=== PATIENT | female | born 1990 | race Caucasian/White ===

== ENCOUNTER 2020-02-22 21:25 | Emergency (ER) | payer MEDICAID, SELFPAY ==
[2020-02-22 21:32] VITALS: BP 125/70; BP 140/90; PULSE 58; PULSE 60; RESP 18; TEMP 37.2; O2SAT 100; BMI 40.6
[2020-02-22 21:39] LABS: Glucose, Whole Blood 138 mg/dL (60-115)
--- NOTE | 2020-02-22 21:39 | ED_ITS ---
HPI - Nausea/Vomiting/Diarrhea General Chief complaint: Nausea/Vomiting/Diarrhea Stated complaint: NAUSEA,VOMITING Time Seen by Provider: 02/22/20 21:28 Source: patient Mode of arrival: EMS Limitations: no limitations History of Present Illness HPI Narrative: This is a 29-year-old female with past medical history of asthma presents via EMS with development of nausea, vomiting, diarrhea that started yesterday and is associated with epigastric pain and she states she has had this before and that it was gastritis at that time. Otherwise patient denies fever, urinary pain/burning/frequency. And states her LMP was last month and she is sexually active. She denies any sick contacts Related Data Previous Rx's Medication Instructions Recorded omeprazole 40 mg PO DAILY 30 Days #30 cap 02/23/20 ondansetron HCl [Zofran] 4 mg PO Q6H PRN #10 tab 02/23/20 Allergies Allergy/AdvReac Type Severity Reaction Status Date / Time No Known Allergies Allergy Verified 02/22/20 21:38 Review of Systems Review of Systems: Pertinent positives and negatives as stated in HPI 10 point review of systems otherwise negative. PMFSH Past Medical History Source: nursing notes reviewed Medical History Acid reflux Asthma Gastritis Social History Social History Smoked in Last 30 Days: No Advance Directives: No Advance Directives Information Provided: No Physical Exam Vital Signs: Vital Signs: Last Vital Signs Temp 98.9 F 02/22/20 21:32 Pulse 58 02/22/20 21:32 Resp 18 02/22/20 21:32 BP 125/70 02/22/20 21:32 Pulse Ox 100 02/22/20 21:32 Body Mass Index 40.6 VITAL SIGNS: Reviewed. GENERAL: Well developed, well nourished, in no acute distress. HEAD: Normocephalic/atraumatic, EYES: PERRLA, EOMI intact without pain, no nystagmus/pallor/icterus noted EARS: Ext canals without abnormality, TMs non-bulging and non-erythematous NOSE: Nares patent bilateral OROPHARYNX: no oral lesions noted, posterior pharynx clear and non-erythematous without noted tonsillar enlargement/erythema/exudates NECK: Supple, no adenopathy LUNGS: Normal breath sounds. No adventitious sounds or accessory muscle use. SpO2<100> CARDIOVASCULAR: Regular rate and rhythm without noted murmurs, no JVD or lower extremity edema. ABDOMEN: Soft, tenderness to palpation at the epigastrium as well as right upper quadrant and right lower quadrant, non-distended with bowel sounds. No rigidity. No guarding. No palpable masses or hernias noted MUSCULOSKELETAL: No tenderness, deformities, or effusions noted on gross inspection. EXTREMITIES: No cyanosis, clubbing or edema. SKIN: Inspection of the skin reveals no rashes, ulcerations, jaundice, pallor, or petechiae. NEUROLOGIC: Alert and oriented x 4. Strength and sensation to light touch were grossly intact x 4. Course Course Course Narrative: This is a 29-year-old female with history and clinical presentation suggestive of gastroenteritis, gastritis, pancreatitis, cholecystitis and doubt pancreatitis or diverticulitis at this time. On review of all investigations although there is a leukocytosis 20 on review of all evidence this seems to be most consistent with a stress response. CT scan was negative for any acute findings and is suspected that this may be hyperemesis cannabis. All results and findings were discussed with patient, she will be provided with the p.o. trial and then discharged home as long as she tolerates. MDM - Nausea/Vomiting/Diarrhea Lab Data Result diagrams: 02/22/20 21:55 02/22/20 21:55 Labs: Lab Results 02/22/20 02/22/20 02/22/20 Range/Units 21:35 21:55 21:55 WBC 20.7 H (4.8-10.8) X10*3/uL RBC 4.99 (4.20-5.50) X10*6/uL Hgb 14.1 (12.0-16.0) g/dl Hct 41.6 (37-47) % MCV 83.4 (80-98) fL MCH 28.3 (27.0-33.0) pg MCHC 33.9 (31.0-35.0) g/dl RDW 12.9 (11.0-16.0) % Plt Count 294 (160-400) X10*3/uL MPV 10.4 (9.4-12.3) fL Immature Gran % (Auto) 0.7 H (0.0-0.4) % Neut % (Auto) 87.0 H (45-73) % Lymph % (Auto) 8.9 L (20-40) % [place] % (Auto) 3.3 (2-11) % Eos % (Auto) 0.0 (0-4) % Baso % (Auto) 0.1 (0-2) % Lymph # (Auto) 1.9 (1.2-4.9) X10*3/uL [place] # (Auto) 0.7 (0.1-1.2) X10*3/uL Eos # (Auto) 0.0 (0.0-0.4) X10*3/uL Baso # (Auto) 0.0 (0.0-0.2) X10*3/uL Abs Immat Gran (auto) 0.14 H (0.00-0.03) X10*3/uL Absolute Neuts (auto) 18.1 H (2.0-8.3) X10*3/uL Absolute Nucleated RBC 0.000 (0.0-0.012) X10*3/uL Nucleated RBC % (auto) 0.0 (0.0-0.2) /100WBC Sodium 137 (135-145) mmol/L Potassium 3.9 (3.3-5.1) mmol/l Chloride 104 (96-108) mmol/L Carbon Dioxide 21 L (22-29) mmol/L Anion Gap 16 (12-20) BUN 15 (9-16) mg/dL Creatinine 0.78 (0.5-1.4) mg/dL Estim Creat Clear Calc 123.8 Estimated GFR > 60 POC Glucose 138 H (60-115) mg/dL Random Glucose 147 H (60-115) mg/dL Calcium 8.9 (8.4-10.2) mg/dL Total Bilirubin 0.6 (0.0-1.0) mg/dL AST 31 (5-31) U/L ALT 46 H (0-31) U/L Alkaline Phosphatase 74 (39-117) U/L Total Protein 8.4 H (6.5-8.0) g/dL Albumin 4.7 (3.5-5.0) g/dL Lipase 13 (8-78) U/L Urine Color Urine Appearance Urine pH (5.0-8.0) Ur Specific [place] (1.005-1.025) Urine Protein (NEG-TRACE) MG/DL Urine Glucose (UA) (NEG) MG/DL Urine Ketones (NEG) MG/DL Urine Blood (NEG) Urine Nitrite (NEG) Ur Leukocyte Esterase (NEG) Urine RBC (0) /HPF Urine WBC (0-4) /HPF Ur Squamous Epith Cells /LPF Urine Bacteria /LPF Urine Mucus /LPF Urine Test (NEGATIVE) 02/22/20 Range/Units 21:55 WBC (4.8-10.8) X10*3/uL RBC (4.20-5.50) X10*6/uL Hgb (12.0-16.0) g/dl Hct (37-47) % MCV (80-98) fL MCH (27.0-33.0) pg MCHC (31.0-35.0) g/dl RDW (11.0-16.0) % Plt Count (160-400) X10*3/uL MPV (9.4-12.3) fL Immature Gran % (Auto) (0.0-0.4) % Neut % (Auto) (45-73) % Lymph % (Auto) (20-40) % [place] % (Auto) (2-11) % Eos % (Auto) (0-4) % Baso % (Auto) (0-2) % Lymph # (Auto) (1.2-4.9) X10*3/uL [place] # (Auto) (0.1-1.2) X10*3/uL Eos # (Auto) (0.0-0.4) X10*3/uL Baso # (Auto) (0.0-0.2) X10*3/uL Abs Immat Gran (auto) (0.00-0.03) X10*3/uL Absolute Neuts (auto) (2.0-8.3) X10*3/uL Absolute Nucleated RBC (0.0-0.012) X10*3/uL Nucleated RBC % (auto) (0.0-0.2) /100WBC Sodium (135-145) mmol/L Potassium (3.3-5.1) mmol/l Chloride (96-108) mmol/L Carbon Dioxide (22-29) mmol/L Anion Gap (12-20) BUN (9-16) mg/dL Creatinine (0.5-1.4) mg/dL Estim Creat Clear Calc Estimated GFR POC Glucose (60-115) mg/dL Random Glucose (60-115) mg/dL Calcium (8.4-10.2) mg/dL Total Bilirubin (0.0-1.0) mg/dL AST (5-31) U/L ALT (0-31) U/L Alkaline Phosphatase (39-117) U/L Total Protein (6.5-8.0) g/dL Albumin (3.5-5.0) g/dL Lipase (8-78) U/L Urine Color YELLOW Urine Appearance HAZY Urine pH 6.5 (5.0-8.0) Ur Specific [place] >= 1.030 H (1.005-1.025) Urine Protein 1+ H (NEG-TRACE) MG/DL Urine Glucose (UA) NEG (NEG) MG/DL Urine Ketones 40 (NEG) MG/DL Urine Blood 2+ H (NEG) Urine Nitrite NEG (NEG) Ur Leukocyte Esterase NEG (NEG) Urine RBC 15-29 H (0) /HPF Urine WBC 0 (0-4) /HPF Ur Squamous Epith Cells 2+ /LPF Urine Bacteria TRACE /LPF Urine Mucus 3+ /LPF Urine Test NEGATIVE (NEGATIVE) Discharge Plan Discharge Clinical Impression: Cannabis hyperemesis syndrome concurrent with and due to cannabis dependence, Gastroenteritis Patient Disposition: Home, Self-Care Instructions: Diet for Stomach Ulcers and Gastritis (ED), Gastroenteritis (ED) Additional Instructions: 1. Continue to increase your fluid intake especially with water. 2. Follow-up with your primary care provider by calling the office in the [facility]. 3. Decrease the amount marijuana smoked. The patient and/or family acknowledge understanding of results (as applicable), diagnosis, treatment plan, need for follow up, and symptoms that should prompt a return to the emergency room. Prescriptions: New ondansetron HCl [Zofran] 4 mg tablet 4 mg PO Q6H PRN (Reason: nausea and vomiting) Qty: 10 RF: 0 omeprazole 40 mg capsule,delayed release(DR/EC) 40 mg PO DAILY 30 Days Qty: 30 RF: 0 Referrals: [facility] [Primary Care Provider] - 2 days (Evaluation for gastritis and possible hyperemesis cannabis)
[2020-02-22] MEDS: Lidocaine HCl Viscous 2 % 15 ML SOLUTION 10 ML MUCOUS MEM (21:47)
[2020-02-22] MEDS: Magnesium Hydrox/Alum Hydrox 30 ML ORAL.SUSP PO (21:47)
[2020-02-22] MEDS: ondansetron HCL 4 MG/2 ML VIAL IVPUSH (21:47)
[2020-02-22] MEDS: 0.9 % Sodium Chloride 1,000 ML 999 ML IV (21:47)
[2020-02-22] MEDS: Famotidine 20 MG TABLET PO (21:47)
[2020-02-22 22:02] LABS: Basophils Percent Auto 0.1 % (0-2); Hematocrit 41.6 % (37-47); Hemoglobin 14.1 g/dl (12.0-16.0); Imm Gran Abs Auto 0.14 X10*3/uL (0.00-0.03); Imm Gran Pct Auto 0.7 % (0.0-0.4); Lymphocytes Absolute Auto 1.9 X10*3/uL (1.2-4.9); Lymphocytes Percent Auto 8.9 % (20-40); Mean Corpuscular HGB Conc 33.9 g/dl (31.0-35.0); Mean Corpuscular Hemoglobin 28.3 pg (27.0-33.0); Mean Corpuscular Volume 83.4 fL (80-98); Mean Platelet Volume 10.4 fL (9.4-12.3); Monocytes Absolute Auto 0.7 X10*3/uL (0.1-1.2); Monocytes Percent Auto 3.3 % (2-11); Neutrophils Absolute Auto 18.1 X10*3/uL (2.0-8.3); Platelet Count 294 X10*3/uL (160-400); Red Blood Count 4.99 X10*6/uL (4.20-5.50); Red Cell Distribution Width 12.9 % (11.0-16.0); White Blood Count 20.7 X10*3/uL (4.8-10.8)
[2020-02-22 22:03] LABS: MANUAL DIFF FLAG NO
[2020-02-22 22:07] LABS: Glucose Urine UA NEG (NEG); Leukocyte Esterase Urine NEG (NEG); Nitrite Urine NEG (NEG); PH 6.5 (5.0-8.0); Specific Gravity - Urine >= 1.030 (1.005-1.025); Urine Blood 2+ (NEG); Urine Ketones 40 MG/DL (NEG); Urine Protein 1+ MG/DL (NEG-TRACE)
[2020-02-22] MEDS: Metoclopramide HCl 10 MG/2 ML VIAL IVPUSH (22:08)
[2020-02-22] MEDS: diphenhydrAMINE HCL 50 MG/ML VIAL 25 MG IVPUSH (22:08)
[2020-02-22 22:09] LABS: Appearance Urine HAZY; Color Urine YELLOW
[2020-02-22 22:10] LABS: UPreg QC Valid YES; Urine Pregnancy NEGATIVE (NEGATIVE)
--- NOTE | 2020-02-22 22:21 | CT_ITS ---
EXAMINATION: CT ABDOMEN AND PELVIS WITH CONTRAST CLINICAL INFORMATION: Right-sided abdominal pain. COMPARISON: 05/26/2014. TECHNIQUE: Contiguous axial thin section helical images of the abdomen and pelvis were performed following the administration of 85 mL of intravenous Omnipaque 350. The data set was reformatted in the coronal and sagittal planes and reviewed on an independent workstation. DLP: 791 mGy-cm. FINDINGS: The visualized lung bases are clear. The visualized portions of the heart are unremarkable. The liver is of normal size and mild diffuse decreased attenuation without focal lesions nor intrahepatic biliary ductal dilation. A normal gallbladder is identified. There is no wall thickening or discernible pericholecystic fluid. The spleen, pancreas, adrenal glands are unremarkable. Both kidneys are of normal size and attenuation without hydronephrosis or nephrolithiasis. Following the administration of IV contrast, prompt symmetric nephrograms are displayed. There is no abdominal free fluid. There is neither mesenteric nor retroperitoneal lymphadenopathy. Normal unopacified loops of small and large bowel are identified. Normal appendix is identified. There is no pelvic free fluid. The urinary bladder is unremarkable. There is neither pelvic nor inguinal lymphadenopathy. Bone windows: Neither sclerotic nor lytic bone lesions are identified. CT/CT abdomen pelvis w con IMPRESSION: No evidence for acute abdominal or pelvic inflammatory or infectious processes. Automated exposure control (Care Dose) Adjustment of the mA and/or kv according to patient size (this includes techniques or standardized protocols for targeted exams where dose is matched to indication / reason for exam; i.e. extremities or head).
[2020-02-22 22:22] LABS: Alanine Aminotransferase 46 U/L (0-31); Albumin Level 4.7 g/dL (3.5-5.0); Alkaline Phosphatase 74 U/L (39-117); Anion Gap 16 (12-20); Aspartate Amino Transferase 31 U/L (5-31); Bilirubin Total 0.6 mg/dL (0.0-1.0); Blood Urea Nitrogen 15 mg/dL (9-16); Calcium 8.9 mg/dL (8.4-10.2); Carbon Dioxide 21 mmol/L (22-29); Chloride 104 mmol/L (96-108); Creatinine Clr Calc Pharmacy 123.8; Estimated Glomerular Filt Rate > 60; Glucose Random 147 mg/dL (60-115); Lipase 13 U/L (8-78); Potassium 3.9 mmol/l (3.3-5.1); Sodium 137 mmol/L (135-145); Total Protein 8.4 g/dL (6.5-8.0)
[2020-02-22 22:25] LABS: Squamous Epithelial Cell Urine 2+ /LPF; WBC Urine 0 /HPF (0-4)
[2020-02-22 22:26] LABS: Bacteria Urine TRACE /LPF; Mucus Urine 3+ /LPF
--- NOTE | 2020-02-22 22:30 | PC.NURSE ---
pt not tolerating po meds. to ct scan.
[2020-02-22] MEDS: LORazepam 2 MG/ML VIAL 1 MG IVPUSH (23:03)
[2020-02-22] MEDS: Prochlorperazine Edisylate 10 MG/2 ML VIAL 5 MG IVPUSH (23:03)
[2020-02-22] MEDS: iohexoL 350 MG/ML 100 ML INFUS..BTL IV (23:23)
== END 2020-02-23 01:30 | disposition home or self-care (01) ==
PROVIDERS: Emergency Provider Student in an Organized Health Care Education/Training Program
DX: K52.1 Toxic gastroenteritis and colitis (principal); F12.188 Cannabis abuse with other cannabis-induced disorder; R11.2 Nausea with vomiting, unspecified; Z79.899 Other long term (current) drug therapy
CPT/HCPCS: 36415; 74177; 80053; 81001; 81003; 81025; 82947; 83690; 85025; 96361; 96374; 96375; 99284; J1200; J2060; J2405; J2765; Q9967

== ENCOUNTER → 2020-05-31 12:49 | Outpatient (BNVA) | payer MEDICAID, SELFPAY | PROVIDERS: PCP Nurse Practitioner Family; Visit Provider Physician Assistant ==

== ENCOUNTER → 2020-06-09 07:50 | Outpatient (BNVA) | payer MEDICAID, SELFPAY | PROVIDERS: PCP Nurse Practitioner Family; Visit Provider Surgery ==

== ENCOUNTER → 2020-07-03 08:19 | Outpatient (BNVA) | payer MEDICAID, SELFPAY | PROVIDERS: PCP Nurse Practitioner Family; Visit Provider Surgery ==

== ENCOUNTER → 2020-07-13 08:08 | Outpatient (BNVA) | payer MEDICAID, SELFPAY | PROVIDERS: PCP Nurse Practitioner Family; Visit Provider Dietitian, Registered ==

== ENCOUNTER → 2020-07-25 08:14 | Outpatient (BNVA) | payer MEDICAID, SELFPAY | PROVIDERS: PCP Nurse Practitioner Family; Visit Provider Dietitian, Registered ==

== ENCOUNTER 2020-10-05 06:53 | Emergency (ER) | payer MEDICAID, SELFPAY ==
--- NOTE | ~2020-10-05 | CT_ITS ---
EXAMINATION: CT ABDOMEN AND PELVIS WITHOUT CONTRAST CLINICAL INFORMATION: Abdominal pain. Question kidney stones. Question gallstones. COMPARISON: February 22, 2020 TECHNIQUE: Multidetector volumetric imaging was performed from the superior aspect of the liver through the pubic symphysis. Sagittal and coronal reformatted images were obtained on the technologist's workstation. This CT examination was performed using dose optimization techniques as appropriate, variously including the following: *Automated exposure control *Adjustment of mA and/or kV according to patient size (this includes techniques or standardized protocols for targeted exams where dose is matched to indication/reason for exam; i.e. extremities or head) *Use of iterative reconstruction technique DLP: 861 mGy-cm FINDINGS: LUNG BASES: The visualized lung bases are unremarkable. No pleural or pericardial effusion. LIVER, GALLBLADDER, AND BILIARY TREE: There is diffuse fatty infiltration of the liver. No focal hepatic mass identified. No intrahepatic bile duct dilatation. The gallbladder is unremarkable with no evidence of radiopaque gallstones, gallbladder wall thickening, or obvious pericholecystic inflammatory changes. PANCREAS: Unremarkable. SPLEEN: Unremarkable. ADRENAL GLANDS: Unremarkable. KIDNEYS AND URETERS: The kidneys are normal in size, shape, and attenuation. No hydronephrosis, hydroureter, or calculi seen. No perinephric stranding. BLADDER: Decompressed. No definite abnormality appreciated. GASTROINTESTINAL TRACT: No free air or free fluid identified. No dilated loops of large or small bowel. No pericolonic inflammatory change. The appendix appears unremarkable. ABDOMINAL WALL: No significant hernia is appreciated. LYMPH NODES: No lymphadenopathy appreciated. VASCULAR: Unremarkable. PELVIC VISCERA: No free fluid or suspicious mass. Just inferior to the left adnexa there is question of some stranding versus vessels. This is similar to previous CT scan scan of February 22, 2020 No abnormal collection is appreciated. OSSEOUS STRUCTURES: No destructive bony lesions identified. There is degenerative disc disease seen at the L4-L5 level. There is a prominent posterior disc bulge with calcification at this level. CT/CT abdomen pelvis wo con IMPRESSION: Diffuse fatty infiltration of the liver. No evidence of obstructive uropathy. No evidence of acute cholecystitis. No evidence of bowel obstruction or ileus.
[2020-10-05 07:35] VITALS: BP 135/90; PULSE 93; RESP 16; TEMP 37; O2SAT 100
[2020-10-05 08:07] VITALS: BP 149/94; PULSE 101; RESP 18; TEMP 36.5; O2SAT 98
[2020-10-05 08:14] VITALS: BP 149/94; BMI 35.4
--- NOTE | 2020-10-05 08:36 | ED_ITS ---
HPI - Abdominal Pain General Chief Complaint: Abdominal Pain Stated Complaint: vomiting stomach pain Time Seen by Provider: 10/05/20 08:13 Source: patient Mode of arrival: ambulatory Limitations: no limitations History of Present Illness HPI narrative: Patient presents to ED for epigastric abdominal pain. Patient s tates pain for 3 days with nausea vomiting. Patient describes pain as acid burning sensation going up throat. Patient states history of acid reflux. Patient admits to smoking marijuana couple of days ago and then symptoms started. Patient was seen this past February with similar presentation. per triage patient was kicked out of her see 1 hour ago because she was making herself vomit. MD elicited complaint: abdominal pain Related Data Home Medications Medication Instructions Recorded Confirmed amitriptyline 10 mg tablet 10 mg PO BEDTIME 05/31/20 06/09/20 albuterol sulfate 90 mcg/actuation 2 puff INHALATION Q6H PRN 06/09/20 06/09/20 aerosol inhaler Previous Rx's Medication Instructions Recorded omeprazole 40 mg capsule,delayed 40 mg PO DAILY 30 Days #30 cap 02/23/20 release ondansetron HCl 4 mg tablet 4 mg PO Q6H PRN #10 tab 02/23/20 (Zofran) famotidine 20 mg tablet (Pepcid) 20 mg PO BID #20 tab 10/05/20 ondansetron HCl 4 mg tablet 4 mg PO Q6H PRN #16 tab 10/05/20 (Zofran) Allergies Allergy/AdvReac Type Severity Reaction Status Date / Time No Known Allergies Allergy Verified 05/31/20 13:21 Review of Systems Review of Systems Yes all other systems are reviewed and are negative Constitutional: Reports as per HPI and Reports no additional constitutional complaints Eyes: Reports as per HPI and Reports no additional eye complaints Reports system reviewed and no additional complaints, except as documented and Reports as per HPI Cardiovascular: Reports as per HPI and Reports no additional cardiovascular complaints Gastrointestinal: Reports as per HPI, Reports no additional gastrointestinal complaints, Reports abdominal pain, Reports nausea and Reports vomiting Genitourinary: Reports no additional female genitourinary complaints and Reports as per HPI Musculoskeletal: Reports no additional musculoskeletal complaints and Reports as per HPI Skin/Breast: Reports system reviewed and no additional complaints, except as docu and Reports as per HPI Reports system reviewed and no additional complaints, except as documented and Reports as per HPI Psychiatric: Reports no additional psychiatric complaints and Reports as per HPI Endocrine: Reports no additional endocrine complaints and Reports as per HPI Physical Exam Vital Signs: Vital Signs: Last Vital Signs Temp 98.0 F 10/05/20 11:42 Pulse 82 10/05/20 11:42 Resp 17 10/05/20 11:42 BP 130/77 10/05/20 11:42 Pulse Ox 95 10/05/20 11:42 Body Mass Index 35.4 Const: General: cooperative, healthy appearing, well developed, alert, awake, Physically active and acute distress Orientation/consciousness: patient oriented x3 HENMT: Head: Yes normal to inspection, Yes No palpable skull fracture present, Yes normocephalic, Yes atraumatic and No abrasion Ears: hearing grossly normal bilaterally, external ears normal, TM's normal bilaterally, TM normal on the right, TM normal on the left, EAC's normal, mastoids normal and no periauricular adenopathy Eyes: General: appearance normal, both eyes and all related structures Neck: Neck: Yes normal visual inspection, Yes full ROM, Yes no lymphadenopathy, Yes no meningeal signs, Yes trachea midline, Yes supple and No tender Chest: Chest palpation & inspection: normal inspection of the chest and normal palpation of entire chest wall Resp: Effort & Inspection: normal respiratory effort and able to speak in complete sentences Auscultation: clear to auscultation bilaterally Cardio: Jugular venous distension: no JVD Heart sounds: S1 normal heart sound present and S2 normal heart sound present GI: Inspection: Yes normal to inspection and No abdominal wall ecchymosis Palpation (GI): Soft to palpation, not firm, Tenderness to palpation present (GI) in the epigastrum; Negative for not at McBurney's point, not periumbilically, not suprapubicly, [place]'s sign negative, obturator sign negative, psoas sign negative, with no rebound tenderness and Rovsing's sign negative, no guarding and not rigid : General: No CVA tenderness and Yes no CVA tenderness Back/Spine/Pelvis: Back: no CVA tenderness, No CVA tenderness and No back tenderness Skin: General skin exam: no rashes or lesions noted and elasticity normal Neuro: General: patient oriented x3, gait normal, no meningeal signs and CN's II-XI intact bilaterally Cranial nerves: Yes CN's II-XII intact bilaterally Extrem: General: Yes normal to inspection and Yes full ROM Psych: Appearance: grossly normal, well kempt and not disheveled Course Course Course Narrative: Will get records from [facility]. Will order basic labs and GERD medication. Reevaluation(s) Reevaluation #1: Patient sleeping in bed not in any distress. Patient feels better. Patient's white count [id number]. Comparison to labs done in February of 2020 patient usually runs a high white blood cell count. Last visit [place] [id number]. Will re-evaluate abdomen. Waiting for lipase. Does not believe presently patient is abdominal CT scan. Patient had abdominal CT scans in February 2020 with similar presentation that was normal. Patient feeling better after receiving GI cocktail with Benadryl. Time: 10:27 Reevaluation #2: Patient urine showed blood so she was sent for CT scan of the abdomen which came back normal and negative for any acute etiology. Patient will be discharged with anti nausea medication his stool to follow-up with a PCP. Patient had another episode of emesis but resolved with Zofran befor CT scan being done. Time: 13:25 Reevaluation #3: CT scan came back normal. Patient discharged with antiemetics told to follow-up with PCP. Diagnosis cyclic vomiting versus GERD. Patient passed p.o. challenge Time: 13:40 MDM - Abdominal Pain MDM Narrative Medical decision making narrative: Cyclic vomiting Lab Data Result diagrams: 10/05/20 08:50 10/05/20 08:50 Labs: Lab Results 10/05/20 10/05/20 10/05/20 Range/Units 08:50 08:50 08:50 WBC 23.2 H (4.8-10.8) X10*3/uL RBC 5.60 H (4.20-5.50) X10*6/uL Hgb 15.4 (12.0-16.0) g/dl Hct 46.8 (37-47) % MCV 83.6 (80-98) fL MCH 27.5 (27.0-33.0) pg MCHC 32.9 (31.0-35.0) g/dl RDW 12.9 (11.0-16.0) % Plt Count 389 D (160-400) X10*3/uL MPV 10.1 (9.4-12.3) fL Immature Gran % (Auto) 0.6 H (0.0-0.4) % Neut % (Auto) 78.7 H (45-73) % Lymph % (Auto) 12.9 L (20-40) % [place] % (Auto) 7.6 (2-11) % Eos % (Auto) 0.0 (0-4) % Baso % (Auto) 0.2 (0-2) % Lymph # (Auto) 3.0 (1.2-4.9) X10*3/uL [place] # (Auto) 1.8 H (0.1-1.2) X10*3/uL Eos # (Auto) 0.0 (0.0-0.4) X10*3/uL Baso # (Auto) 0.0 (0.0-0.2) X10*3/uL Abs Immat Gran (auto) 0.13 H (0.00-0.03) X10*3/uL Absolute Neuts (auto) 18.3 H (2.0-8.3) X10*3/uL Absolute Nucleated RBC 0.000 (0.0-0.012) X10*3/uL Nucleated RBC % (auto) 0.0 (0.0-0.2) /100WBC Smear Tech's Comments VERIFIED Sodium 144 (135-145) mmol/L Potassium 4.0 (3.3-5.1) mmol/L Chloride 108 (96-108) mmol/L Carbon Dioxide 23 (22-29) mmol/L Anion Gap 17 (12-20) BUN 18 H (9-16) mg/dL Creatinine 0.97 (0.5-1.4) mg/dL Estim Creat Clear Calc 91.5 Estimated GFR > 60 Random Glucose 119 H (60-115) mg/dL Calcium 10.6 H D (8.4-10.2) mg/dL Total Bilirubin 0.6 (0.0-1.0) mg/dL Direct Bilirubin 0.3 (0.0-0.5) mg/dL AST 34 H (5-31) U/L ALT 49 H (0-31) U/L Alkaline Phosphatase 90 D (39-117) U/L Total Protein 9.4 H (6.5-8.0) g/dL Albumin 4.8 (3.5-5.0) g/dL Lipase 17 (8-78) U/L Beta HCG, Quant < 2 mIU/mL Urine Color Urine Appearance Urine pH (5.0-8.0) Ur Specific [place] (1.005-1.025) Urine Protein (NEG-TRACE) MG/DL Urine Glucose (UA) (NEG) MG/DL Urine Ketones (NEG) MG/DL Urine Blood (NEG) Urine Nitrite (NEG) Ur Leukocyte Esterase (NEG) Urine RBC (0) /HPF Urine WBC (0-4) /HPF Ur Squamous Epith Cells /LPF Urine Bacteria /LPF 10/05/20 Range/Units 11:27 WBC (4.8-10.8) X10*3/uL RBC (4.20-5.50) X10*6/uL Hgb (12.0-16.0) g/dl Hct (37-47) % MCV (80-98) fL MCH (27.0-33.0) pg MCHC (31.0-35.0) g/dl RDW (11.0-16.0) % Plt Count (160-400) X10*3/uL MPV (9.4-12.3) fL Immature Gran % (Auto) (0.0-0.4) % Neut % (Auto) (45-73) % Lymph % (Auto) (20-40) % [place] % (Auto) (2-11) % Eos % (Auto) (0-4) % Baso % (Auto) (0-2) % Lymph # (Auto) (1.2-4.9) X10*3/uL [place] # (Auto) (0.1-1.2) X10*3/uL Eos # (Auto) (0.0-0.4) X10*3/uL Baso # (Auto) (0.0-0.2) X10*3/uL Abs Immat Gran (auto) (0.00-0.03) X10*3/uL Absolute Neuts (auto) (2.0-8.3) X10*3/uL Absolute Nucleated RBC (0.0-0.012) X10*3/uL Nucleated RBC % (auto) (0.0-0.2) /100WBC Smear Tech's Comments Sodium (135-145) mmol/L Potassium (3.3-5.1) mmol/L Chloride (96-108) mmol/L Carbon Dioxide (22-29) mmol/L Anion Gap (12-20) BUN (9-16) mg/dL Creatinine (0.5-1.4) mg/dL Estim Creat Clear Calc Estimated GFR Random Glucose (60-115) mg/dL Calcium (8.4-10.2) mg/dL Total Bilirubin (0.0-1.0) mg/dL Direct Bilirubin (0.0-0.5) mg/dL AST (5-31) U/L ALT (0-31) U/L Alkaline Phosphatase (39-117) U/L Total Protein (6.5-8.0) g/dL Albumin (3.5-5.0) g/dL Lipase (8-78) U/L Beta HCG, Quant mIU/mL Urine Color YELLOW Urine Appearance HAZY Urine pH 6.0 (5.0-8.0) Ur Specific [place] 1.025 (1.005-1.025) Urine Protein 1+ H (NEG-TRACE) MG/DL Urine Glucose (UA) NEG (NEG) MG/DL Urine Ketones 15 (NEG) MG/DL Urine Blood 2+ H (NEG) Urine Nitrite NEG (NEG) Ur Leukocyte Esterase NEG (NEG) Urine RBC 0-2 (0) /HPF Urine WBC 0-2 (0-4) /HPF Ur Squamous Epith Cells TRACE /LPF Urine Bacteria TRACE /LPF Discharge Plan Discharge Clinical Impression: GERD (gastroesophageal reflux disease), Cyclical vomiting Patient Disposition: Home, Self-Care Instructions: Gastroesophageal Reflux Disease (ED), Cyclic Vomiting Syndrome (ED) Additional Instructions: Return to the ED immediately for worsening belly pain, intractable nausea/vomiting, fever, chills, dysuria, hematuria, flank pain, chest pain, shortness of breath, ir any other concerning symptoms Prescriptions: New ondansetron HCl [Zofran] 4 mg tablet 4 mg PO Q6H PRN (Reason: nause) Qty: 16 RF: 0 famotidine [Pepcid] 20 mg tablet 20 mg PO BID Qty: 20 RF: 0 No Action ondansetron HCl [Zofran] 4 mg tablet 4 mg PO Q6H PRN (Reason: nausea and vomiting) Qty: 10 RF: 0 omeprazole 40 mg capsule,delayed release(DR/EC) 40 mg PO DAILY 30 Days Qty: 30 RF: 0 amitriptyline 10 mg tablet 10 mg PO BEDTIME RF: 0 albuterol sulfate 90 mcg/actuation HFA aerosol inhaler 2 puff inhalation Q6H PRNRF: 0 Referrals: Liudmila Wheeler [Primary Care Provider] - 2 days (Cyclic vomiting/GERD. CT scan came back negative for any acute abdominal etiology. Labs at baseline.) Stand Alone Forms: Work/School Release Interventions: ED Discharge Assessment Last Done: 10/05/20 13:48 Discharge Date/Time: 10/05/20 13:48 Print Language: Pakistani [facility] Past Medical History Medical History Acid reflux Asthma Gastritis GERD (gastroesophageal reflux disease) Morbid obesity Surgical History (Updated 05/31/20 @ 13:13 by Randy [place]) No significant past surgical history Family History Family History (Updated 05/31/20 @ 13:14 by LISA Neal) Mother No problems noted. Father No problems noted. Brother No problems noted. Brother No problems noted. Social History Social History (Updated 05/31/20 @ 13:14 by Randy [place]) Alcohol intake: never Advance Directives: No Advance Directives Information Provided: No
[2020-10-05 08:56] LABS: Basophils Percent Auto 0.2 % (0-2); Hematocrit 46.8 % (37-47); Imm Gran Abs Auto 0.13 X10*3/uL (0.00-0.03); Imm Gran Pct Auto 0.6 % (0.0-0.4); Lymphocytes Percent Auto 12.9 % (20-40); MANUAL DIFF FLAG SCAN; Mean Corpuscular HGB Conc 32.9 g/dl (31.0-35.0); Mean Corpuscular Hemoglobin 27.5 pg (27.0-33.0); Mean Corpuscular Volume 83.6 fL (80-98); Mean Platelet Volume 10.1 fL (9.4-12.3); Monocytes Absolute Auto 1.8 X10*3/uL (0.1-1.2); Monocytes Percent Auto 7.6 % (2-11); Neutrophils Absolute Auto 18.3 X10*3/uL (2.0-8.3); Neutrophils Percent Auto 78.7 % (45-73); Platelet Count 389 X10*3/uL (160-400); Red Cell Distribution Width 12.9 % (11.0-16.0); SCAN SMEAR FLAG 1; White Blood Count 23.2 X10*3/uL (4.8-10.8)
[2020-10-05] MEDS: Famotidine/PF 20 MG/2 ML VIAL IVPUSH (08:56)
[2020-10-05] MEDS: diphenhydrAMINE HCL 50 MG/ML VIAL IVPUSH (08:56)
[2020-10-05] MEDS: PHENobarb/Hyoscy/Atropine/Scop 10 ML ELIXIR PO (08:56)
[2020-10-05] MEDS: Lidocaine HCl Viscous 2 % 15 ML SOLUTION MUCOUS MEM (08:58)
[2020-10-05] MEDS: 0.9 % Sodium Chloride 1,000 ML 999 ML IV (08:58)
[2020-10-05 08:59] LABS: Hemoglobin 15.4 g/dl (12.0-16.0)
[2020-10-05 09:23] LABS: Alanine Aminotransferase 49 U/L (0-31); Albumin Level 4.8 g/dL (3.5-5.0); Alkaline Phosphatase 90 U/L (39-117); Anion Gap 17 (12-20); Aspartate Amino Transferase 34 U/L (5-31); Bilirubin Direct 0.3 mg/dL (0.0-0.5); Bilirubin Total 0.6 mg/dL (0.0-1.0); Blood Urea Nitrogen 18 mg/dL (9-16); Calcium 10.6 mg/dL (8.4-10.2); Carbon Dioxide 23 mmol/L (22-29); Chloride 108 mmol/L (96-108); Creatinine Clr Calc Pharmacy 91.5; Estimated Glomerular Filt Rate > 60; Glucose Random 119 mg/dL (60-115); Sodium 144 mmol/L (135-145); Total Protein 9.4 g/dL (6.5-8.0)
[2020-10-05 09:24] LABS: HCG Quantitative < 2 mIU/mL
[2020-10-05 09:35] LABS: SLIDE REVIEW VERIFIED
[2020-10-05 10:51] LABS: Lipase 17 U/L (8-78)
[2020-10-05 11:35] LABS: Glucose Urine UA NEG (NEG); Leukocyte Esterase Urine NEG (NEG); Nitrite Urine NEG (NEG); Specific Gravity - Urine 1.025 (1.005-1.025); UACC Culture Trigger NO; Urine Blood 2+ (NEG); Urine Ketones 15 MG/DL (NEG); Urine Protein 1+ MG/DL (NEG-TRACE)
[2020-10-05 11:38] LABS: Appearance Urine HAZY; Color Urine YELLOW
[2020-10-05 11:42] VITALS: BP 130/77; PULSE 82; RESP 17; TEMP 36.7; O2SAT 95
[2020-10-05 11:43] LABS: Bacteria Urine TRACE /LPF; RBC Urine 0-2 /HPF (0); Squamous Epithelial Cell Urine TRACE /LPF; WBC Urine 0-2 /HPF (0-4)
== END 2020-10-05 13:48 | disposition home or self-care (01) ==
PROVIDERS: Physician Assistant; Emergency Provider Emergency Medicine; PCP Nurse Practitioner Family
DX: K21.9 Gastro-esophageal reflux disease without esophagitis (principal); R11.15 Cyclical vomiting syndrome unrelated to migraine; R10.13 Epigastric pain; F12.99 Cannabis use, unspecified with unspecified cannabis-induced disorder; Z79.899 Other long term (current) drug therapy
CPT/HCPCS: 36415; 74176; 80053; 80076; 81001; 82248; 83690; 84702; 85025; 96365; 96372; 96375; 99284; J1200; J2405

== ENCOUNTER 2020-10-30 01:52 | Emergency (ER) | payer MEDICAID, SELFPAY ==
[2020-10-30 02:33] VITALS: BP 148/79; PULSE 60; RESP 16; TEMP 36.4; O2SAT 96; BMI 35.4
[2020-10-30 03:21] LABS: MANUAL DIFF FLAG NO
[2020-10-30 03:23] LABS: Basophils Percent Auto 0.2 % (0-2); Eosinophils Percent Auto 0.1 % (0-4); Hematocrit 42.7 % (37-47); Hemoglobin 14.1 g/dl (12.0-16.0); Imm Gran Pct Auto 0.6 % (0.0-0.4); Lymphocytes Absolute Auto 1.7 X10*3/uL (1.2-4.9); Lymphocytes Percent Auto 9.6 % (20-40); Mean Corpuscular Hemoglobin 27.3 pg (27.0-33.0); Mean Corpuscular Volume 82.8 fL (80-98); Mean Platelet Volume 10.1 fL (9.4-12.3); Monocytes Absolute Auto 0.5 X10*3/uL (0.1-1.2); Monocytes Percent Auto 2.6 % (2-11); Neutrophils Absolute Auto 15.7 X10*3/uL (2.0-8.3); Neutrophils Percent Auto 86.9 % (45-73); Platelet Count 324 X10*3/uL (160-400); Red Blood Count 5.16 X10*6/uL (4.20-5.50); Red Cell Distribution Width 13.1 % (11.0-16.0)
[2020-10-30] MEDS: ondansetron HCL 4 MG/2 ML VIAL IVPUSH (03:23)
[2020-10-30 03:37] LABS: COVID-19 Test Negative (Negative); IDNOW Serial# 9DD0AD1C
[2020-10-30 03:47] LABS: Alanine Aminotransferase 64 U/L (0-31); Albumin Level 4.5 g/dL (3.5-5.0); Alkaline Phosphatase 85 U/L (39-117); Anion Gap 16 (12-20); Aspartate Amino Transferase 36 U/L (5-31); Bilirubin Total 0.7 mg/dL (0.0-1.0); Blood Urea Nitrogen 10 mg/dL (9-16); Carbon Dioxide 21 mmol/L (22-29); Chloride 107 mmol/L (96-108); Creatinine Clr Calc Pharmacy 108.2; Estimated Glomerular Filt Rate > 60; Glucose Random 168 mg/dL (60-115); Lipase 26 U/L (8-78); Potassium 3.8 mmol/L (3.3-5.1); Sodium 140 mmol/L (135-145); Total Protein 8.3 g/dL (6.5-8.0)
[2020-10-30] MEDS: diphenhydrAMINE HCL 50 MG/ML VIAL IVPUSH (04:07)
[2020-10-30] MEDS: 0.9 % Sodium Chloride 1,000 ML 999 ML IV (04:58)
[2020-10-30] MEDS: Ketorolac Tromethamine 15 MG/ML VIAL IVPUSH (05:24)
[2020-10-30] MEDS: LORazepam 2 MG/ML VIAL IVPUSH (05:27)
[2020-10-30] MEDS: Haloperidol Lactate 5 MG/ML VIAL IM (05:28)
--- NOTE | 2020-10-30 05:48 | ED.ABDPAIN ---
HPI - Abdominal Pain General Chief Complaint: Abdominal Pain Stated Complaint: abd pain Time Seen by Provider: 10/30/20 05:05 Source: patient Mode of arrival: ambulatory Limitations: no limitations History of Present Illness HPI narrative: Comes to emergency room complaining of abdominal pain and vomiting. Patient states she smoked marijuana several days ago. Patient has been evaluated for similar issues in the past. Related Data Home Medications Medication Instructions Recorded Confirmed amitriptyline 10 mg tablet 10 mg PO BEDTIME 05/31/20 06/09/20 albuterol sulfate 90 mcg/actuation 2 puff INHALATION Q6H PRN 06/09/20 06/09/20 aerosol inhaler Previous Rx's Medication Instructions Recorded omeprazole 40 mg capsule,delayed 40 mg PO DAILY 30 Days #30 cap 02/23/20 release ondansetron HCl 4 mg tablet 4 mg PO Q6H PRN #10 tab 02/23/20 (Zofran) famotidine 20 mg tablet (Pepcid) 20 mg PO BID #20 tab 10/05/20 ondansetron HCl 4 mg tablet 4 mg PO Q6H PRN #16 tab 10/05/20 (Zofran) metoclopramide HCl 10 mg tablet 10 mg PO Q6H PRN #14 tab 10/30/20 (Reglan) Allergies Allergy/AdvReac Type Severity Reaction Status Date / Time No Known Allergies Allergy Verified 10/30/20 02:32 Review of Systems Review of Systems Constitutional : No Weight loss, No Fever, No Chills, No Night Sweats, No Fatigue, No Malaise ENT/Mouth : No Hearing loss, No Ear Pain, No Nasal Congestion, No Sinus Pain, No Hoarseness, No sore throat, No Rhinorrhea, No Swallowing Difficulty Eyes: No Eye Pain, No Swelling, No Redness, No Foreign Body, No Discharge, No Vision Changes Cardiovascular : No Chest Pain, No SOB, No Dyspnea on Exertion, No Orthopnea, No Edema, No Palpitations Respiratory : No Cough, No Sputum, No Wheezing, No Smoke Exposure, No Dyspnea Gastrointestinal : Complaining of nausea and vomiting No Diarrhea, No Constipation, complaining of diffuse abdominal cramping No Hematochezia, No Melena Genitourinary : no irregular bleeding, No Dysuria, No Urinary Frequency, No Hematuria, No Urinary Incontinence, No Urgency, No Flank Pain, No Urinary Flow Changes, No Hesitancy Musculoskeletal : No joint pain, No Myalgias, No Joint Swelling Skin : No Skin Lesions, No rash Neuro : No Weakness, No Numbness, No Paresthesias, No Loss of Consciousness, No Dizziness, No Headache Psych : No Anxiety/Panic, No Depression, No SI/HI/AH/VH, No Social Issues, Heme/Lymph: No Bruising, No Bleeding,No Lymphadenopathy Endocrine : No Polyuria, No Polydipsia, No Temperature Intolerance Physical Exam Vital Signs: Vital Signs: Last Vital Signs Temp 97.6 F 10/30/20 02:33 Pulse 60 10/30/20 02:33 Resp 16 10/30/20 06:25 BP 148/79 H 10/30/20 02:33 Pulse Ox 96 10/30/20 02:33 Body Mass Index 35.4 Const: Other: Appearance: Alert. Oriented X3. Actively vomiting Eyes: Pupils equal, round and reactive to light. ENT: Pharynx normal. Neck: Normal inspection. Neck supple. No lymph nodes noted. No crepitus CVS: Normal heart rate and rhythm. Pulses normal. Normal S1 and S2 Respiratory: No respiratory distress. Breath sounds normal. No Wheezing. No rales Abdomen: Soft, mild to moderate diffuse tenderness Skin: Skin warm , diaphoretic. Normal skin color. Normal skin turgor. Extremities: No lower extremity edema. No lower extremity edema. No Lacerations. No Rash Neuro: Oriented X 3. No motor deficit. No sensory deficit. Moving all extermities. No slurred speech. Course Course Course Narrative: Patient stopped vomiting after multiple courses medication including diphenhydramine, Haldol IM, ketorolac, lorazepam, Zofran. Patient's symptoms likely secondary to cyclical vomiting. At this time, patient continues to feel better, not vomiting. Patient will be p.o. challenged, if she tolerates p.o., she can be discharged. Sign-out given to Dr. Banks [facility] - Abdominal Pain Lab Data Result diagrams: 10/30/20 03:18 10/30/20 03:18 Labs: Lab Results 10/30/20 10/30/20 10/30/20 Range/Units 03:18 03:18 03:18 WBC 18.0 H (4.8-10.8) X10*3/uL RBC 5.16 (4.20-5.50) X10*6/uL Hgb 14.1 (12.0-16.0) g/dl Hct 42.7 (37-47) % MCV 82.8 (80-98) fL MCH 27.3 (27.0-33.0) pg MCHC 33.0 (31.0-35.0) g/dl RDW 13.1 (11.0-16.0) % Plt Count 324 (160-400) X10*3/uL MPV 10.1 (9.4-12.3) fL Immature Gran % (Auto) 0.6 H (0.0-0.4) % Neut % (Auto) 86.9 H (45-73) % Lymph % (Auto) 9.6 L (20-40) % [place] % (Auto) 2.6 (2-11) % Eos % (Auto) 0.1 (0-4) % Baso % (Auto) 0.2 (0-2) % Lymph # (Auto) 1.7 (1.2-4.9) X10*3/uL [place] # (Auto) 0.5 (0.1-1.2) X10*3/uL Eos # (Auto) 0.0 (0.0-0.4) X10*3/uL Baso # (Auto) 0.0 (0.0-0.2) X10*3/uL Abs Immat Gran (auto) 0.10 H (0.00-0.03) X10*3/uL Absolute Neuts (auto) 15.7 H (2.0-8.3) X10*3/uL Absolute Nucleated RBC 0.000 (0.0-0.012) X10*3/uL Nucleated RBC % (auto) 0.0 (0.0-0.2) /100WBC Sodium 140 (135-145) mmol/L Potassium 3.8 (3.3-5.1) mmol/L Chloride 107 (96-108) mmol/L Carbon Dioxide 21 L (22-29) mmol/L Anion Gap 16 (12-20) BUN 10 (9-16) mg/dL Creatinine 0.82 (0.5-1.4) mg/dL Estim Creat Clear Calc 108.2 Estimated GFR > 60 Random Glucose 168 H D (60-115) mg/dL Calcium 10.0 (8.4-10.2) mg/dL Total Bilirubin 0.7 (0.0-1.0) mg/dL AST 36 H (5-31) U/L ALT 64 H (0-31) U/L Alkaline Phosphatase 85 (39-117) U/L Total Protein 8.3 H (6.5-8.0) g/dL Albumin 4.5 (3.5-5.0) g/dL Lipase 26 (8-78) U/L COVID-19 (SHANTE) Negative (Negative) COVID-19 Clin Com See Note Discharge Plan Discharge Clinical Impression: Cyclical vomiting Patient Disposition: Home, Self-Care Instructions: Cyclic Vomiting Syndrome (ED) Additional Instructions: Please follow-up with your primary care physician tomorrow. If you have any worsening or new symptoms, please return to the emergency room or call 911 Prescriptions: New metoclopramide HCl [Reglan] 10 mg tablet 10 mg PO Q6H PRN (Reason: nausea and vomiting) Qty: 14 RF: 0 No Action ondansetron HCl [Zofran] 4 mg tablet 4 mg PO Q6H PRN (Reason: nause) Qty: 16 RF: 0 famotidine [Pepcid] 20 mg tablet 20 mg PO BID Qty: 20 RF: 0 ondansetron HCl [Zofran] 4 mg tablet 4 mg PO Q6H PRN (Reason: nausea and vomiting) Qty: 10 RF: 0 omeprazole 40 mg capsule,delayed release(DR/EC) 40 mg PO DAILY 30 Days Qty: 30 RF: 0 amitriptyline 10 mg tablet 10 mg PO BEDTIME RF: 0 albuterol sulfate 90 mcg/actuation HFA aerosol inhaler 2 puff inhalation Q6H PRNRF: 0 PMFSH Past Medical History Medical History Acid reflux Asthma Gastritis GERD (gastroesophageal reflux disease) Morbid obesity Surgical History No significant past surgical history Family History Family History (Updated 05/31/20 @ 13:14 by Randy Canales [place]) Mother No problems noted. Father No problems noted. Brother No problems noted. Brother No problems noted. Social History Social History (Updated 05/31/20 @ 13:14 by Randy Canales [facility]) Alcohol intake: never Advance Directives: No
[2020-10-30 06:23] VITALS: RESP 16
[2020-10-30 06:25] VITALS: RESP 16
== END 2020-10-30 08:53 | disposition home or self-care (01) ==
PROVIDERS: Emergency Provider Emergency Medicine
DX: R11.15 Cyclical vomiting syndrome unrelated to migraine (principal); R10.9 Unspecified abdominal pain; Z79.899 Other long term (current) drug therapy; Z20.822 Contact with and (suspected) exposure to COVID-19
CPT/HCPCS: 36415; 80053; 83690; 85025; 87635; 96361; 96372; 96374; 96375; 99284; J1200; J1885; J2060; J2405

== ENCOUNTER 2020-11-05 04:35 | Inpatient (IN) | payer MEDICAID, SELFPAY ==
[2020-11-05] VITALS (7 sets, daily range): BP systolic 111–174; BP diastolic 65–95; PULSE 57–97; RESP 16–20; TEMP 35.9–36.6; O2SAT 95–98; BMI 36.6
--- NOTE | 2020-11-05 | ECG_ITS ---
Test Reason : GENERAL MEDICAL Blood Pressure : / mmHG Vent. Rate : 063 BPM Atrial Rate : 063 BPM P-R Int : 122 ms QRS Dur : 074 ms QT Int : 412 ms P-R-T Axes : 038 040 019 degrees QTc Int : 421 ms Normal sinus rhythm with sinus arrhythmia Normal ECG No previous ECGs available Referred By: Leigh Ann Osorio Electronically Signed By:DANNY MYERS
--- NOTE | ~2020-11-05 | CT_ITS ---
EXAMINATION: CT ABDOMEN AND PELVIS WITHOUT CONTRAST CLINICAL INFORMATION: Abdominal pain COMPARISON: October 05, 2020 and February 22, 2020 TECHNIQUE: Multidetector volumetric imaging was performed from the superior aspect of the liver through the pubic symphysis. Sagittal and coronal reformatted images were obtained on the technologist's workstation. This CT examination was performed using dose optimization techniques as appropriate, variously including the following: *Automated exposure control *Adjustment of mA and/or kV according to patient size (this includes techniques or standardized protocols for targeted exams where dose is matched to indication/reason for exam; i.e. extremities or head) *Use of iterative reconstruction technique DLP: 736.26 mGy-cm FINDINGS: LUNG BASES: The visualized lung bases are unremarkable. No pleural or pericardial effusion. LIVER, GALLBLADDER, AND BILIARY TREE: There is diffuse fatty infiltration of the liver with mild hepatomegaly of approximately 20 cm in vertical length. No focal mass or intrahepatic bile duct dilatation is seen. The gallbladder is unremarkable with no evidence of radiopaque gallstones, gallbladder wall thickening, or obvious pericholecystic inflammatory changes. PANCREAS: Unremarkable. SPLEEN: Unremarkable. ADRENAL GLANDS: Unremarkable. KIDNEYS AND URETERS: The kidneys are normal in size, shape, and attenuation. No hydronephrosis, hydroureter, or calculi seen. No perinephric stranding. BLADDER: Unremarkable. GASTROINTESTINAL TRACT: No dilated loops of large or small bowel. No free air or free fluid. No pericolonic inflammatory change. The appendix appears unremarkable. ABDOMINAL WALL: No significant hernia is appreciated. LYMPH NODES: There are some prominent inguinal lymph nodes seen bilaterally. No intraperitoneal lymphadenopathy is appreciated. VASCULAR: Unremarkable. PELVIC VISCERA: No suspicious mass identified. There is a 3.2 x 2.2 cm left adnexal cyst. OSSEOUS STRUCTURES: No destructive bony lesions identified. There is spina bifida occulta at L5. There is degenerative disc disease seen at the L4-L5 level. CT/CT abdomen pelvis wo con IMPRESSION: Diffuse fatty infiltration of the liver with mild hepatomegaly. No evidence of obstructive uropathy, ileus, or bowel obstruction. Left ovarian cyst.
--- NOTE | 2020-11-05 05:19 | ED_ITS ---
HPI - Nausea/Vomiting/Diarrhea General Chief complaint: Nausea/Vomiting/Diarrhea Stated complaint: abd pain/vomiting Time Seen by Provider: 11/05/20 05:04 Source: patient Mode of arrival: ambulatory History of Present Illness HPI Narrative: 30-year-old female who presents with onset of nausea and vomiting for 2 hours with episode fever, chills, urinary pain/burning/frequency, and patient denies obstipation and states her last bowel movement was yesterday. Related Data Home Medications Medication Instructions Recorded Confirmed amitriptyline 10 mg tablet 10 mg PO BEDTIME 05/31/20 06/09/20 albuterol sulfate 90 mcg/actuation 2 puff INHALATION Q6H PRN 06/09/20 06/09/20 aerosol inhaler Previous Rx's Medication Instructions Recorded omeprazole 40 mg capsule,delayed 40 mg PO DAILY 30 Days #30 cap 02/23/20 release ondansetron HCl 4 mg tablet 4 mg PO Q6H PRN #10 tab 02/23/20 (Zofran) famotidine 20 mg tablet (Pepcid) 20 mg PO BID #20 tab 10/05/20 ondansetron HCl 4 mg tablet 4 mg PO Q6H PRN #16 tab 10/05/20 (Zofran) metoclopramide HCl 10 mg tablet 10 mg PO Q6H PRN #14 tab 10/30/20 (Reglan) ondansetron HCl 4 mg tablet 4 mg PO Q8H PRN #7 tab 11/05/20 (Zofran) Allergies Allergy/AdvReac Type Severity Reaction Status Date / Time No Known Allergies Allergy Verified 10/30/20 02:32 Review of Systems Review of Systems: Pertinent positives and negatives as stated in HPI 10 point review of systems is otherwise negative. [facility] Past Medical History Source: nursing notes reviewed Medical History Acid reflux Asthma Gastritis GERD (gastroesophageal reflux disease) Morbid obesity Surgical History No significant past surgical history Family History Family History Mother No problems noted. Father No problems noted. Brother No problems noted. Brother No problems noted. Social History Social History Alcohol intake: never Advance Directives: No Advance Directives Information Provided: No Physical Exam Vital Signs: Vital Signs: Last Vital Signs Temp 97.9 F 11/05/20 07:24 Pulse 57 11/05/20 07:24 Resp 20 11/05/20 07:24 BP 174/80 H 11/05/20 07:24 Pulse Ox 95 11/05/20 07:24 Body Mass Index 36.6 VITAL SIGNS: Reviewed. GENERAL: Well developed, well nourished, in no acute distress. HEAD: Normocephalic/atraumatic EYES: PERRLA, EOMI OROPHARYNX: no oral lesions noted, posterior pharynx clear LUNGS: Normal breath sounds. No adventitious sounds or accessory muscle use. SpO2<95> CARDIOVASCULAR: Regular rate and rhythm without noted murmurs ABDOMEN: Obese, Soft, tender in epigastrium without guarding/rebound, non-dis tended with bowel sounds. SKIN: Inspection of the skin reveals no rashes NEUROLOGIC: Alert and oriented x 4. Strength and sensation to light touch were grossly intact x 4. Course Course Course Narrative: 30-year-old female with history and clinical presentation consistent with cyclical vomiting and low clinical suspicion for obstruction or infection. Patient provided with IV fluids, Reglan, Benadryl, Zofran, Ativan as well as obtaining basic lab work. Review of all investigations are consistent with patient's prior presentations. Patient is now resting comfortably and when she awakens she will undergo an p.o. trial be discharged home in stable condition. Signed out to Dr. Spicer. [facility] - Nausea/Vomiting/Diarrhea Lab Data Result diagrams: 11/05/20 05:27 11/05/20 05:27 Labs: Lab Results 11/05/20 11/05/20 Range/Units 05:27 05:27 WBC 18.6 H (4.8-10.8) X10*3/uL RBC 4.87 (4.20-5.50) X10*6/uL Hgb 13.7 (12.0-16.0) g/dl Hct 40.9 (37-47) % MCV 84.0 (80-98) fL MCH 28.1 (27.0-33.0) pg MCHC 33.5 (31.0-35.0) g/dl RDW 13.2 (11.0-16.0) % Plt Count 285 (160-400) X10*3/uL MPV 9.9 (9.4-12.3) fL Immature Gran % (Auto) 0.9 H (0.0-0.4) % Neut % (Auto) 79.3 H (45-73) % Lymph % (Auto) 13.7 L (20-40) % Gem % (Auto) 5.5 (2-11) % Eos % (Auto) 0.4 (0-4) % Baso % (Auto) 0.2 (0-2) % Lymph # (Auto) 2.5 (1.2-4.9) X10*3/uL Gem # (Auto) 1.0 (0.1-1.2) X10*3/uL Eos # (Auto) 0.1 (0.0-0.4) X10*3/uL Baso # (Auto) 0.0 (0.0-0.2) X10*3/uL Abs Immat Gran (auto) 0.16 H (0.00-0.03) X10*3/uL Absolute Neuts (auto) 14.7 H (2.0-8.3) X10*3/uL Absolute Nucleated RBC 0.000 (0.0-0.012) X10*3/uL Nucleated RBC % (auto) 0.0 (0.0-0.2) /100WBC Sodium 139 (135-145) mmol/L Potassium 4.0 (3.3-5.1) mmol/L Chloride 108 (96-108) mmol/L Carbon Dioxide 20 L (22-29) mmol/L Anion Gap 15 (12-20) BUN 8 L (9-16) mg/dL Creatinine 0.72 (0.5-1.4) mg/dL Estim Creat Clear Calc 120.7 Estimated GFR > 60 Random Glucose 144 H (60-115) mg/dL Calcium 9.3 D (8.4-10.2) mg/dL Total Bilirubin 0.4 (0.0-1.0) mg/dL AST 26 (5-31) U/L ALT 48 H (0-31) U/L Alkaline Phosphatase 88 (39-117) U/L Total Protein 7.5 (6.5-8.0) g/dL Albumin 4.2 (3.5-5.0) g/dL Discharge Plan Discharge Clinical Impression: Cyclical vomiting Patient Disposition: Home, Self-Care Instructions: Cyclic Vomiting Syndrome (ED) Additional Instructions: 1. Continue to stay well hydrated especially with water. 2. A prescription for Zofran has been sent to your pharmacy. 3. Follow-up with your primary care provider in the next 1-2 days for re- evaluation. Return to the ER for acute worsening of symptoms. Prescriptions: New ondansetron HCl [Zofran] 4 mg tablet 4 mg PO Q8H PRN (Reason: nausea and vomiting) Qty: 7 RF: 0 No Action ondansetron HCl [Zofran] 4 mg tablet 4 mg PO Q6H PRN (Reason: nause) Qty: 16 RF: 0 famotidine [Pepcid] 20 mg tablet 20 mg PO BID Qty: 20 RF: 0 metoclopramide HCl [Reglan] 10 mg tablet 10 mg PO Q6H PRN (Reason: nausea and vomiting) Qty: 14 RF: 0 ondansetron HCl [Zofran] 4 mg tablet 4 mg PO Q6H PRN (Reason: nausea and vomiting) Qty: 10 RF: 0 omeprazole 40 mg capsule,delayed release(DR/EC) 40 mg PO DAILY 30 Days Qty: 30 RF: 0 amitriptyline 10 mg tablet 10 mg PO BEDTIME RF: 0 albuterol sulfate 90 mcg/actuation HFA aerosol inhaler 2 puff inhalation Q6H PRNRF: 0 Referrals: [facility] [Primary Care Provider] - 2 days
[2020-11-05 05:32] LABS: MANUAL DIFF FLAG NO
[2020-11-05 05:33] LABS: Basophils Percent Auto 0.2 % (0-2); Eosinophils Absolute Auto 0.1 X10*3/uL (0.0-0.4); Eosinophils Percent Auto 0.4 % (0-4); Hematocrit 40.9 % (37-47); Hemoglobin 13.7 g/dl (12.0-16.0); Imm Gran Abs Auto 0.16 X10*3/uL (0.00-0.03); Imm Gran Pct Auto 0.9 % (0.0-0.4); Lymphocytes Absolute Auto 2.5 X10*3/uL (1.2-4.9); Lymphocytes Percent Auto 13.7 % (20-40); Mean Corpuscular HGB Conc 33.5 g/dl (31.0-35.0); Mean Corpuscular Hemoglobin 28.1 pg (27.0-33.0); Mean Platelet Volume 9.9 fL (9.4-12.3); Monocytes Percent Auto 5.5 % (2-11); Neutrophils Absolute Auto 14.7 X10*3/uL (2.0-8.3); Neutrophils Percent Auto 79.3 % (45-73); Platelet Count 285 X10*3/uL (160-400); Red Blood Count 4.87 X10*6/uL (4.20-5.50); Red Cell Distribution Width 13.2 % (11.0-16.0); White Blood Count 18.6 X10*3/uL (4.8-10.8)
[2020-11-05] MEDS: ondansetron HCL 4 MG/2 ML VIAL IVPUSH ×2 (05:35→14:43)
[2020-11-05] MEDS: 0.9 % Sodium Chloride 1,000 ML 999 ML IV (05:35)
[2020-11-05] MEDS: diphenhydrAMINE HCL 50 MG/ML VIAL 25 MG IVPUSH (05:35)
[2020-11-05] MEDS: Metoclopramide HCl 10 MG/2 ML VIAL IVPUSH (05:35)
[2020-11-05 06:04] LABS: Alanine Aminotransferase 48 U/L (0-31); Albumin Level 4.2 g/dL (3.5-5.0); Alkaline Phosphatase 88 U/L (39-117); Anion Gap 15 (12-20); Aspartate Amino Transferase 26 U/L (5-31); Bilirubin Total 0.4 mg/dL (0.0-1.0); Blood Urea Nitrogen 8 mg/dL (9-16); Calcium 9.3 mg/dL (8.4-10.2); Carbon Dioxide 20 mmol/L (22-29); Chloride 108 mmol/L (96-108); Creatinine Clr Calc Pharmacy 120.7; Estimated Glomerular Filt Rate > 60; Glucose Random 144 mg/dL (60-115); Sodium 139 mmol/L (135-145); Total Protein 7.5 g/dL (6.5-8.0)
--- NOTE | 2020-11-05 06:06 | PC.NURSE ---
PT IS CONSTANTLY YELLING OUT IM IN PAIN, THOSE MEDS DIDN'T HELP ME AT ALL . MD AWARE. WILL CONTINUE TO MONITOR PT.
[2020-11-05] MEDS: LORazepam 2 MG/ML VIAL 1 MG IVPUSH ×2 (07:18→10:20)
--- NOTE | 2020-11-05 07:30 | PC.NURSE ---
Pt alert and oriented. 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 Pt has iv fluid infusing, med given as document. Pt resting quietly after med. Will continue to monitor.
[2020-11-05 09:25] LABS: HCG Quantitative < 2 mIU/mL
[2020-11-05] MEDS: Morphine Sulfate 4 MG/ML CARTRIDGE IVPUSH (10:31)
[2020-11-05] MEDS: 0.9 % Sodium Chloride 1,000 ML 999 ML IVCONT (14:43)
--- NOTE | 2020-11-05 15:29 | PM.IMHP ---
History of Present Illness Date of Service: 11/05/20 Chief Complaint: Nausea and vomiting This is a 30-year-old female with history of hyperemesis syndrome who presents to the emergency department with complaints of abdominal pain, nausea, vomiting. Patient states around midnight she began having epigastric abdominal pain with associated nausea and vomiting. She denies any associated fever, chills. She has had an episode of diarrhea. She denies any recent travel. She has had similar episodes of nausea and vomiting in the past. In the emergency department her lab work was significant for leukocytosis of 18.6. She underwent CT scan of the abdomen which did not show any cause for her abdominal pain. It did show diffuse fatty infiltration of the liver with mild hepatomegaly. Patient denies any dysuria, hematuria. She received multiple doses of narcotics, antiemetics but continued to have abdominal pain, nausea, vomiting. She has been unable to keep down any liquids therefore the decision was made to admit her to the hospital for further management. Review of Systems Review of Systems: Yes all other systems are reviewed and are negative Constitutional: Constitutional: Denies chills and Denies fever(s) Cardiovascular: Cardiovascular: Denies chest pain Respiratory: Respiratory: Denies cough Gastrointestinal: Gastrointestinal: Reports abdominal pain, Reports nausea and Reports vomiting [facility] Medical History Acid reflux Asthma Gastritis GERD (gastroesophageal reflux disease) Morbid obesity Functional capacity: independent ambulation Family History Mother No problems noted. Father No problems noted. Brother No problems noted. Brother No problems noted. Surgical History No significant past surgical history Social History (Updated 11/05/20 @ 15:34 by CHRISTOPHER Murillo) Alcohol intake: never Patient Tobacco Use Status: Never used Tobacco Use of substances other than those prescribed or required for medical reasons: Yes Substance Use Type: Marijuana Substance Use Frequency: Daily Advance Directives: No Advance Directives Information Provided: No Meds Allergies Allergy/AdvReac Type Severity Reaction Status Date / Time No Known Allergies Allergy Verified 10/30/20 02:32 Active Medications: Current Medications Generic Name Dose Route Start Last Admin Trade Name Freq PRN Reason Stop Dose Admin Acetaminophen 650 mg 11/05/20 15:28 Acetaminophen 325 Mg Tablet PO Q6H PRN Pain, Mild (Pain Scale 1-3) Famotidine 20 mg 11/05/20 15:28 Famotidine/Pf 20 Mg/2 Ml Vial IVPUSH DAILY RIVAS Sodium Chloride 1,000 mls @ 999 mls/hr 11/05/20 14:45 11/05/20 14:43 Ns IVCONT 11/05/20 15:45 999 mls/hr .Q1H1M RIVAS Administration Dextrose/Sodium Chloride 1,000 mls @ 100 mls/hr 11/05/20 15:30 D5ns IVCONT .Q10H RIVAS Ketorolac Tromethamine 15 mg 11/05/20 15:28 Ketorolac Tromethamine 15 Mg/Ml Vial IVPUSH Q6H PRN Pain, Severe (Pain Scale 7-10) Lorazepam 0.5 mg 11/05/20 15:28 Lorazepam 2 Mg/Ml Vial IVPUSH Q6H PRN Anxiety Ondansetron HCl 4 mg 11/05/20 15:28 Ondansetron Hcl 4 Mg/2 Ml Vial IVPUSH Q8H PRN Nausea and Vomiting Pharmacy Consult 1 each 11/05/20 15:01 Consult Rx Perform Med Rec MISCELLANE ONCE PRN Consult order Home Medications Medication Instructions Recorded Confirmed Last Taken Type amitriptyline 10 mg tablet 10 mg PO BEDTIME 05/31/20 06/09/20 Unknown History albuterol sulfate 90 mcg/actuation 2 puff INHALATION Q6H PRN 06/09/20 06/09/20 Unknown History aerosol inhaler Physical Exam Vital Signs and Narrative: Vital Signs: Last Vital Signs Temp 97.9 F 11/05/20 07:24 Pulse 57 11/05/20 07:24 Resp 20 11/05/20 07:24 BP 174/80 H 11/05/20 07:24 Pulse Ox 95 11/05/20 07:24 Body Mass Index 36.6 Const: Other: observed writhing around in bed, moaning; frequently requesting pain medication Nutritional Appearance: well nourished Orientation/consciousness: patient oriented x3 HENMT: Head: Yes normocephalic and Yes atraumatic Eyes: Sclerae: sclerae normal Chest: Chest palpation & inspection: normal inspection of the chest Resp: Effort & Inspection: normal respiratory effort and no respiratory distress Cardio: Rate: regular rate Rhythm: regular rhythm GI: Other: Abdomen is soft, nondistended, positive bowel sounds, mild tenderness to palpation in the epigastric region Neuro: General: patient oriented x3 Cranial nerves: Yes CN's II-XII intact bilaterally and Yes Bilaterally intact EOM present Results Labs CBC and Chem 7: 11/05/20 05:27 11/05/20 05:27 Labs: Laboratory Results - last 24 hr 11/05/20 11/05/20 05:27 05:27 MCV 84.0 MCH 28.1 MCHC 33.5 RDW 13.2 Plt Count 285 MPV 9.9 Immature Gran % (Auto) 0.9 H Neut % (Auto) 79.3 H Lymph % (Auto) 13.7 L [place] % (Auto) 5.5 Eos % (Auto) 0.4 Baso % (Auto) 0.2 Lymph # (Auto) 2.5 [place] # (Auto) 1.0 Eos # (Auto) 0.1 Baso # (Auto) 0.0 Abs Immat Gran (auto) 0.16 H Absolute Neuts (auto) 14.7 H Absolute Nucleated RBC 0.000 Nucleated RBC % (auto) 0.0 Anion Gap 15 Estim Creat Clear Calc 120.7 Estimated GFR > 60 Random Glucose 144 H Calcium 9.3 D Total Bilirubin 0.4 AST 26 ALT 48 H Alkaline Phosphatase 88 Total Protein 7.5 Albumin 4.2 Beta HCG, Quant < 2 Imaging Radiologist's Impressions: Impressions Abdomen/Pelvis CT 11/05/20 09:47 IMPRESSION: Diffuse fatty infiltration of the liver with mild hepatomegaly. No evidence of obstructive uropathy, ileus, or bowel obstruction. Left ovarian cyst. 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 CT scan of the abdomen with no acute changes Patient admits to daily marijuana use. Symptoms seem consistent with marijuana hyperemesis Tox screen pending -IV fluid, antiemetics, IV pepcid, pain control -clear liquid diet, advanced as tolerated -monitor electrolytes Leukocytosis Likely reactive No obvious source of infection identified -follow CBC Hypertension In the setting of acute nausea vomiting. No history of hypertension Monitor blood pressure closely Mild transaminitis Chronic. Likely related to fatty liver disease. Fatty infiltration seen on CT scan Obesity BMI 36.6 Med reconciliation pending at the time of admission DVT prophylaxis-mechanical devices Code status-full code Attending physician-Dr. Wilson Quality Stroke Does the patient have a stroke diagnosis?: No VTE Prior VTE?: No VTE Risk Level:: Medical - moderate - high VTE Device Contraindication: N/A - Device Ordered VTE Drug Contraindication: N/A - Med Ordered
[2020-11-05 15:31] LABS: COVID-19 Test Negative (Negative); IDNOW Serial# 9DD0AD1C
[2020-11-05] MEDS: Famotidine/PF 20 MG/2 ML VIAL IVPUSH (15:41)
--- NOTE | 2020-11-05 16:06 | PM.EVENT ---
Event Note Date of Service: 11/05/20 Event Note: the patient was seen and evaluated with CHRISTOPHER Sue. I agree with her note, assessment and plan with the following. In summary, a 30 years old lady with history of GERD, obesity, asthma, gastritis who presented to the hospital with reported abdominal pain nausea and vomiting. Having symptoms for almost today now with no reported fever, chills or diarrhea. She reported smoking marijuana. She was unable to keep anything down since last night. Workup in the emergency showed elevated WBCs fatty liver. Intractable nausea and vomiting Abdominal pain Could be secondary to gastroenteritis, food poisoning or CVS Tox screen Zofran as needed, D5 water, Pepcid Stool studies Advanced diet as tolerated Rest of evaluations by PA note.
[2020-11-05 16:15] LABS: Glucose Urine UA NEG (NEG); Leukocyte Esterase Urine NEG (NEG); Nitrite Urine NEG (NEG); Specific Gravity - Urine 1.015 (1.005-1.025); UACC Culture Trigger NO; Urine Blood TRACE (NEG); Urine Ketones 5 MG/DL (NEG); Urine Protein NEG (NEG-TRACE)
[2020-11-05 16:18] LABS: Appearance Urine HAZY; Color Urine YELLOW; UPreg QC Valid YES; Urine Pregnancy NEGATIVE (NEGATIVE)
[2020-11-05 16:24] LABS: Squamous Epithelial Cell Urine 4+ /LPF
[2020-11-05] MEDS: LORazepam 2 MG/ML VIAL 0.5 MG IVPUSH (18:06)
[2020-11-05] MEDS: 0.9 % Sodium Chloride Flush 3 ML SYRINGE IVFLUSH (18:07)
[2020-11-05] MEDS: Dextrose 5 % and 0.9 % NaCl 1,000 ML 100 ML IVCONT (18:37)
[2020-11-05] MEDS: Enoxaparin Sodium 40 MG/0.4 ML SYRINGE SUBCUT (20:19)
[2020-11-06] VITALS (8 sets, daily range): BP systolic 117–141; BP diastolic 59–76; PULSE 53–73; RESP 16–18; TEMP 36–36.8; O2SAT 95–99
[2020-11-06] MEDS: ondansetron HCL 4 MG/2 ML VIAL IVPUSH ×3 (02:06→22:34)
[2020-11-06] MEDS: Ketorolac Tromethamine 15 MG/ML VIAL IVPUSH ×3 (02:06→22:27)
[2020-11-06] MEDS: LORazepam 2 MG/ML VIAL 0.5 MG IVPUSH ×3 (02:07→22:27)
[2020-11-06] MEDS: Dextrose 5 % and 0.9 % NaCl 1,000 ML 100 ML IVCONT ×2 (02:09→17:43)
[2020-11-06 05:10] LABS: Hematocrit 45.1 % (37-47); Hemoglobin 14.4 g/dl (12.0-16.0); Mean Corpuscular HGB Conc 31.9 g/dl (31.0-35.0); Mean Corpuscular Hemoglobin 27.7 pg (27.0-33.0); Mean Corpuscular Volume 86.7 fL (80-98); Platelet Count 292 X10*3/uL (160-400); Red Cell Distribution Width 13.5 % (11.0-16.0)
[2020-11-06 05:37] LABS: Anion Gap 13 (12-20); Blood Urea Nitrogen 8 mg/dL (9-16); Calcium 9.1 mg/dL (8.4-10.2); Carbon Dioxide 24 mmol/L (22-29); Chloride 106 mmol/L (96-108); Creatinine Clr Calc Pharmacy 114.3; Estimated Glomerular Filt Rate > 60; Glucose Random 104 mg/dL (60-115); Potassium 3.6 mmol/L (3.3-5.1); Sodium 139 mmol/L (135-145)
[2020-11-06] MEDS: Famotidine/PF 20 MG/2 ML VIAL IVPUSH (08:12)
[2020-11-06] MEDS: 0.9 % Sodium Chloride Flush 3 ML SYRINGE IVFLUSH ×2 (08:12→17:43)
--- NOTE | 2020-11-06 12:07 | PM.GICN ---
History of Present Illness Data of Consult Service Date: 11/06/20 Requesting physician: Carolyn Pritchard Primary Care Provider: [facility] Reason for consult: nausea, vomiting ?30-year-old female with history of GERD, asthma, obesity who I am seeing for assessment for nausea, vomiting and abdominal pain. She had sudden onset severe epigastric abdominal pain 10/10, well localized without radiaiton yesterday associated with non blood y emesis, and nausea. she had one episode of diarrhea without blood. She also felt her abdomen was distended and uncomfortable. showers help reduce sx. She gets similar attacks every few months, still uses THC intermittently but not every day. Also gets migraine which are controlled by 25 mg amitriptiline. No recent travel or sick contqc, denies taking nsaids or narcotics. She had smoked THC just at the onset of this attack and felt it was making her feel better lab work was significant for leukocytosis of 18.6.? She underwent CT scan of the abdomen which did not show any cause for her abdominal pain. Review of Systems Review of Systems: Follow up abdominal pain and vomiting still with epigastric pain and vomiting Yes all other systems are reviewed and are negative Constitutional: Constitutional: Denies chills and Denies fever(s) Eyes: Eyes: Reports no additional eye complaints Cardiovascular: Cardiovascular: Denies chest pain Respiratory: Respiratory: Denies cough Gastrointestinal: Gastrointestinal: Reports abdominal pain, Reports nausea and Reports vomiting Endocrine: Endocrine: Reports no additional endocrine complaints Hematologic/Lymphatic: Hematologic/Lymphatic: Reports no additional hematologic/lymphatic complaints Allergic/Immunologic: Allergic/Immunologic: Reports no additional allergic/immunologic complaints [facility] Past Medical History Medical History Acid reflux Asthma Gastritis GERD (gastroesophageal reflux disease) Morbid obesity Functional capacity: independent ambulation Family History Family History Mother No problems noted. Father No problems noted. Brother No problems noted. Brother No problems noted. Surgical History Surgical History No significant past surgical history Social History Social History (Updated 11/05/20 @ 15:34 by CHRISTOPHER Murillo) Household Members: Other Household Members Other:: mother Housing: Apartment Do you presently have visiting nurse or other home services: No Alcohol intake: never Patient Tobacco Use Status: Never used Tobacco Use of substances other than those prescribed or required for medical reasons: Yes Substance Use Type: Marijuana Substance Use Frequency: Daily Last Used Substance: Hours (ago) Currently Displaying Signs/Symptoms of Drug Intoxication Withdrawal: No Any prior treatment program specific to substance use: No Have you been hit, kicked, punched, or otherwise hurt by someone within the past year? If so, by whom?: No Do you feel safe in your current relationship?: Yes Is there a partner from a previous relationship who is making you feel unsafe now?: No Are you made to feel afraid or neglected: No Advance Directives: No Advance Directives Information Provided: No Do you have thoughts of harming others: None Do you have a plan to hurt others: No Plan Recently lost weight without trying: No Patient : No : No Poor oral hygiene: No service: No Current occupational status: employed Meds Allergies Allergy/AdvReac Type Severity Reaction Status Date / Time No Known Allergies Allergy Verified 10/30/20 02:32 Active Medications: Current Medications Generic Name Dose Route Start Last Admin Trade Name Freq PRN Reason Stop Dose Admin Acetaminophen 650 mg 11/05/20 15:28 Acetaminophen 325 Mg Tablet PO Q6H PRN Pain, Mild (Pain Scale 1-3) Enoxaparin Sodium 40 mg 11/05/20 20:00 11/05/20 20:19 Enoxaparin Sodium 40 Mg/0.4 Ml Syringe SUBCUT 40 mg Q24H RIVAS Administration Famotidine 20 mg 11/05/20 15:28 11/06/20 08:12 Famotidine/Pf 20 Mg/2 Ml Vial IVPUSH 20 mg DAILY RIVAS Administration Dextrose/Sodium Chloride 1,000 mls @ 100 mls/hr 11/05/20 15:30 11/06/20 08:14 D5ns IVCONT 0 mls/hr .Q10H RIVAS Infusion Ketorolac Tromethamine 15 mg 11/05/20 15:28 11/06/20 09:40 Ketorolac Tromethamine 15 Mg/Ml Vial IVPUSH 15 mg Q6H PRN Administration Pain, Severe (Pain Scale 7-10) Lorazepam 0.5 mg 11/05/20 15:28 11/06/20 02:07 Lorazepam 2 Mg/Ml Vial IVPUSH 0.5 mg Q6H PRN Administration Anxiety Melatonin 3 mg 11/05/20 17:12 Melatonin 3 Mg Tablet PO BEDTIME PRN Insomnia Ondansetron HCl 4 mg 11/05/20 15:28 11/06/20 09:39 Ondansetron Hcl 4 Mg/2 Ml Vial IVPUSH 4 mg Q8H PRN Administration Nausea and Vomiting Pharmacy Consult 1 each 11/05/20 15:01 Consult Rx Perform Med Rec MISCELLANE ONCE PRN Consult order Sodium Chloride 3 ml 11/05/20 17:12 11/06/20 08:12 0.9 % Sodium Chloride Flush 3 Ml Syringe IVFLUSH 3 ml QSHIFT RIVAS Administration Home Medications Medication Instructions Recorded Confirmed Last Taken Type amitriptyline 10 mg tablet 10 mg PO BEDTIME 05/31/20 11/05/20 Unknown History albuterol sulfate 90 mcg/actuation 2 puff INHALATION Q6H PRN 06/09/20 11/05/20 Unknown History aerosol inhaler Physical Exam Vital Signs: Vital Signs: Last Vital Signs Temp 96.8 F 11/06/20 07:43 Pulse 61 11/06/20 07:43 Resp 17 11/06/20 07:43 BP 126/59 L 11/06/20 07:43 Pulse Ox 99 11/06/20 07:43 Body Mass Index 36.6 Const: General: awake and tired appearing Nutritional Appearance: well nourished Orientation/consciousness: patient oriented x3 HENMT: Head: Yes normocephalic and Yes atraumatic Eyes: Sclerae: sclerae normal Chest: Chest palpation & inspection: normal inspection of the chest Resp: Effort & Inspection: normal respiratory effort and no respiratory distress Cardio: Rate: regular rate Rhythm: regular rhythm GI: Other: Abdomen is soft, nondistended, positive bowel sounds, mild tenderness to palpation in the epigastric region Neuro: General: patient oriented x3 Cranial nerves: Yes CN's II-XII intact bilaterally and Yes Bilaterally intact EOM present Psych: Appearance: grossly normal Results Labs CBC & Chem 7: 11/06/20 04:54 11/06/20 04:54 Labs: Short CBC 11/06/20 Range/Units 04:54 WBC 18.0 H (4.8-10.8) X10*3/uL Hgb 14.4 (12.0-16.0) g/dl Hct 45.1 (37-47) % Plt Count 292 (160-400) X10*3/uL BMP 11/06/20 04:54 Sodium 139 Potassium 3.6 Chloride 106 Carbon Dioxide 24 BUN 8 L Creatinine 0.76 Calcium 9.1 Urine 11/05/20 Range/Units 15:57 Urine Color YELLOW Urine Appearance HAZY Urine pH 8.0 (5.0-8.0) Ur Specific [place] 1.015 (1.005-1.025) Urine Protein NEG (NEG-TRACE) MG/DL Urine Glucose (UA) NEG (NEG) MG/DL Assessment and Plan (1) Intractable nausea and vomiting: Status: Acute upper abdo pain, nausea and distention dd: cannaboid hyperemisis, cyclical vomiting syndrome, gastoparesis, esophagitis, gastric outlet obstruction. CT neg for any acute process, no bowel obstruction, preg test is neg, u tox pending. PLAN: 1/ EGD for further assessment as in ddx above 2/ if neg then GES 3/ If EGD/GES neg then trial of gabapentin, should avoid THC--explained rationale for this [id number]wwwwwwwwwwwwwwwwwwwwwwwwwwwwwwwwwwwwwwwwwwwwwwwwwwwwwwwwwwwwwwwwwwwwwwwwwwwwwwwwwwwwwwwwwwwwwwwwwwwwwwwwwwwwwwwwwwwwwwwwwwwwwwwwwwwwwwwwwwwwwwwwwwwwwwwwwwwwwwwwwwwwwwwwwwwwwwwwwwwwwwwwwwwwwwwwwwwwwwwwwwwwwwwwwww wwwwwwwwwwwwwwwwwwwwwwwwwwwwwwwwwwwwwwwwwwwwwwwwwwwwwwwwwwwwwwwwwwwwwwwwwwwwwwwwwwwwwwwwwwwwwwwwwwwwwwwwwwwwwwwwwwwwwwwwwwwwwwwwwwwwwwwwwwwwwwwwwwwwwwwwwwwwwwwwwwwwwwwwwwwwwwwwwwwwwwwwwwwwwwwwwwwwwwwwwwwwwwwwwwwwwwwwwwwwwwwwwwwwwwwwwwwwwwwwwwwwwwww Procedures Date of Service Date of Service: 11/06/20
[2020-11-06] MEDS: Metoclopramide HCl 10 MG/2 ML VIAL IVPUSH (12:18)
--- NOTE | 2020-11-06 12:28 | MHC.CM.PN ---
Addendum entered by Chuyita Laura 11/06/20 12:33: RADIOLOGY RESIDENT COMPLETED USING EMR PT CONTINUES TO BE IN THE SHOWER. PT APPEARS TO LIVE AT HOME WITH HER MOTHER AND IS INDEPENDENT WITH CARE AND MOBILITY. PT IS EMPLOYED AND HAS NO SERVICES OR DME. CURRENT DC PLAN IS HOME WITH NO SERVICES Original Note: CM HAS ATTEMPTED TO SEE PT TWICE TODAY. PT HAS BEEN IN THE SHOWER MOST OF DAY
--- NOTE | 2020-11-06 12:53 | P.PNIM_ITS ---
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 CT scan of the abdomen with no acute changes Patient admits to daily marijuana use.? Symptoms seem consistent with marijuana hyperemesis Tox screen pending -IV fluid, antiemetics, IV pepcid, pain control -clear liquid diet, advanced as tolerated -monitor electrolytes GI consult Leukocytosis, chronic Has been seen by Hematology in the past No obvious source of infection identified follow CBC Elevated blood pressure reading. Likely secondary to pain No history of hypertension Monitor blood pressure closely Mild transaminitis Chronic.? Likely related to fatty liver disease.? Fatty infiltration seen on CT scan Obesity BMI 36.6 DVT prophylaxis-mechanical devices Code status-full code Subjective Subjective Date of Service: 11/06/20 Review of Systems Follow up abdominal pain and vomiting still with epigastric pain and vomiting Physical Exam Vital Signs: Vital Signs: Last Vital Signs Temp 96.8 F 11/06/20 12:00 Pulse 69 11/06/20 12:00 Resp 18 11/06/20 12:00 BP 141/75 H 11/06/20 12:00 Pulse Ox 99 11/06/20 12:00 Body Mass Index 36.6 Appearing in no acute distress lung sounds are clear to auscultation heart regular rate rhythm, clear S1, S2 positive bowel sounds, abdomen is soft, tender to the epigatrum neuro patient is alert x3, no focal deficits Objective Data Current Medications Generic Name Dose Route Start Last Admin Trade Name Freq PRN Reason Stop Dose Admin Acetaminophen 650 mg 11/05/20 15:28 Acetaminophen 325 Mg Tablet PO Q6H PRN Pain, Mild (Pain Scale 1-3) Enoxaparin Sodium 40 mg 11/05/20 20:00 11/05/20 20:19 Enoxaparin Sodium 40 Mg/0.4 Ml Syringe SUBCUT 40 mg Q24H RIVAS Administration Famotidine 20 mg 11/05/20 15:28 11/06/20 08:12 Famotidine/Pf 20 Mg/2 Ml Vial IVPUSH 20 mg DAILY RIVAS Administration Dextrose/Sodium Chloride 1,000 mls @ 100 mls/hr 11/05/20 15:30 11/06/20 08:14 D5ns IVCONT 0 mls/hr .Q10H RIVAS Infusion Ketorolac Tromethamine 15 mg 11/05/20 15:28 11/06/20 09:40 Ketorolac Tromethamine 15 Mg/Ml Vial IVPUSH 15 mg Q6H PRN Administration Pain, Severe (Pain Scale 7-10) Lorazepam 0.5 mg 11/05/20 15:28 11/06/20 12:17 Lorazepam 2 Mg/Ml Vial IVPUSH 0.5 mg Q6H PRN Administration Anxiety Melatonin 3 mg 11/05/20 17:12 Melatonin 3 Mg Tablet PO BEDTIME PRN Insomnia Morphine Sulfate 2 mg 11/06/20 12:42 Morphine Sulfate 2 Mg/Ml Cartridge IVPUSH Q4H PRN pain Protocol Ondansetron HCl 4 mg 11/05/20 15:28 11/06/20 09:39 Ondansetron Hcl 4 Mg/2 Ml Vial IVPUSH 4 mg Q8H PRN Administration Nausea and Vomiting Pharmacy Consult 1 each 11/05/20 15:01 Consult Rx Perform Med Rec MISCELLANE ONCE PRN Consult order Sodium Chloride 3 ml 11/05/20 17:12 11/06/20 08:12 0.9 % Sodium Chloride Flush 3 Ml Syringe IVFLUSH 3 ml QSHIFT RIVAS Administration Labs CBC & Chem 7: 11/06/20 04:54 11/06/20 04:54 Labs: Laboratory Results - last 24 hr 11/05/20 11/05/20 11/05/20 15:10 15:57 15:57 MCV MCH MCHC RDW Plt Count MPV Absolute Nucleated RBC Nucleated RBC % (auto) Anion Gap Estim Creat Clear Calc Estimated GFR Random Glucose Calcium Urine Color YELLOW Urine Appearance HAZY Urine pH 8.0 Ur Specific [place] 1.015 Urine Protein NEG Urine Glucose (UA) NEG Urine Ketones 5 Urine Blood TRACE Urine Nitrite NEG Ur Leukocyte Esterase NEG Urine RBC 1-4 Urine WBC 1-4 Ur Squamous Epith Cells 4+ Urine Bacteria NONE Urine Test NEGATIVE COVID-19 ([facility]) Negative COVID-19 Clin Com See Note 11/06/20 11/06/20 04:54 04:54 MCV 86.7 MCH 27.7 MCHC 31.9 RDW 13.5 Plt Count 292 MPV 10.0 Absolute Nucleated RBC 0.000 Nucleated RBC % (auto) 0.0 Anion Gap 13 Estim Creat Clear Calc 114.3 Estimated GFR > 60 Random Glucose 104 Calcium 9.1 Urine Color Urine Appearance Urine pH Ur Specific [place] Urine Protein Urine Glucose (UA) Urine Ketones Urine Blood Urine Nitrite Ur Leukocyte Esterase Urine RBC Urine WBC Ur Squamous Epith Cells Urine Bacteria Urine Test COVID-19 ([facility]) COVID-19 Clin Com Quality Stroke Does the patient have a stroke diagnosis?: No VTE Prior VTE?: No VTE Risk Level:: Medical - moderate - high VTE Device Contraindication: N/A - Device Ordered VTE Drug Contraindication: N/A - Med Ordered
[2020-11-06] MEDS: Morphine Sulfate 2 MG/ML CARTRIDGE IVPUSH ×3 (13:09→22:27)
[2020-11-06] MEDS: Enoxaparin Sodium 40 MG/0.4 ML SYRINGE SUBCUT (20:05)
[2020-11-07 03:42] VITALS: RESP 16
[2020-11-07] MEDS: Morphine Sulfate 2 MG/ML CARTRIDGE IVPUSH (06:06)
[2020-11-07] MEDS: ondansetron HCL 4 MG/2 ML VIAL IVPUSH (06:06)
[2020-11-07] MEDS: Ketorolac Tromethamine 15 MG/ML VIAL IVPUSH (06:08)
[2020-11-07] MEDS: LORazepam 2 MG/ML VIAL 0.5 MG IVPUSH (06:10)
[2020-11-07] MEDS: Dextrose 5 % and 0.9 % NaCl 1,000 ML 100 ML IVCONT (06:14)
[2020-11-07 06:46] LABS: Alanine Aminotransferase 59 U/L (0-31); Albumin Level 3.7 g/dL (3.5-5.0); Alkaline Phosphatase 65 U/L (39-117); Anion Gap 8 (12-20); Aspartate Amino Transferase 37 U/L (5-31); Bilirubin Direct 0.2 mg/dL (0.0-0.5); Bilirubin Total 0.8 mg/dL (0.0-1.0); Blood Urea Nitrogen 9 mg/dL (9-16); Calcium 8.8 mg/dL (8.4-10.2); Carbon Dioxide 28 mmol/L (22-29); Chloride 106 mmol/L (96-108); Creatinine Clr Calc Pharmacy 122.4; Estimated Glomerular Filt Rate > 60; Glucose Random 99 mg/dL (60-115); Magnesium 2.4 mg/dL (1.6-2.6); Potassium 3.8 mmol/L (3.3-5.1); Sodium 138 mmol/L (135-145); Total Protein 6.9 g/dL (6.5-8.0)
[2020-11-07 07:23] VITALS: BP 145/71; PULSE 60; RESP 17; TEMP 36.1; O2SAT 99
[2020-11-07] MEDS: Famotidine/PF 20 MG/2 ML VIAL IVPUSH (07:38)
--- NOTE | 2020-11-07 10:30 | P.DS_ITS ---
DS: Providers Provider Date of Service: 11/07/20 Date of admission: 11/05/20 15:28 Primary care physician: [facility] Consults: 11/06/20 11:43 Consult to Gastroenterology Routine Consulting Provider: Delmar Pardo Reason for consultation: abd pain, vomiting Has provider been notified: No DS: Diagnosis Discharge Diagnosis (1) Intractable nausea and vomiting: Status: Acute DS: Medications Discharge Medications Home Medications: Home Medications Medication Instructions Recorded Confirmed amitriptyline 10 mg tablet 10 mg PO BEDTIME 05/31/20 11/05/20 albuterol sulfate 90 mcg/actuation 2 puff INHALATION Q6H PRN 06/09/20 11/05/20 aerosol inhaler Previous Rx's Medication Instructions Recorded omeprazole 40 mg capsule,delayed 40 mg PO DAILY 30 Days #30 cap 02/23/20 release ondansetron HCl 4 mg tablet 4 mg PO Q8H PRN #9 tab 11/07/20 (Zofran) DS: Summary Hospital Course Hospital Course: HP as per admitting provider This is a 30-year-old female with history of hyperemesis syndrome who presents to the emergency department with complaints of abdominal pain, nausea, vomiting.? Patient states around midnight she began having epigastric abdominal pain with associated nausea and vomiting.? She denies any associated fever, chills.? She has had an episode of diarrhea.? She denies any recent travel.? She has had similar episodes of nausea and vomiting in the past.? In the emergency department her lab work was significant for leukocytosis of 18.6.? She underwent CT scan of the abdomen which did not show any cause for her abdominal pain.? It did show diffuse fatty infiltration of the liver with mild hepatomegaly.? Patient denies any dysuria, hematuria.? She received multiple doses of narcotics, antiemetics but continued to have abdominal pain, nausea, vomiting.? She has been unable to keep down any liquids therefore the decision was made to admit her to the hospital for further management . Intractable nausea and vomiting. Multifactorial likely secondary to gastritis and marijuana cyclical vomiting syndrome. Treated with IV fluids, IV Pepcid, antiemetics and morphine. Patient was seen and evaluated by Gastroenterology. Can follow-up with gastroenterology for outpatient EGD. Feeling much better on day of discharge, diet advanced. Will be sent home with few days of oral antiemetics , continue PPI. Time Spent with Patient Time attestation: Total time spent providing and/or coordinating discharge services: Discharge coordination time: Greater than 30 minutes Quality: Stroke Does the patient have a stroke diagnosis?: No Physical Exam Vital Signs: Vital Signs: Last Vital Signs Temp 96.9 F 11/07/20 07:23 Pulse 60 11/07/20 07:23 Resp 17 11/07/20 07:23 BP 145/71 H 11/07/20 07:23 Pulse Ox 99 11/07/20 07:23 Body Mass Index 36.6 Appearing in no acute distress head is normocephalic atraumatic eyes pupils are PERRLA sclera is anicteric mouth throat mucous membranes are intact and moist neck is supple no lymphadenopathy, no JVD noted lung sounds are clear to auscultation heart regular rate rhythm, clear S1, S2 positive bowel sounds, abdomen is soft, nontender neuro patient is alert x3, no focal deficits DS: Data Data Completed and Pending Labs on day of discharge: Laboratory Results - last 24 hr 11/07/20 05:48 Sodium 138 Potassium 3.8 Chloride 106 Carbon Dioxide 28 Anion Gap 8 L BUN 9 Creatinine 0.71 Estim Creat Clear Calc 122.4 Estimated GFR > 60 Random Glucose 99 Calcium 8.8 Magnesium 2.4 Total Bilirubin 0.8 Direct Bilirubin 0.2 AST 37 H D ALT 59 H Alkaline Phosphatase 65 D Total Protein 6.9 Albumin 3.7 Discharge Plan Discharge Anticipated Discharge Date/Time: 11/07/20 10:18 Patient Disposition: Home, Self-Care Discharge Diagnosis: GASTRITIS CYCLICAL VOMITING Referrals: Delmar Pardo MD [Physician] - None (OUTPATIENT EGD ) Center[facility] [Primary Care Provider] - 2 days Discharge Medications: New ondansetron HCl [Zofran] 4 mg tablet 4 mg PO Q8H PRN (Reason: nausea and vomiting) Qty: 9 RF: 0 Continued omeprazole 40 mg capsule,delayed release(DR/EC) 40 mg PO DAILY 30 Days Qty: 30 RF: 0 amitriptyline 10 mg tablet 10 mg PO BEDTIME RF: 0 albuterol sulfate 90 mcg/actuation HFA aerosol inhaler 2 puff inhalation Q6H PRN (Reason: Bronchospasm) RF: 0 Discharge Orders: Discharge Order (Routine); Ordered 11/07/20 Ordered By: Alina Gorman Diet: advance to usual diet Activity on Discharge: As tolerated Stand Alone Forms: Patient Portal Discharge page Activity Restrictions/Additional Instructions: 1. Continue to stay well hydrated especially with water. 2. A prescription for Zofran has been sent to your pharmacy. 3. Follow-up with your primary care provider in the next 1-2 days for re- evaluation. Return to the ER for acute worsening of symptoms. Care Plan Goals: Complete resolution of symptoms Health Concerns: GASTRITIS CYCLICAL VOMITING Plan of Treatment: Follow up with you primary care provider as needed Assessment: See discharge summary Patient Instructions: Cyclic Vomiting Syndrome (ED)
--- NOTE | 2020-11-07 11:17 | MHC.CM.PN ---
PT DISCHARGING HOME SELF-CARE, PT WILL ARRANGE TRANSPORT.
[2020-11-07 11:22] VITALS: BP 138/84; PULSE 67; RESP 16; TEMP 36.2; O2SAT 100
[2020-11-07 15:27] VITALS: BP 130/76; PULSE 57; RESP 18; TEMP 36.3; O2SAT 99
== END 2020-11-07 16:09 | disposition home or self-care (01) | DRG 812 ==
LOC: HO.ED 08:44 → HO.EDOVER 15:36 → HO.S3 16:00
PROVIDERS: Nurse Practitioner Acute Care; Student in an Organized Health Care Education/Training Program; Admitting Provider Physician Assistant Medical; Emergency Provider Emergency Medicine; Visit Provider Family Medicine
DX: T40.7X1A Poisoning by cannabis (derivatives), accidental (unintentional), initial encounter (principal); K76.0 Fatty (change of) liver, not elsewhere classified; D72.829 Elevated white blood cell count, unspecified; K21.9 Gastro-esophageal reflux disease without esophagitis; K29.70 Gastritis, unspecified, without bleeding; E66.9 Obesity, unspecified; Z20.822 Contact with and (suspected) exposure to COVID-19; Z68.36 Body mass index [BMI] 36.0-36.9, adult; R11.10 Vomiting, unspecified; Y92.9 Unspecified place or not applicable; Z79.899 Other long term (current) drug therapy
CPT/HCPCS: 36415; 74176; 80048; 80053; 80076; 81001; 81025; 83735; 84702; 85025; 85027; 87635; 93005; 96361; 96365; 96374; 96375; 96376; 99218; 99285; J1200; J1650; J1885; J2060; J2270; J2405; J2550; J2765

== ENCOUNTER 2020-11-10 06:40 | Observation (INO) | payer MEDICAID, SELFPAY ==
[2020-11-10] VITALS (7 sets, daily range): BP systolic 109–176; BP diastolic 36–104; PULSE 58–92; RESP 16–19; TEMP 36.5–36.8; O2SAT 96–100; BMI 28.3
--- NOTE | 2020-11-10 07:06 | ECG_ITS ---
Test Reason : CP Blood Pressure : / mmHG Vent. Rate : 078 BPM Atrial Rate : 078 BPM P-R Int : 126 ms QRS Dur : 070 ms QT Int : 386 ms P-R-T Axes : 053 041 026 degrees QTc Int : 440 ms Normal sinus rhythm Normal ECG When compared with ECG of 05-NOV-2020 15:21, No significant change was found Referred By: Libia Dubon Electronically Signed By:DANNY MYERS
--- NOTE | 2020-11-10 07:10 | ED.GENADULT ---
HPI - General Adult General Chief complaint: Nausea/Vomiting/Diarrhea Stated complaint: stomach and back pain Time Seen by Provider: 11/10/20 07:04 Source: patient Mode of arrival: ambulatory History of Present Illness HPI narrative: 30-year-old female presents with persistent nausea and multiple episodes of nonbloody vomiting the patient states has continued since her discharge on 11/07. She states that there was supposed to be an EGD, but that was never completed. She denies smoking marijuana since her discharge, but states that she had smoked just prior to her presentation on the . She denies any associated fever, chills, urinary symptoms, diarrhea but is having central chest pain without palpitations. Related Data Home Medications Medication Instructions Recorded Confirmed amitriptyline 10 mg tablet 10 mg PO BEDTIME 05/31/20 11/05/20 albuterol sulfate 90 mcg/actuation 2 puff INHALATION Q6H PRN 06/09/20 11/05/20 aerosol inhaler Previous Rx's Medication Instructions Recorded omeprazole 40 mg capsule,delayed 40 mg PO DAILY 30 Days #30 cap 02/23/20 release ondansetron HCl 4 mg tablet 4 mg PO Q8H PRN #9 tab 11/07/20 (Zofran) Allergies Allergy/AdvReac Type Severity Reaction Status Date / Time No Known Allergies Allergy Verified 10/30/20 02:32 Review of Systems Review of Systems: Pertinent positives and negatives as stated in HPI 10 point review of systems is otherwise negative. [facility] Past Medical History Source: nursing notes reviewed Medical History Acid reflux Asthma Gastritis GERD (gastroesophageal reflux disease) Morbid obesity Surgical History No significant past surgical history Family History Family History Mother No problems noted. Father No problems noted. Brother No problems noted. Brother No problems noted. Social History Social History Household Members: Other Household Members Other:: mother Housing: Apartment Do you presently have visiting nurse or other home services: No Alcohol intake: never Patient Tobacco Use Status: Never used Tobacco Use of substances other than those prescribed or required for medical reasons: Yes Substance Use Type: Marijuana Advance Directives: No Advance Directives Information Provided: Yes service: No Current occupational status: employed Physical Exam Vital Signs: Vital Signs: Last Vital Signs Temp 97.7 F 11/10/20 07:11 Pulse 75 11/10/20 08:46 Resp 18 11/10/20 08:46 BP 150/104 H 11/10/20 08:46 Pulse Ox 100 11/10/20 08:46 Body Mass Index 28.3 VITAL SIGNS: Reviewed. GENERAL: Well developed, well nourished, in no acute distress. HEAD: Normocephalic/atraumatic, EYES: PERRLA, EOMI EARS: Ext canals without abnormality NOSE: Nares patent bilateral OROPHARYNX: no oral lesions noted, posterior pharynx clear NECK: Supple, no adenopathy LUNGS: Normal breath sounds. No adventitious sounds or accessory muscle use. SpO2<99>, auscultation over mid chest without noted ?rub?. CARDIOVASCULAR: Regular rate and rhythm without noted murmurs ABDOMEN: Obese, exam limited by body habitus, Soft, tenderness in epigastrium, non-distended with bowel sounds. MUSCULOSKELETAL: No tenderness, deformities, or effusions noted on gross inspection. EXTREMITIES: No cyanosis, clubbing or edema. SKIN: Inspection of the skin reveals no rashes NEUROLOGIC: Alert and oriented x 4. Strength and sensation to light touch were grossly intact x 4. Course Course Course Narrative: 30-year-old female with history and clinical presentation consistent with likely hyperemesis cannabis and now presenting with sequela of suspected esophagitis/gastritis without evidence bleed. Review of all investigations shows similar lab profile and no evidence to suggest upper GI bleed. Patient has had no relief from combination antiemetics and has refused Carafate/GI cocktail/and is still unable to tolerate p.o.. Patient will be provided with Haldol and admitted for intractable nausea and vomiting. Discussed case with inpatient hospitalist who accepts admission. Medical Decision Making Lab Data Result diagrams: 11/10/20 07:28 11/10/20 08:00 Labs: Lab Results 11/10/20 11/10/20 11/10/20 Range/Units 07:28 07:49 08:00 WBC 17.8 H (4.8-10.8) X10*3/uL RBC 5.13 (4.20-5.50) X10*6/uL Hgb 14.2 (12.0-16.0) g/dl Hct 43.1 (37-47) % MCV 84.0 (80-98) fL MCH 27.7 (27.0-33.0) pg MCHC 32.9 (31.0-35.0) g/dl RDW 13.0 (11.0-16.0) % Plt Count 288 (160-400) X10*3/uL MPV 10.1 (9.4-12.3) fL Immature Gran % (Auto) 0.6 H (0.0-0.4) % Neut % (Auto) 77.8 H (45-73) % Lymph % (Auto) 14.1 L (20-40) % [place] % (Auto) 6.6 (2-11) % Eos % (Auto) 0.7 (0-4) % Baso % (Auto) 0.2 (0-2) % Lymph # (Auto) 2.5 (1.2-4.9) X10*3/uL [place] # (Auto) 1.2 (0.1-1.2) X10*3/uL Eos # (Auto) 0.1 (0.0-0.4) X10*3/uL Baso # (Auto) 0.0 (0.0-0.2) X10*3/uL Abs Immat Gran (auto) 0.11 H (0.00-0.03) X10*3/uL Absolute Neuts (auto) 13.8 H (2.0-8.3) X10*3/uL Absolute Nucleated RBC 0.000 (0.0-0.012) X10*3/uL Nucleated RBC % (auto) 0.0 (0.0-0.2) /100WBC Sodium 136 (135-145) mmol/L Potassium 3.9 (3.3-5.1) mmol/L Chloride 107 (96-108) mmol/L Carbon Dioxide 19 L (22-29) mmol/L Anion Gap 14 (12-20) BUN 7 L (9-16) mg/dL Creatinine 0.65 (0.5-1.4) mg/dL Estim Creat Clear Calc 112.6 Estimated GFR > 60 Random Glucose 127 H (60-115) mg/dL Calcium 8.9 (8.4-10.2) mg/dL Total Bilirubin 0.4 (0.0-1.0) mg/dL AST 32 H (5-31) U/L ALT 68 H (0-31) U/L Alkaline Phosphatase 87 D (39-117) U/L Total Protein 7.6 (6.5-8.0) g/dL Albumin 4.2 (3.5-5.0) g/dL Urine Color Urine Appearance Urine pH (5.0-8.0) Ur Specific [place] (1.005-1.025) Urine Protein (NEG-TRACE) MG/DL Urine Glucose (UA) (NEG) MG/DL Urine Ketones (NEG) MG/DL Urine Blood (NEG) Urine Nitrite (NEG) Ur Leukocyte Esterase (NEG) Urine RBC (0) /HPF Urine WBC (0-4) /HPF Ur Squamous Epith Cells /LPF Amorphous Sediment /LPF Urine Bacteria /LPF Urine Test (NEGATIVE) COVID-19 ([facility]) Negative (Negative) COVID-19 Clin Com See Note 11/10/20 11/10/20 Range/Units 08:47 08:47 WBC (4.8-10.8) X10*3/uL RBC (4.20-5.50) X10*6/uL Hgb (12.0-16.0) g/dl Hct (37-47) % MCV (80-98) fL MCH (27.0-33.0) pg MCHC (31.0-35.0) g/dl RDW (11.0-16.0) % Plt Count (160-400) X10*3/uL MPV (9.4-12.3) fL Immature Gran % (Auto) (0.0-0.4) % Neut % (Auto) (45-73) % Lymph % (Auto) (20-40) % [place] % (Auto) (2-11) % Eos % (Auto) (0-4) % Baso % (Auto) (0-2) % Lymph # (Auto) (1.2-4.9) X10*3/uL [place] # (Auto) (0.1-1.2) X10*3/uL Eos # (Auto) (0.0-0.4) X10*3/uL Baso # (Auto) (0.0-0.2) X10*3/uL Abs Immat Gran (auto) (0.00-0.03) X10*3/uL Absolute Neuts (auto) (2.0-8.3) X10*3/uL Absolute Nucleated RBC (0.0-0.012) X10*3/uL Nucleated RBC % (auto) (0.0-0.2) /100WBC Sodium (135-145) mmol/L Potassium (3.3-5.1) mmol/L Chloride (96-108) mmol/L Carbon Dioxide (22-29) mmol/L Anion Gap (12-20) BUN (9-16) mg/dL Creatinine (0.5-1.4) mg/dL Estim Creat Clear Calc Estimated GFR Random Glucose (60-115) mg/dL Calcium (8.4-10.2) mg/dL Total Bilirubin (0.0-1.0) mg/dL AST (5-31) U/L ALT (0-31) U/L Alkaline Phosphatase (39-117) U/L Total Protein (6.5-8.0) g/dL Albumin (3.5-5.0) g/dL Urine Color YELLOW Urine Appearance HAZY Urine pH 6.5 (5.0-8.0) Ur Specific [place] 1.015 (1.005-1.025) Urine Protein NEG (NEG-TRACE) MG/DL Urine Glucose (UA) NEG (NEG) MG/DL Urine Ketones NEG (NEG) MG/DL Urine Blood 1+ H (NEG) Urine Nitrite NEG (NEG) Ur Leukocyte Esterase NEG (NEG) Urine RBC 1-4 (0) /HPF Urine WBC 0-2 (0-4) /HPF Ur Squamous Epith Cells 2+ /LPF Amorphous Sediment 1+ /LPF Urine Bacteria TRACE /LPF Urine Test NEGATIVE (NEGATIVE) COVID-19 ([facility]) (Negative) COVID-19 Clin Com ECG Data Attestation: I personally reviewed and interpreted this ECG as follows: Prior ECG tracings: available for review (11/05/2020 no acute changes on comparison) Interpretation: Normal sinus rhythm, HR-78, no STEMI, UT/QRS/QTC are within normal limits. Discharge Plan Discharge Clinical Impression: Cyclical vomiting, Intractable nausea and vomiting, Gastritis, Esophagitis Patient Disposition: Admitted As Inpatient Prescriptions: No Action ondansetron HCl [Zofran] 4 mg tablet 4 mg PO Q8H PRN (Reason: nausea and vomiting) Qty: 9 RF: 0 omeprazole 40 mg capsule,delayed release(DR/EC) 40 mg PO DAILY 30 Days Qty: 30 RF: 0 amitriptyline 10 mg tablet 10 mg PO BEDTIME RF: 0 albuterol sulfate 90 mcg/actuation HFA aerosol inhaler 2 puff inhalation Q6H PRN (Reason: Bronchospasm) RF: 0
[2020-11-10 07:33] LABS: MANUAL DIFF FLAG NO
[2020-11-10 07:36] LABS: Basophils Percent Auto 0.2 % (0-2); Eosinophils Absolute Auto 0.1 X10*3/uL (0.0-0.4); Eosinophils Percent Auto 0.7 % (0-4); Hematocrit 43.1 % (37-47); Hemoglobin 14.2 g/dl (12.0-16.0); Imm Gran Abs Auto 0.11 X10*3/uL (0.00-0.03); Imm Gran Pct Auto 0.6 % (0.0-0.4); Lymphocytes Absolute Auto 2.5 X10*3/uL (1.2-4.9); Lymphocytes Percent Auto 14.1 % (20-40); Mean Corpuscular HGB Conc 32.9 g/dl (31.0-35.0); Mean Corpuscular Hemoglobin 27.7 pg (27.0-33.0); Mean Platelet Volume 10.1 fL (9.4-12.3); Monocytes Absolute Auto 1.2 X10*3/uL (0.1-1.2); Monocytes Percent Auto 6.6 % (2-11); Neutrophils Absolute Auto 13.8 X10*3/uL (2.0-8.3); Neutrophils Percent Auto 77.8 % (45-73); Platelet Count 288 X10*3/uL (160-400); Red Blood Count 5.13 X10*6/uL (4.20-5.50); White Blood Count 17.8 X10*3/uL (4.8-10.8)
[2020-11-10] MEDS: 0.9 % Sodium Chloride 2,000 ML 999 ML IV (07:39)
[2020-11-10] MEDS: diphenhydrAMINE HCL 50 MG/ML VIAL 25 MG IVPUSH (07:39)
[2020-11-10] MEDS: LORazepam 2 MG/ML VIAL 1 MG IVPUSH (07:40)
[2020-11-10] MEDS: Metoclopramide HCl 10 MG/2 ML VIAL IVPUSH (07:40)
[2020-11-10] MEDS: ondansetron HCL 4 MG/2 ML VIAL IVPUSH ×2 (07:40→19:36)
[2020-11-10 08:16] LABS: COVID-19 Test Negative (Negative); IDNOW Serial# 9DD0AD1C
[2020-11-10 08:33] LABS: Alanine Aminotransferase 68 U/L (0-31); Albumin Level 4.2 g/dL (3.5-5.0); Alkaline Phosphatase 87 U/L (39-117); Anion Gap 14 (12-20); Aspartate Amino Transferase 32 U/L (5-31); Bilirubin Total 0.4 mg/dL (0.0-1.0); Blood Urea Nitrogen 7 mg/dL (9-16); Calcium 8.9 mg/dL (8.4-10.2); Carbon Dioxide 19 mmol/L (22-29); Chloride 107 mmol/L (96-108); Creatinine Clr Calc Pharmacy 112.6; Estimated Glomerular Filt Rate > 60; Glucose Random 127 mg/dL (60-115); Potassium 3.9 mmol/L (3.3-5.1); Sodium 136 mmol/L (135-145); Total Protein 7.6 g/dL (6.5-8.0)
[2020-11-10] MEDS: Magnesium Hydrox/Alum Hydrox 30 ML ORAL.SUSP PO (08:43)
[2020-11-10] MEDS: Lidocaine HCl Viscous 2 % 15 ML SOLUTION 10 ML MUCOUS MEM (08:43)
[2020-11-10 08:54] LABS: Glucose Urine UA NEG (NEG); Leukocyte Esterase Urine NEG (NEG); Nitrite Urine NEG (NEG); PH 6.5 (5.0-8.0); Specific Gravity - Urine 1.015 (1.005-1.025); UACC Culture Trigger NO; Urine Blood 1+ (NEG); Urine Ketones NEG (NEG); Urine Protein NEG (NEG-TRACE)
[2020-11-10 08:55] LABS: Appearance Urine HAZY; Color Urine YELLOW
[2020-11-10 09:02] LABS: Amorphous Sediment Urine 1+ /LPF; Bacteria Urine TRACE /LPF; Squamous Epithelial Cell Urine 2+ /LPF; UPreg QC Valid YES; Urine Pregnancy NEGATIVE (NEGATIVE); WBC Urine 0-2 /HPF (0-4)
--- NOTE | 2020-11-10 09:58 | PC.NURSE ---
patient continuously asking for pain medication. was given gi cocktail, took small sip then began to vomit, was offered carafate and patient refused. patient fell asleep and rn gave her gingerale and told her to sip on it to see if she could tolerate, patient drank whole can of gingerale and then vomited all gingerale.provider aware and is contacting hospitalist at this time.
[2020-11-10] MEDS: Pantoprazole Sodium 40 MG/10 ML VIAL IVPUSH (10:05)
[2020-11-10] MEDS: Haloperidol Lactate 5 MG/ML VIAL IM (10:06)
[2020-11-10] MEDS: Sucralfate Oral Suspension 1 GM/10 ML ORAL.SUSP PO (10:33)
--- NOTE | 2020-11-10 11:18 | PM.IMHP ---
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 At that time, she was treated symptomatically with anti-emetics, IVF and PPI. She was evaluated by GI with plans for inpatient endoscopy. However, on the day of the planned procedure, her symptoms improved significantly to the point where she was tolerating solids. She deferred inpatient endoscopy and elected to f/u with GI for an outpatient endoscopy. She now reports with a recurrence of her symptoms. While in the ED, she was treated with multiple anti-emetics including reglan/zofran/2 rounds of ativan, maalox, IV protonix, carafate, GI cocktail and eventually IM haldol but her symptoms persisted and so she will be admitted for further management of her symptoms. Patient is seen and examined in the ED. She reports continue epigastric abdominal pain. She reports that this started the day after discharge and became progressively worse. She reports no hematemesis or coffee ground emesis. She reports minimal improvement with the medications listed above. She reports her last marijuana use was prior to her previous admission. Review of Systems Review of Systems: General - denies fevers or chills, denies weakness or fatigue HEENT -denies blurred vision, denies headache, denies sore throat Cardiovascular - denies chest pain or palpitations, denies edema Respiratory - denies shortness of breath, coughing, wheezing Gastrointestinal - +abdominal pain, nausea, vomiting; no hematemesis / coffee ground emesis. - denies flank pain, denies dysuria, denies frequency or urgency Musculoskeletal - denies back pain, denies hip pain, denies knee pain, denies shoulder pain Neurological - denies any focal weakness or numbness Skin, denies any bruising or redness Psychiatric - denies any suicidal ideation, hallucinations, homicidal ideation Endocrinology - denies intolerance to hot / cold temperatures [facility] Medical History Acid reflux Asthma Gastritis GERD (gastroesophageal reflux disease) Morbid obesity Family History Mother No problems noted. Father No problems noted. Brother No problems noted. Brother No problems noted. Surgical History No significant past surgical history Social History Household Members: Other Household Members Other:: mother Housing: Apartment Do you presently have visiting nurse or other home services: No Alcohol intake: never Patient Tobacco Use Status: Never used Tobacco Use of substances other than those prescribed or required for medical reasons: Yes Substance Use Type: Marijuana Advance Directives: No Advance Directives Information Provided: Yes service: No Current occupational status: employed Meds Allergies Allergy/AdvReac Type Severity Reaction Status Date / Time No Known Allergies Allergy Verified 10/30/20 02:32 Home Medications Medication Instructions Recorded Confirmed Last Taken Type amitriptyline 10 mg tablet 10 mg PO BEDTIME 05/31/20 11/05/20 Unknown History albuterol sulfate 90 mcg/actuation 2 puff INHALATION Q6H PRN 06/09/20 11/05/20 Unknown History aerosol inhaler Physical Exam Vital Signs and Narrative: Vital Signs: Last Vital Signs Temp 97.7 F 11/10/20 07:11 Pulse 75 11/10/20 08:46 Resp 18 11/10/20 08:46 BP 150/104 H 11/10/20 08:46 Pulse Ox 96 11/10/20 11:09 Body Mass Index 28.3 Const: Other: Constitutional - Awake and Alert, appears uncomfortable Eyes - PERRLA, EOMI Cardiovascular - S1S2, RRR, No edema Respiratory - Normal lung expansion, Normal respiratory effort, No respiratory distress, CTA bilaterally Gastrointestinal - +epigastric tenderness to deep palpation; no rebound or guarding; hypoactive BS - No CVA tenderness Extremities - no calf tenderness bilaterally, no swelling Musculoskeletal - Normal inspection, normal ROM Skin - Warm/Dry Neurological - Alert & oriented x3, No focal deficit Psychological - Appropriate affect Results Labs CBC and Chem 7: 11/10/20 07:28 11/10/20 08:00 Labs: Laboratory Results - last 24 hr 11/10/20 11/10/20 11/10/20 07:28 07:49 08:00 MCV 84.0 MCH 27.7 MCHC 32.9 RDW 13.0 Plt Count 288 MPV 10.1 Immature Gran % (Auto) 0.6 H Neut % (Auto) 77.8 H Lymph % (Auto) 14.1 L [place] % (Auto) 6.6 Eos % (Auto) 0.7 Baso % (Auto) 0.2 Lymph # (Auto) 2.5 [place] # (Auto) 1.2 Eos # (Auto) 0.1 Baso # (Auto) 0.0 Abs Immat Gran (auto) 0.11 H Absolute Neuts (auto) 13.8 H Absolute Nucleated RBC 0.000 Nucleated RBC % (auto) 0.0 Anion Gap 14 Estim Creat Clear Calc 112.6 Estimated GFR > 60 Random Glucose 127 H Calcium 8.9 Total Bilirubin 0.4 AST 32 H ALT 68 H Alkaline Phosphatase 87 D Total Protein 7.6 Albumin 4.2 Urine Color Urine Appearance Urine pH Ur Specific [place] Urine Protein Urine Glucose (UA) Urine Ketones Urine Blood Urine Nitrite Ur Leukocyte Esterase Urine RBC Urine WBC Ur Squamous Epith Cells Amorphous Sediment Urine Bacteria Urine Test COVID-19 ([facility]TE) Negative COVID-19 Clin Com See Note 11/10/20 11/10/20 08:47 08:47 MCV MCH MCHC RDW Plt Count MPV Immature Gran % (Auto) Neut % (Auto) Lymph % (Auto) [place] % (Auto) Eos % (Auto) Baso % (Auto) Lymph # (Auto) [place] # (Auto) Eos # (Auto) Baso # (Auto) Abs Immat Gran (auto) Absolute Neuts (auto) Absolute Nucleated RBC Nucleated RBC % (auto) Anion Gap Estim Creat Clear Calc Estimated GFR Random Glucose Calcium Total Bilirubin AST ALT Alkaline Phosphatase Total Protein Albumin Urine Color YELLOW Urine Appearance HAZY Urine pH 6.5 Ur Specific [place] 1.015 Urine Protein NEG Urine Glucose (UA) NEG Urine Ketones NEG Urine Blood 1+ H Urine Nitrite NEG Ur Leukocyte Esterase NEG Urine RBC 1-4 Urine WBC 0-2 Ur Squamous Epith Cells 2+ Amorphous Sediment 1+ Urine Bacteria TRACE Urine Test NEGATIVE COVID-19 ([facility]) COVID-19 Clin Com Assessment and Plan (1) Cyclical vomiting: Status: Acute This is a 30 yo F with 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 Her symptoms have persisted despite multiple anti-emetics and so she will be placed under observation for further treatment. 1. Suspected CVS secondary to marijuana use continue anti-emetics continue IVF continue oral PPI clear liquids if she can tolerate GI consult she has been encouraged complete cessation of marijuana 2. Leukocytosis likely reactive, no definitive foci of infection monitor 3. Transminitis from fatty liver (see CT from 11/05) continue her baseline meds once med rec completed Full Code DVT pptx - Low risk,early ambulation + mechanical device Quality Stroke Does the patient have a stroke diagnosis?: No VTE Prior VTE?: No VTE Risk Level:: Medical - low VTE Device Contraindication: N/A - Device Ordered VTE Drug Contraindication: Treatment Not Indicated
--- NOTE | 2020-11-10 11:45 | PHA.MEDREC ---
Pharmacy Consult ? Medication Reconciliation Pharmacy has completed the medication reconciliation.
[2020-11-10] MEDS: Dextrose 5 % and 0.45 % NaCl 1,000 ML 100 ML IVCONT ×2 (13:49→23:54)
--- NOTE | 2020-11-10 13:59 | PM.GICN ---
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 Patient was recently admitted [place] [facility] [place] 11/07 for epigastric abdominal pain with associated intractable nausea and vomiting and received conservative rx with fluids, anti-emetics, IVF and PPI. She was d/c'ed home as she felt better and had felt godd for 1-2 d before sx recurred again today with severe epigastric pain 10/10 with non bloody emesis. she denies diarrhea or constipation, no rectal bleeding or melena. denies taking further THC. as before the only relieving factor is hot showers. currently received reglan/zofran/2 rounds of ativan, maalox, IV protonix, carafate, GI cocktail and IM haldol. Last CT 11/05/2020--with ovarian cyst, fatty liver, no acute pathology. Review of Systems Review of Systems: General - denies fevers or chills, denies weakness or fatigue HEENT -denies blurred vision, denies headache, denies sore throat Cardiovascular - denies chest pain or palpitations, denies edema Respiratory - denies shortness of breath, coughing, wheezing Gastrointestinal - +abdominal pain, nausea, vomiting; no hematemesis / coffee ground emesis. - denies flank pain, denies dysuria, denies frequency or urgency Musculoskeletal - denies back pain, denies hip pain, denies knee pain, denies shoulder pain Neurological - denies any focal weakness or numbness Skin, denies any bruising or redness Psychiatric - denies any suicidal ideation, hallucinations, homicidal ideation Endocrinology - denies intolerance to hot / cold temperatures [facility] Past Medical History Medical History Acid reflux Asthma Gastritis GERD (gastroesophageal reflux disease) Morbid obesity Family History Family History Mother No problems noted. Father No problems noted. Brother No problems noted. Brother No problems noted. Surgical History Surgical History No significant past surgical history Social History Social History Household Members: Other Household Members Other:: mother Housing: Apartment Do you presently have visiting nurse or other home services: No Alcohol intake: never Patient Tobacco Use Status: Never used Tobacco Use of substances other than those prescribed or required for medical reasons: Yes Substance Use Type: Marijuana Advance Directives: No Advance Directives Information Provided: Yes service: No Current occupational status: employed Meds Allergies Allergy/AdvReac Type Severity Reaction Status Date / Time No Known Allergies Allergy Verified 10/30/20 02:32 Active Medications: Current Medications Generic Name Dose Route Start Last Admin Trade Name Freq PRN Reason Stop Dose Admin Acetaminophen 650 mg 11/10/20 11:13 Acetaminophen 325 Mg Tablet PO Q6H PRN Pain, Mild (Pain Scale 1-3) Amitriptyline HCl 25 mg 11/10/20 21:00 Amitriptyline Hcl 25 Mg Tablet PO BEDTIME [facility] Dextrose/Sodium Chloride 1,000 mls @ 100 mls/hr 11/10/20 11:30 11/10/20 13:49 D51/2ns IVCONT 100 mls/hr .Q10H RIVAS Administration Omeprazole 20 mg 11/10/20 16:30 Omeprazole 20 Mg Capsule.Dr PACE BID@[id number] [facility] Ondansetron HCl 4 mg 11/10/20 11:13 Ondansetron Hcl 4 Mg/2 Ml Vial IVPUSH Q8H PRN Nausea and Vomiting Pharmacy Consult 1 each 11/10/20 11:28 Consult Rx Perform Med Rec MISCELLANE ONCE PRN Consult order Sodium Chloride 3 ml 11/10/20 16:00 0.9 % Sodium Chloride Flush 3 Ml Syringe IVFLUSH QSHIFT [facility] Home Medications Medication Instructions Recorded Confirmed Last Taken Type amitriptyline 25 mg tablet 1 tab PO BEDTIME 11/10/20 11/10/20 11/09/20 History Physical Exam Vital Signs: Vital Signs: Last Vital Signs Temp 97.7 F 11/10/20 07:11 Pulse 60 11/10/20 13:52 Resp 16 11/10/20 13:52 BP 176/91 H 11/10/20 13:52 Pulse Ox 98 11/10/20 13:52 Body Mass Index 28.3 EXAM: GENERAL: The patient is obese, and uncomfortable VITAL SIGNS:see workflow HEENT: Nonicteric sclerae, PERRLA, EOMI. Oropharynx clear. Moist mucous membranes. Conjunctivae appear well perfused. No thyroid mass. CHEST: Chest wall is nontender. HEART: Regular rate and rhythm without murmurs. LUNGS: Clear to auscultation bilaterally. ABDOMEN: Soft, positive bowel sounds, tender epigastrium, no organomegaly.no flank tenderness SKIN: No rash, no excessive bruising, petechiae, or purpura. NEUROLOGIC: Cranial nerves II-XII intact without motor/sensory deficit. Psych--nml affect Const: Other: Constitutional - Awake and Alert, appears uncomfortable Eyes - PERRLA, EOMI Cardiovascular - S1S2, RRR, No edema Respiratory - Normal lung expansion, Normal respiratory effort, No respiratory distress, CTA bilaterally Gastrointestinal - +epigastric tenderness to deep palpation; no rebound or guarding; hypoactive BS - No CVA tenderness Extremities - no calf tenderness bilaterally, no swelling Musculoskeletal - Normal inspection, normal ROM Skin - Warm/Dry Neurological - Alert & oriented x3, No focal deficit Psychological - Appropriate affect Results Labs CBC & Chem 7: 11/11/20 06:16 11/11/20 06:16 Labs: Short CBC 11/10/20 Range/Units 07:28 WBC 17.8 H (4.8-10.8) X10*3/uL Hgb 14.2 (12.0-16.0) g/dl Hct 43.1 (37-47) % Plt Count 288 (160-400) X10*3/uL BMP 11/10/20 08:00 Sodium 136 Potassium 3.9 Chloride 107 Carbon Dioxide 19 L BUN 7 L Creatinine 0.65 Calcium 8.9 Liver Function 11/10/20 Range/Units 08:00 Total Bilirubin 0.4 (0.0-1.0) mg/dL AST 32 H (5-31) U/L ALT 68 H (0-31) U/L Alkaline Phosphatase 87 D (39-117) U/L Albumin 4.2 (3.5-5.0) g/dL Urine 11/10/20 Range/Units 08:47 Urine Color YELLOW Urine Appearance HAZY Urine pH 6.5 (5.0-8.0) Ur Specific [place] 1.015 (1.005-1.025) Urine Protein NEG (NEG-TRACE) MG/DL Urine Glucose (UA) NEG (NEG) MG/DL Assessment and Plan (1) Cyclical vomiting: Status: Acute 1/ Suspected cannabinoid hyperemesis syndrome larry with improvement of sx with hot showers, ddx: gastroparesis, PUD, gastritis, esophagitis, no evidence of sepsis or UTI, pelvic inflmmatory disease, pancreatitis PLAN: 1/ Cont with PPI BID, and scheduled anti emetics 2/ can add haldol IV or IM --low dose, watch QTC and for tremors etc 3/ can try capsaicin 0.075% and rub into epigastric area q 4 h, can improve sx by improving TRPV1 receptor firing and restoring gastric motility (Leslie et al. Successful Treatment of Cannabinoid Hyperemesis Syndrome with Topical Capsaicin, [facility] [id number]) Procedures Date of Service Date of Service: 11/10/20
--- NOTE | 2020-11-10 17:30 | MHC.CM.PN ---
CM met with patient. assigned to observation, pending bed assignment. Pt has Medicaid. Reviewed FUENTES, signed. Lives with mother, Employed, uses no DME or services. Pt not interested in completing HCP at this time. Pt is too nauseated and tired to participate. D/C plan is home without services. Family to provide transportation. CM to follow for d/c needs.
--- NOTE | 2020-11-10 18:19 | PC.NURSE ---
Pt arrived to unit via stretcher. refused vs, disconnected her IVF and got into the shower. Asked if this nurse could complete her admission and get her settled into room first but refused
[2020-11-10] MEDS: Amitriptyline HCl 25 MG TABLET PO (20:52)
[2020-11-10] MEDS: Metoclopramide HCl 10 MG/2 ML VIAL 5 MG IM (23:52)
[2020-11-11] VITALS: RESP 16
[2020-11-11] MEDS: ondansetron HCL 4 MG/2 ML VIAL IVPUSH (03:30)
[2020-11-11 04:00] VITALS: BP 133/75; PULSE 53; RESP 16; TEMP 36.2; O2SAT 97
[2020-11-11] MEDS: Omeprazole 20 MG CAPSULE.DR PO (06:20)
[2020-11-11 06:45] LABS: MANUAL DIFF FLAG NO
[2020-11-11 06:51] LABS: Basophils Percent Auto 0.1 % (0-2); Eosinophils Absolute Auto 0.1 X10*3/uL (0.0-0.4); Eosinophils Percent Auto 0.3 % (0-4); Hematocrit 43.6 % (37-47); Hemoglobin 14.5 g/dl (12.0-16.0); Imm Gran Abs Auto 0.12 X10*3/uL (0.00-0.03); Imm Gran Pct Auto 0.6 % (0.0-0.4); Lymphocytes Absolute Auto 3.5 X10*3/uL (1.2-4.9); Lymphocytes Percent Auto 17.2 % (20-40); Mean Corpuscular HGB Conc 33.3 g/dl (31.0-35.0); Mean Corpuscular Hemoglobin 27.8 pg (27.0-33.0); Mean Corpuscular Volume 83.7 fL (80-98); Mean Platelet Volume 11.3 fL (9.4-12.3); Monocytes Absolute Auto 1.5 X10*3/uL (0.1-1.2); Monocytes Percent Auto 7.3 % (2-11); Neutrophils Absolute Auto 15.1 X10*3/uL (2.0-8.3); Neutrophils Percent Auto 74.5 % (45-73); Platelet Count 221 X10*3/uL (160-400); Red Blood Count 5.21 X10*6/uL (4.20-5.50); Red Cell Distribution Width 13.1 % (11.0-16.0); White Blood Count 20.2 X10*3/uL (4.8-10.8)
[2020-11-11 07:12] LABS: Anion Gap 16 (12-20); Blood Urea Nitrogen 7 mg/dL (9-16); Calcium 9.5 mg/dL (8.4-10.2); Carbon Dioxide 21 mmol/L (22-29); Chloride 101 mmol/L (96-108); Creatinine Clr Calc Pharmacy 103.1; Estimated Glomerular Filt Rate > 60; Glucose Random 97 mg/dL (60-115); Potassium 3.8 mmol/L (3.3-5.1); Sodium 134 mmol/L (135-145)
[2020-11-11] MEDS: 0.9 % Sodium Chloride Flush 3 ML SYRINGE IVFLUSH (07:26)
[2020-11-11 07:48] VITALS: BP 127/65; PULSE 80; RESP 18; TEMP 36; O2SAT 98
[2020-11-11 11:26] VITALS: BP 130/85; PULSE 100; RESP 17; TEMP 36.1; O2SAT 99
--- NOTE | 2020-11-11 13:51 | PM.DS ---
DS: Providers Provider Date of Service: 11/11/20 <Alina Gorman NP - Last Filed: 11/11/20 14:03> Date of admission: 11/10/20 11:34 <Alina Gorman NP - Last Filed: 11/11/20 14:03> Primary care physician: Liudmila Wheeler <Alina Gorman NP - Last Filed: 11/11/20 14:03> Consults: 11/10/20 11:13 Consult to Gastroenterology Routine Consulting Provider: Delmar Pardo Reason for consultation: Intractale nause and vomiting <Alina Gorman NP - Last Filed: 11/11/20 14:03> Attending physician on discharge: Emmett Kruse <Alina Gorman NP - Last Filed: 11/11/20 14:03> Discharging clinician: Alina Gorman <Alina Gorman NP - Last Filed: 11/11/20 14:03> DS: Diagnosis Discharge Diagnosis (1) Cyclical vomiting: Status: Resolved <Alina Gorman NP - Last Filed: 11/11/20 14:03> DS: Summary Hospital Course Hospital Course: HP as per admitting provider This is a 30 yo F with a PMH of 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 At that time, she was treated symptomatically with anti-emetics, IVF and PPI. She was evaluated by GI with plans for inpatient endoscopy. However, on the day of the planned procedure, her symptoms improved significantly to the point where she was tolerating solids. She deferred inpatient endoscopy and elected to f/u with GI for an outpatient endoscopy. She now reports with a recurrence of her symptoms. While in the ED, she was treated with multiple anti-emetics including reglan/zofran/2 rounds of ativan, maalox, IV protonix, carafate, GI cocktail and eventually IM haldol but her symptoms persisted and so she will be admitted for further management of her symptoms. Patient is seen and examined in the ED. She reports continue epigastric abdominal pain. She reports that this started the day after discharge and became progressively worse. She reports no hematemesis or coffee ground emesis. She reports minimal improvement with the medications listed above. She reports her last marijuana use was prior to her previous admission . Cyclical vomiting syndrome. Likely secondary to marijuana use and gastritis. She was treated with IV fluids, NPO and PPI. Her diet was advanced and she did well, no more vomiting episodes. She was seen and evaluated by Gi and will follow up as an outpatient. <Alina Gorman NP - Last Filed: 11/11/20 14:03> Time Spent with Patient Time attestation: Total time spent providing and/or coordinating discharge services: <Alina Gorman NP - Last Filed: 11/11/20 14:03> Discharge coordination time: Greater than 30 minutes <Alina Gorman NP - Last Filed: 11/11/20 14:03> Quality: Stroke Does the patient have a stroke diagnosis?: No <Alina Gorman NP - Last Filed: 11/11/20 14:03> Physical Exam Vital Signs: Vital Signs: Last Vital Signs Temp 97.0 F 11/11/20 11:26 Pulse 100 11/11/20 11:26 Resp 17 11/11/20 11:26 BP 130/85 11/11/20 11:26 Pulse Ox 99 11/11/20 11:26 Body Mass Index 28.3 <Alina Gorman NP - Last Filed: 11/11/20 14:03> Appearing in no acute distress head is normocephalic atraumatic eyes pupils are PERRLA sclera is anicteric mouth throat mucous membranes are intact and moist neck is supple no lymphadenopathy, no JVD noted lung sounds are clear to auscultation heart regular rate rhythm, clear S1, S2 positive bowel sounds, abdomen is soft, nontender neuro patient is alert x3, no focal deficits <Alina Gorman NP - Last Filed: 11/11/20 14:03> DS: Data Data Completed and Pending Labs on day of discharge: Laboratory Results - last 24 hr 11/11/20 11/11/20 06:16 06:16 WBC 20.2 H RBC 5.21 Hgb 14.5 Hct 43.6 MCV 83.7 MCH 27.8 MCHC 33.3 RDW 13.1 Plt Count 221 MPV 11.3 Immature Gran % (Auto) 0.6 H Neut % (Auto) 74.5 H Lymph % (Auto) 17.2 L [place] % (Auto) 7.3 Eos % (Auto) 0.3 Baso % (Auto) 0.1 Lymph # (Auto) 3.5 [place] # (Auto) 1.5 H Eos # (Auto) 0.1 Baso # (Auto) 0.0 Abs Immat Gran (auto) 0.12 H Absolute Neuts (auto) 15.1 H Absolute Nucleated RBC 0.000 Nucleated RBC % (auto) 0.0 Sodium 134 L Potassium 3.8 Chloride 101 Carbon Dioxide 21 L Anion Gap 16 BUN 7 L Creatinine 0.71 Estim Creat Clear Calc 103.1 Estimated GFR > 60 Random Glucose 97 Calcium 9.5 D <Alina Gorman NP - Last Filed: 11/11/20 14:03> Discharge Plan Discharge Anticipated Discharge Date/Time: 11/11/20 13:48 <Alina Gorman NP - Last Filed: 11/11/20 14:03> Patient Disposition: Home, Self-Care <Alina Gorman NP - Last Filed: 11/11/20 14:03> Discharge Diagnosis: Nausea and vomiting secondary to cyclical vomiting syndrome Gastritis <Alina Gorman NP - Last Filed: 11/11/20 14:03> Nausea and vomiting secondary to cyclical vomiting syndrome Gastritis <Emmett Kruse MD - Last Filed: 11/18/20 21:12> Referrals: Delmar Pardo MD [Physician] - 1 Week Liudmila Wheeler [Primary Care Provider] - 1 Week <Alina Gorman NP - Last Filed: 11/11/20 14:03> Discharge Medications: New omeprazole 20 mg Capsule,Delayed Release(Dr/Ec) 20 mg PO BID@0630,1630 Qty: 60 RF: 0 Continued amitriptyline 25 mg tablet 1 tab PO BEDTIME RF: 0 No Action lorazepam [Ativan] 1 mg tablet 1 mg PO BID PRN (Reason: anxiety) Qty: 20 RF: 0 <Alina Gorman NP - Last Filed: 11/11/20 14:03> Discharge Orders: Discharge Order (Routine); Ordered 11/11/20 Ordered By: Alina Gorman <Alina Gorman NP - Last Filed: 11/11/20 14:03> Diet: advance to usual diet <Alina Gorman NP - Last Filed: 11/11/20 14:03> advance to usual diet <Emmett Kruse MD - Last Filed: 11/18/20 21:12> Activity on Discharge: As tolerated <Alina Gorman NP - Last Filed: 11/11/20 14:03> As tolerated <Emmett Kruse MD - Last Filed: 11/18/20 21:12> Stand Alone Forms: Patient Portal Discharge page <Alina Gorman NP - Last Filed: 11/11/20 14:03> Care Plan Goals: complete resolution of nausea and vomiting <Alina Gorman NP - Last Filed: 11/11/20 14:03> Health Concerns: Nausea and vomiting secondary to cyclical vomiting syndrome Gastritis <Alina Gorman NP - Last Filed: 11/11/20 14:03> Plan of Treatment: Follow-up with linoleum layer for possible endoscopy as an outpatient Follow up with the primary care provider as needed Take Prilosec twice daily for gastritis <Alina Gorman NP - Last Filed: 11/11/20 14:03> Assessment: See discharge summary Patient was admitted to [facility] from 11/10/20-11/11/20 I saw patient and discussued findings, discharge plan and disposition with midlevel and I agree with the above <Alina Gorman NP - Last Filed: 11/11/20 14:03> Discharge Date/Time: 11/11/20 15:45 <Alina Gorman NP - Last Filed: 11/11/20 14:03>
[2020-11-11 15:23] VITALS: BP 129/63; PULSE 98; RESP 16; TEMP 36.6; O2SAT 98
== END 2020-11-11 15:45 | disposition home or self-care (01) ==
LOC: HO.ED 10:11 → HO.EDOVER 11:36 → HO.S3 16:10
PROVIDERS: Admitting Provider Family Medicine; Emergency Provider Student in an Organized Health Care Education/Training Program; PCP Nurse Practitioner Family; Visit Provider Nurse Practitioner Acute Care
DX: R11.15 Cyclical vomiting syndrome unrelated to migraine (principal); K29.70 Gastritis, unspecified, without bleeding; K20.90 Esophagitis, unspecified without bleeding; K21.9 Gastro-esophageal reflux disease without esophagitis; J45.909 Unspecified asthma, uncomplicated; E66.01 Morbid (severe) obesity due to excess calories; Z79.899 Other long term (current) drug therapy
CPT/HCPCS: 36415; 80048; 80053; 81001; 81025; 85025; 87635; 93005; 96361; 96372; 96374; 96375; 96376; 99218; 99285; J1200; J2060; J2405; J2765

== ENCOUNTER 2020-11-14 10:07 | Emergency (ER) | payer MEDICAID, SELFPAY | END 2020-11-14 11:35 | disposition left against medical advice (07) | PROVIDERS: Emergency Provider Emergency Medicine; PCP Nurse Practitioner Family | DX: R07.9 Chest pain, unspecified (principal); R10.9 Unspecified abdominal pain ==

== ENCOUNTER 2020-11-14 18:04 | Emergency (ER) | payer MEDICAID, SELFPAY ==
--- NOTE | 2020-11-14 | ECG_ITS ---
Test Reason : NAUSEA Blood Pressure : / mmHG Vent. Rate : 069 BPM Atrial Rate : 069 BPM P-R Int : 120 ms QRS Dur : 072 ms QT Int : 402 ms P-R-T Axes : 026 034 024 degrees QTc Int : 430 ms Normal sinus rhythm with sinus arrhythmia Normal ECG When compared with ECG of 10-NOV-2020 06:57, No significant change was found Referred By: Generic ED Physician Electronically Signed By:DANNY MYERS
[2020-11-14 18:33] VITALS: BP 126/96; PULSE 79; RESP 18; TEMP 36.2; O2SAT 100; BMI 39.5
[2020-11-14 19:38] LABS: COVID-19 Test Negative (Negative)
--- NOTE | 2020-11-14 20:14 | PC.NURSE ---
tried to draw labs twice, unable to obtain blood
--- NOTE | 2020-11-14 20:46 | ED_ITS ---
HPI - Nausea/Vomiting/Diarrhea General Chief complaint: Nausea/Vomiting/Diarrhea Stated complaint: abd pain Time Seen by Provider: 11/14/20 20:46 Source: patient Mode of arrival: ambulatory Limitations: no limitations History of Present Illness HPI Narrative: Patient's history of cyclic vomiting syndrome cannabis abuse been to hospital multiple times for vomiting was at [facility] earlier today and discharged had a CT scan done on 11/05 as negative comes here for same vomiting is not getting better feel very anxious denies any use of cannabis this time Related Data Home Medications Medication Instructions Recorded Confirmed amitriptyline 25 mg tablet 1 tab PO BEDTIME 11/10/20 11/10/20 Previous Rx's Medication Instructions Recorded omeprazole 20 mg capsule,delayed 20 mg PO BID@0630,1630 #60 cap 11/11/20 release lorazepam 1 mg tablet (Ativan) 1 mg PO BID PRN #20 tab 11/15/20 Allergies Allergy/AdvReac Type Severity Reaction Status Date / Time No Known Allergies Allergy Verified 10/30/20 02:32 Review of Systems Review of Systems: Yes all other systems are reviewed and are negative [facility] Past Medical History Medical History Acid reflux Asthma Gastritis GERD (gastroesophageal reflux disease) Morbid obesity Surgical History No significant past surgical history Family History Family History Mother No problems noted. Father No problems noted. Brother No problems noted. Brother No problems noted. Social History Social History Household Members: Other Household Members Other:: mother Housing: Apartment Do you presently have visiting nurse or other home services: No Alcohol intake: never Patient Tobacco Use Status: Never used Tobacco Use of substances other than those prescribed or required for medical reasons: Yes Substance Use Type: Marijuana Substance Use Frequency: Daily Advance Directives: No Advance Directives Information Provided: No Patient : No service: No Current occupational status: employed Physical Exam Vital Signs: Vital Signs: Last Vital Signs Temp 97.1 F 11/14/20 18:33 Pulse 91 11/14/20 22:04 Resp 16 11/14/20 22:04 BP 120/67 11/14/20 22:04 Pulse Ox 94 11/14/20 22:04 Body Mass Index 39.5 Appearance: Alert. Oriented X3. Very anxious Eyes: PERRLA, no pallor or icterus ENT: Pharynx normal. Oral Mucosa moist Neck: Normal inspection. Neck supple. CVS: Normal heart rate and rhythm. Pulses normal. Respiratory: No respiratory distress. Equal air entry bilateral, no wheezing/rales/rhonchi Abdomen: Soft and nontender. Bowel sounds are present, no mass palpable, no CVA tenderness Skin: Skin warm and dry. Normal skin color. Normal skin turgor. Extremities: No lower extremity edema. Neuro: Oriented X 3. MDM - Nausea/Vomiting/Diarrhea MDM Narrative Medical decision making narrative: Patient received IV fluids feeling much better now taking p.o. fluids patient has chronic leukocytosis no signs of infection leukocytosis secondary to leukemoid reaction secondary to dehydration Lab Data Result diagrams: 11/14/20 20:51 Labs: Lab Results 11/14/20 11/14/20 Range/Units 19:11 20:51 Sodium 136 (135-145) mmol/L Potassium 4.2 (3.3-5.1) mmol/L Chloride 104 (96-108) mmol/L Carbon Dioxide 22 (22-29) mmol/L Anion Gap 14 (12-20) BUN 10 (9-16) mg/dL Creatinine 0.73 (0.5-1.4) mg/dL Estim Creat Clear Calc 133.9 Estimated GFR > 60 Random Glucose 119 H (60-115) mg/dL Calcium 9.9 (8.4-10.2) mg/dL Total Bilirubin 0.7 (0.0-1.0) mg/dL AST 27 (5-31) U/L ALT 56 H (0-31) U/L Alkaline Phosphatase 78 (39-117) U/L Total Protein 8.5 H (6.5-8.0) g/dL Albumin 4.6 (3.5-5.0) g/dL Lipase 78 (8-78) U/L COVID-19 ([facility]ANTE) Negative (Negative) COVID-19 Clin Com See Note Discharge Plan Discharge Clinical Impression: Cyclic vomiting syndrome Patient Disposition: Home, Self-Care Instructions: Acute Nausea and Vomiting (ED) Additional Instructions: Drink plenty of fluids Medication for anxiety/vomiting as prescribed 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
[2020-11-14 20:52] VITALS: BP 151/97; PULSE 98; RESP 22; O2SAT 98
[2020-11-14 21:15] LABS: Alanine Aminotransferase 56 U/L (0-31); Albumin Level 4.6 g/dL (3.5-5.0); Alkaline Phosphatase 78 U/L (39-117); Anion Gap 14 (12-20); Aspartate Amino Transferase 27 U/L (5-31); Bilirubin Total 0.7 mg/dL (0.0-1.0); Blood Urea Nitrogen 10 mg/dL (9-16); Calcium 9.9 mg/dL (8.4-10.2); Carbon Dioxide 22 mmol/L (22-29); Chloride 104 mmol/L (96-108); Creatinine Clr Calc Pharmacy 133.9; Estimated Glomerular Filt Rate > 60; Glucose Random 119 mg/dL (60-115); Lipase 78 U/L (8-78); Potassium 4.2 mmol/L (3.3-5.1); Sodium 136 mmol/L (135-145); Total Protein 8.5 g/dL (6.5-8.0)
[2020-11-14] MEDS: LORazepam 2 MG/ML VIAL IVPUSH (21:20)
[2020-11-14] MEDS: Prochlorperazine Edisylate 10 MG/2 ML VIAL IVPUSH (21:20)
[2020-11-14] MEDS: 0.9 % Sodium Chloride 1,000 ML 999 ML IVCONT ×2 (21:20→23:52)
[2020-11-14] MEDS: Famotidine/PF 20 MG/2 ML VIAL IVPUSH (21:21)
[2020-11-14 22:04] VITALS: BP 120/67; PULSE 91; RESP 16; O2SAT 94
--- NOTE | 2020-11-14 22:05 | PC.NURSE ---
pt is currently sound asleep, respirations even and unlabored vs stable
--- NOTE | 2020-11-14 23:53 | PC.NURSE ---
pt given po challange. pt is on her 2nd bag of iv fluids and has been sleeping.
--- NOTE | 2020-11-15 00:07 | PC.NURSE ---
pt kamala po challange, pt feels ready for discharge. pt has been sleeping and repositions self with no n/v. skin pink warm and dry. vitals stable.
== END 2020-11-15 00:20 | disposition home or self-care (01) ==
PROVIDERS: Emergency Provider Internal Medicine
DX: R11.15 Cyclical vomiting syndrome unrelated to migraine (principal); Z20.822 Contact with and (suspected) exposure to COVID-19; F12.10 Cannabis abuse, uncomplicated
CPT/HCPCS: 36415; 80053; 83690; 87635; 93005; 96361; 96374; 96375; 99284; J2060

== ENCOUNTER 2020-12-07 23:39 | Emergency (ER) | payer MEDICAID, SELFPAY ==
[2020-12-07 23:59] VITALS: BP 96/70; PULSE 66; RESP 18; TEMP 36.2; O2SAT 99
[2020-12-08 00:31] LABS: Basophils Percent Auto 0.2 % (0-2); Eosinophils Absolute Auto 0.1 X10*3/uL (0.0-0.4); Eosinophils Percent Auto 0.3 % (0-4); Hematocrit 43.3 % (37-47); Hemoglobin 14.2 g/dl (12.0-16.0); Imm Gran Abs Auto 0.15 X10*3/uL (0.00-0.03); Imm Gran Pct Auto 0.8 % (0.0-0.4); Lymphocytes Absolute Auto 2.5 X10*3/uL (1.2-4.9); Lymphocytes Percent Auto 12.5 % (20-40); MANUAL DIFF FLAG NO; Mean Corpuscular HGB Conc 32.8 g/dl (31.0-35.0); Mean Corpuscular Hemoglobin 27.5 pg (27.0-33.0); Mean Corpuscular Volume 83.8 fL (80-98); Mean Platelet Volume 10.1 fL (9.4-12.3); Monocytes Absolute Auto 0.8 X10*3/uL (0.1-1.2); Monocytes Percent Auto 4.2 % (2-11); Neutrophils Absolute Auto 16.2 X10*3/uL (2.0-8.3); Platelet Count 277 X10*3/uL (160-400); Red Blood Count 5.17 X10*6/uL (4.20-5.50); White Blood Count 19.8 X10*3/uL (4.8-10.8)
[2020-12-08 00:37] VITALS: BMI 36.6
[2020-12-08] MEDS: Prochlorperazine Edisylate 10 MG/2 ML VIAL IM (00:37)
[2020-12-08] MEDS: LORazepam 2 MG/ML VIAL IM (00:38)
[2020-12-08] MEDS: Haloperidol Lactate 5 MG/ML VIAL 2 MG IM (01:07)
--- NOTE | 2020-12-08 01:11 | PC.NURSE ---
Pt continues dry heaving with intermittent nausea despite IM meds given by Kim Lucas RN. Dr Herring to bedside, orders haldol. This RN medicated pt with haldol per orders. Pt stretcher low locked position, rails raised, call valdovinos within reach.
[2020-12-08 01:13] LABS: Alanine Aminotransferase 54 U/L (0-31); Albumin Level 4.3 g/dL (3.5-5.0); Alkaline Phosphatase 81 U/L (39-117); Anion Gap 17 (12-20); Aspartate Amino Transferase 37 U/L (5-31); Bilirubin Direct 0.2 mg/dL (0.0-0.5); Bilirubin Total 0.7 mg/dL (0.0-1.0); Blood Urea Nitrogen 9 mg/dL (9-16); Calcium 9.6 mg/dL (8.4-10.2); Carbon Dioxide 18 mmol/L (22-29); Chloride 105 mmol/L (96-108); Creatinine Clr Calc Pharmacy 114.5; Estimated Glomerular Filt Rate > 60; Glucose Random 148 mg/dL (60-115); Lipase 23 U/L (8-78); Sodium 136 mmol/L (135-145)
--- NOTE | 2020-12-08 01:46 | ED.NAVMDI ---
HPI - Nausea/Vomiting/Diarrhea General Chief complaint: Nausea/Vomiting/Diarrhea Stated complaint: Vomiting/Abd pain Time Seen by Provider: 12/08/20 00:28 Source: patient Mode of arrival: ambulatory Limitations: no limitations History of Present Illness HPI Narrative: Patient with cyclic vomiting syndrome of multiple ER visits comes here for similar complaints of vomiting for last few hours patient looks very anxious forcing herself to vomit patient denies taking any THC now was seen multiple times in last few months feels anxious no diarrhea no fever no chills no significant abdominal pain Related Data Home Medications Medication Instructions Recorded Confirmed amitriptyline 25 mg tablet 1 tab PO BEDTIME 11/10/20 11/10/20 Previous Rx's Medication Instructions Recorded omeprazole 20 mg capsule,delayed 20 mg PO BID@0630,1630 #60 cap 11/11/20 release lorazepam 1 mg tablet (Ativan) 1 mg PO BID PRN #20 tab 11/15/20 Allergies Allergy/AdvReac Type Severity Reaction Status Date / Time No Known Allergies Allergy Verified 10/30/20 02:32 Review of Systems Review of Systems: Yes all other systems are reviewed and are negative COUNTS INCLUDE 234 BEDS AT THE [facility] Past Medical History Medical History Acid reflux Asthma Esophagitis Gastritis GERD (gastroesophageal reflux disease) Morbid obesity Surgical History No significant past surgical history Family History Family History Mother No problems noted. Father No problems noted. Brother No problems noted. Brother No problems noted. Social History Social History Household Members: Other Household Members Other:: mother Housing: Apartment Do you presently have visiting nurse or other home services: No Alcohol intake: never Patient Tobacco Use Status: Never used Tobacco Substance Use Type: Marijuana Advance Directives: No Advance Directives Information Provided: Yes Patient : No service: No Current occupational status: employed Physical Exam Vital Signs: Vital Signs: Last Vital Signs Temp 97.2 F 12/07/20 23:59 Pulse 66 12/07/20 23:59 Resp 18 12/07/20 23:59 BP 96/70 12/07/20 23:59 Pulse Ox 99 12/07/20 23:59 Body Mass Index 36.6 Appearance: Alert. Oriented X3. Very anxious forcefully trying to vomit obese Eyes: No pallor icterus ENT: Pharynx normal. Oral Mucosa moist Neck: Normal inspection. Neck supple. CVS: Normal heart rate and rhythm. Pulses normal. Respiratory: No respiratory distress. Equal air entry bilateral, no wheezing/rales/rhonchi Abdomen: Soft mild epigastric tenderness Bowel sounds are present, no mass palpable, no CVA tenderness Skin: Skin warm and dry. Normal skin color. Normal skin turgor. Extremities: No lower extremity edema. No calf tenderness Neuro: Oriented X 3. MDM - Nausea/Vomiting/Diarrhea MDM Narrative Medical decision making narrative: Patient with chronic leukocytosis secondary to vomiting as in the past sleeping at this time after Ativan Compazine and Haldol will watch her for sometime discharge in the morning Lab Data Result diagrams: 12/08/20 00:26 12/08/20 00:26 Labs: Lab Results 12/08/20 12/08/20 Range/Units 00:26 00:26 WBC 19.8 H (4.8-10.8) X10*3/uL RBC 5.17 (4.20-5.50) X10*6/uL Hgb 14.2 (12.0-16.0) g/dl Hct 43.3 (37-47) % MCV 83.8 (80-98) fL MCH 27.5 (27.0-33.0) pg MCHC 32.8 (31.0-35.0) g/dl RDW 13.0 (11.0-16.0) % Plt Count 277 D (160-400) X10*3/uL MPV 10.1 (9.4-12.3) fL Immature Gran % (Auto) 0.8 H (0.0-0.4) % Neut % (Auto) 82.0 H (45-73) % Lymph % (Auto) 12.5 L (20-40) % [place] % (Auto) 4.2 (2-11) % Eos % (Auto) 0.3 (0-4) % Baso % (Auto) 0.2 (0-2) % Lymph # (Auto) 2.5 (1.2-4.9) X10*3/uL [place] # (Auto) 0.8 (0.1-1.2) X10*3/uL Eos # (Auto) 0.1 (0.0-0.4) X10*3/uL Baso # (Auto) 0.0 (0.0-0.2) X10*3/uL Abs Immat Gran (auto) 0.15 H (0.00-0.03) X10*3/uL Absolute Neuts (auto) 16.2 H (2.0-8.3) X10*3/uL Absolute Nucleated RBC 0.000 (0.0-0.012) X10*3/uL Nucleated RBC % (auto) 0.0 (0.0-0.2) /100WBC Sodium 136 (135-145) mmol/L Potassium 4.0 (3.3-5.1) mmol/L Chloride 105 (96-108) mmol/L Carbon Dioxide 18 L (22-29) mmol/L Anion Gap 17 (12-20) BUN 9 (9-16) mg/dL Creatinine 0.76 (0.5-1.4) mg/dL Estim Creat Clear Calc 114.5 Estimated GFR > 60 Random Glucose 148 H (60-115) mg/dL Calcium 9.6 (8.4-10.2) mg/dL Total Bilirubin 0.7 (0.0-1.0) mg/dL Direct Bilirubin 0.2 (0.0-0.5) mg/dL AST 37 H (5-31) U/L ALT 54 H (0-31) U/L Alkaline Phosphatase 81 (39-117) U/L Total Protein 8.0 (6.5-8.0) g/dL Albumin 4.3 (3.5-5.0) g/dL Lipase 23 (8-78) U/L Discharge Plan Discharge Clinical Impression: Cyclical vomiting Patient Disposition: Home, Self-Care Instructions: Acute Nausea and Vomiting (ED) Additional Instructions: Continue taking medication do not smoke marijuana follow with regrinder Prescriptions: No Action amitriptyline 25 mg tablet 1 tab PO BEDTIME RF: 0 omeprazole 20 mg Capsule,Delayed Release(Dr/Ec) 20 mg PO BID@0630,1630 Qty: 60 RF: 0 lorazepam [Ativan] 1 mg tablet 1 mg PO BID PRN (Reason: anxiety) Qty: 20 RF: 0
[2020-12-08 02:59] VITALS: BP 143/103; PULSE 57; RESP 14; O2SAT 97
[2020-12-08 05:28] VITALS: BP 152/102; PULSE 86
[2020-12-08 06:36] VITALS: BP 149/92; PULSE 86; RESP 18; O2SAT 97
== END 2020-12-08 07:01 | disposition home or self-care (01) ==
PROVIDERS: Emergency Provider Internal Medicine
DX: F12.99 Cannabis use, unspecified with unspecified cannabis-induced disorder (principal); R11.2 Nausea with vomiting, unspecified; R19.7 Diarrhea, unspecified; Z79.899 Other long term (current) drug therapy
CPT/HCPCS: 36415; 80053; 82248; 83690; 85025; 96372; 99283; 99284; J2060

== ENCOUNTER 2021-02-13 12:00 | Emergency (ER) | payer MEDICAID, SELFPAY ==
--- NOTE | 2021-02-13 | ECG_ITS ---
Test Reason : CP Blood Pressure : / mmHG Vent. Rate : 072 BPM Atrial Rate : 072 BPM P-R Int : 128 ms QRS Dur : 072 ms QT Int : 386 ms P-R-T Axes : 041 027 015 degrees QTc Int : 422 ms Normal sinus rhythm with sinus arrhythmia Normal ECG When compared with ECG of 14-NOV-2020 19:03, No significant change was found Referred By: Generic ED Physician Electronically Signed By:Ellis Horn
[2021-02-13 12:02] VITALS: BP 147/100; PULSE 81; RESP 18; TEMP 36.4; O2SAT 98; BMI 40.2
--- NOTE | 2021-02-13 12:43 | PC.NURSE ---
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 EKG ordered.
[2021-02-13 13:13] LABS: MANUAL DIFF FLAG NO
[2021-02-13 13:14] LABS: Basophils Percent Auto 0.2 % (0-2); Eosinophils Absolute Auto 0.1 X10*3/uL (0.0-0.4); Eosinophils Percent Auto 0.5 % (0-4); Hematocrit 42.3 % (37.0-47.0); Imm Gran Abs Auto 0.08 X10*3/uL (0.00-0.03); Imm Gran Pct Auto 0.5 % (0.0-0.4); Lymphocytes Absolute Auto 2.2 X10*3/uL (1.2-4.9); Lymphocytes Percent Auto 14.4 % (20-40); Mean Corpuscular HGB Conc 33.1 g/dl (31.0-35.0); Mean Corpuscular Hemoglobin 27.9 pg (27.0-33.0); Mean Corpuscular Volume 84.3 fL (80.0-98.0); Monocytes Absolute Auto 1.1 X10*3/uL (0.1-1.2); Monocytes Percent Auto 7.5 % (2-11); Neutrophils Absolute Auto 11.7 x10*3/uL (2.0-8.3); Neutrophils Percent Auto 76.9 % (45-73); Platelet Count 266 X10*3/uL (160-400); Red Blood Count 5.02 X10*6/uL (4.20-5.50); Red Cell Distribution Width 12.5 % (11.0-16.0); White Blood Count 15.2 X10*3/uL (4.8-10.8)
[2021-02-13 13:33] LABS: Alanine Aminotransferase 50 U/L (0-31); Albumin Level 4.2 g/dL (3.5-5.0); Alkaline Phosphatase 68 U/L (39-117); Anion Gap 12 (12-20); Aspartate Amino Transferase 26 U/L (5-31); Bilirubin Direct 0.3 mg/dL (0.0-0.5); Bilirubin Total 0.8 mg/dL (0.0-1.0); Blood Urea Nitrogen 8 mg/dL (9-16); Calcium 9.4 mg/dL (8.4-10.2); Carbon Dioxide 24 mmol/L (22-29); Chloride 102 mmol/L (96-108); Estimated Glomerular Filt Rate > 60; Glucose Random 99 mg/dL (60-115); Lipase 12 U/L (8-78); Potassium 4.3 mmol/L (3.3-5.1); Sodium 134 mmol/L (135-145); Total Protein 7.7 g/dL (6.5-8.0)
--- NOTE | 2021-02-13 14:32 | PC.NURSE ---
ATTEMPTED TO CALL PATIENT INTO ED. NO ANSWER IN WAITING ROOM
--- NOTE | 2021-02-13 15:20 | PC.NURSE ---
NO ANSWER IN WAITING ROOM FOR A SECOND TIME
== END 2021-02-13 15:22 | disposition left against medical advice (07) ==
PROVIDERS: Emergency Provider Emergency Medicine
DX: R11.10 Vomiting, unspecified (principal); Z79.899 Other long term (current) drug therapy
CPT/HCPCS: 36415; 80048; 80076; 83690; 85025; 93005; 99283

== ENCOUNTER 2021-06-12 14:47 | Outpatient (REF) | payer MEDICAID, SELFPAY ==
[2021-06-12 16:54] LABS: Amylase 55 U/L (28-100); Lipase 16 U/L (8-78)
[2021-06-12 17:14] LABS: TSH reflex Free T4 0.85 uIU/mL (0.32-4.0)
[2021-06-12 17:26] LABS: Folate 7.8 ng/mL (> or = 4.0); Vitamin B12 297 pg/mL (200-900)
[2021-06-14 13:07] LABS: Transglutaminase Ab IgG <1.0 U/mL; Transglutaminase IgA <1.0 U/mL
[2021-06-17 13:42] LABS: Vitamin D 25-OH, D2 <4 ng/mL; Vitamin D 25-OH, D3 9 ng/mL; Vitamin D 25-OH, Total 9 ng/mL (30-100)
== END 2021-06-12 14:48 | disposition home or self-care (01) ==
LOC: HO.LAB 14:47
PROVIDERS: PCP Nurse Practitioner Family; Referring Provider Nurse Practitioner Family; Visit Provider Nurse Practitioner Family
DX: R10.9 Unspecified abdominal pain (principal); K21.9 Gastro-esophageal reflux disease without esophagitis; R19.7 Diarrhea, unspecified; K58.9 Irritable bowel syndrome, unspecified; E55.9 Vitamin D deficiency, unspecified
CPT/HCPCS: 36415; 82150; 82306; 82607; 82746; 83690; 84443; 86140; 86364; 99202

== ENCOUNTER 2021-07-07 08:14 | Emergency (ER) | payer MEDICAID, SELFPAY ==
--- NOTE | 2021-07-07 08:23 | ED.ABDPAIN ---
HPI - Abdominal Pain General Chief Complaint: Nausea/Vomiting/Diarrhea Stated Complaint: abd pain nausea Time Seen by Provider: 07/07/21 08:23 Source: patient and old records reviewed Mode of arrival: ambulatory Limitations: no limitations History of Present Illness HPI narrative: 31 yo female hx o cyclical vomiting, GERD, asthma, obesity - taking 30mg oxy snorting up to 3 tabs a day was at [facility] since yesterday they started her on methadone 10mg - she started to have her usual n/v and abdominal pain which feels like her cyclical vomiting - no other complaints MD elicited complaint: abdominal pain Pertinent past history: other (cyclical vomiting, opiate use disorder) Onset (ago): day(s) (yesterday ) Pain Consistency: constant Location: epigastric Severity: moderate Quality: cramping Radiation: none Migration to: no migration Exacerbating factors: eating and movement Relieving factors: nothing Context: history of similar episodes Associated symptoms: nausea and vomiting Treatments prior to arrival: other (methadone) Related Data Home Medications Medication Instructions Recorded Confirmed amitriptyline 25 mg tablet 1 tab PO BEDTIME 11/10/20 11/10/20 ondansetron HCl 4 mg tablet 4 mg PO Q8H 06/12/21 Previous Rx's Medication Instructions Recorded capsaicin 0.1 % topical cream 1 appl TOPICAL BID #42.5 g 06/12/21 pantoprazole 40 mg tablet,delayed 40 mg PO BID #60 tab 06/12/21 release simethicone 180 mg capsule (Gas 180 mg PO BID PRN #60 cap 06/12/21 Relief (simethicone)) cholecalciferol (vitamin D3) 1,250 1,250 mcg PO QWEEK #13 cap 06/28/21 mcg (50,000 unit) capsule sucralfate 100 mg/mL oral 10 ml PO BEDTIME #400 ml 06/28/21 suspension ondansetron 4 mg disintegrating 4 mg PO Q8H PRN #20 tab 07/07/21 tablet Allergies Allergy/AdvReac Type Severity Reaction Status Date / Time No Known Allergies Allergy Verified 06/12/21 14:54 Review of Systems Review of Systems Constitutional : No Weight loss, No Fever, No Chills ENT/Mouth : No sore throat, No Rhinorrhea Eyes: No Swelling, No Redness Cardiovascular : No Chest Pain, No SOB, NoEdema Respiratory : No Cough, No Sputum, No Wheezing Gastrointestinal : Positive Nausea, Positive Vomiting, no Diarrhea, positive abdominal Pain, No Hematochezia, No Melena Genitourinary : No Dysuria, No Urinary Frequency, No Hematuria, No Urgency Musculoskeletal : No joint pain, No Myalgias, No Joint Swelling Skin : No Skin Lesions, No rash Neuro : No Weakness, No Numbness, No Dizziness, No Headache Psych : No Anxiety/Panic, No Depression Heme/Lymph: No Bruising, No Lymphadenopathy Endocrine : No Polyuria, No Polydipsia All other systems reviewed and are negative. [facility], [facility] Past Medical History Attestation statement: The following information was validated with the patient. Medical History Acid reflux Asthma Cyclic vomiting syndrome Esophagitis Gastritis GERD (gastroesophageal reflux disease) Morbid obesity Surgical History History of esophagogastroduodenoscopy (EGD) No significant past surgical history Family History Family History (Updated 06/12/21 @ 14:58 by LISA Jimenez) Mother Arthritis GERD (gastroesophageal reflux disease) Fibromyalgia Father Asthma Maternal Grandmother Breast cancer HTN (hypertension) Diabetes Maternal Uncle Prostate cancer Maternal Aunt Cervical cancer Maternal Aunt Breast cancer Maternal Grandfather Diabetes HTN (hypertension) Social History Social History Household Members: Other Household Members Other:: mother Housing: Apartment Do you presently have visiting nurse or other home services: No Alcohol intake: never Patient Tobacco Use Status: Never used Tobacco Use of substances other than those prescribed or required for medical reasons: Yes Substance Use Type: Painkillers Advance Directives: No Advance Directives Information Provided: Yes Patient : No service: No Current occupational status: employed Physical Exam ED Vital Signs: Vital Signs - 24 hr 07/07/21 08:29 07/07/21 08:35 Temperature 98.6 F 98.6 F Pulse Rate 77 77 Respiratory Rate 16 14 Blood Pressure 140/93 H 140/93 H Pulse Oximetry 96 96 BMI result Body Mass Index 36.6 Appearance: Alert. Oriented X3. No acute distress. Eyes: Pupils equal, round and reactive to light. ENT: Pharynx normal. Neck: Normal inspection. Neck supple. CVS: Normal heart rate and rhythm. Pulses normal. Respiratory: No respiratory distress. Breath sounds normal. Abdomen: Soft and mild epigastric ttp Skin: Skin warm and dry. Normal skin color. Normal skin turgor. Extremities: No lower extremity edema. No calf ttp Neuro: Oriented X 3. No motor deficit. No sensory deficit. Course Course Course Narrative: LFTs at baseline, can tolerate PO stable for DC at this time MDM - Abdominal Pain MDM Narrative Medical decision making narrative: 31 yo female with hx of asthma, GERD, opiate use disorder at rehab now started on 10mg methadone now here with c/o vomiting and abdominal pain consistent with her cyclical vomiting syndrome. [facility] can take her back once she is medically cleared. Will need labs, IVF, IV medications. EKG for qtC. Dispo per results and findings. Lab Data Result diagrams: 07/07/21 08:56 07/07/21 08:56 Labs: Lab Results 07/07/21 07/07/21 07/07/21 Range/Units 08:56 08:56 08:56 WBC 10.9 H (4.8-10.8) X10*3/uL RBC 4.70 (4.20-5.50) X10*6/uL Hgb 13.0 (12.0-16.0) g/dl Hct 38.5 (37.0-47.0) % MCV 81.9 (80.0-98.0) fL MCH 27.7 (27.0-33.0) pg MCHC 33.8 (31.0-35.0) g/dl RDW 12.3 (11.0-16.0) % Plt Count 261 (160-400) X10*3/uL MPV 10.6 (9.4-12.3) fL Immature Gran % (Auto) 0.3 (0.0-0.4) % Neut % (Auto) 68.7 (45-73) % Lymph % (Auto) 20.5 (20-40) % [place] % (Auto) 9.4 (2-11) % Eos % (Auto) 0.7 (0-4) % Baso % (Auto) 0.4 (0-2) % Lymph # (Auto) 2.2 (1.2-4.9) X10*3/uL [place] # (Auto) 1.0 (0.1-1.2) X10*3/uL Eos # (Auto) 0.1 (0.0-0.4) X10*3/uL Baso # (Auto) 0.0 (0.0-0.2) X10*3/uL Abs Immat Gran (auto) 0.03 (0.00-0.03) X10*3/uL Absolute Neuts (auto) 7.5 (2.0-8.3) x10*3/uL Absolute Nucleated RBC 0.000 (0.0-0.012) X10*3/uL Nucleated RBC % (auto) 0.0 (0.0-0.2) /100WBC Sodium 137 (135-145) mmol/L Potassium 3.8 (3.3-5.1) mmol/L Chloride 103 (96-108) mmol/L Carbon Dioxide 24 (22-29) mmol/L Anion Gap 14 (12-20) BUN 5 L (9-16) mg/dL Creatinine 0.75 (0.5-1.4) mg/dL Estim Creat Clear Calc 114.8 Estimated GFR > 60 Random Glucose 109 (60-115) mg/dL Calcium 9.4 (8.4-10.2) mg/dL Magnesium 2.0 (1.6-2.6) mg/dL Total Bilirubin 0.7 (0.0-1.0) mg/dL Direct Bilirubin 0.3 (0.0-0.5) mg/dL AST 43 H D (5-31) U/L ALT 34 H (0-31) U/L Alkaline Phosphatase 62 (39-117) U/L Total Protein 7.7 (6.5-8.0) g/dL Albumin 4.0 (3.5-5.0) g/dL Lipase 11 (8-78) U/L Beta HCG, Quant < 2 mIU/mL Urine Color Urine Appearance Urine pH (5.0-8.0) Ur Specific [place] (1.005-1.025) Urine Protein (NEG-TRACE) MG/DL Urine Glucose (UA) (NEG) MG/DL Urine Ketones (NEG) MG/DL Urine Blood (NEG) Urine Nitrite (NEG) Ur Leukocyte Esterase (NEG) Urine RBC (0) /HPF Urine WBC (0-4) /HPF Ur Squamous Epith Cells /LPF Urine Bacteria /LPF Urine Mucus /LPF Urine Fentanyl Screen (Not Detect) Ur Barbiturates Screen (Not Detect) Ur Phencyclidine Scrn (Not Detect) Ur Amphetamines Screen (Not Detect) U Benzodiazepines Scrn (Not Detect) Urine Cocaine Screen (Not Detect) U Marijuana (THC) Screen (Not Detect) COVID-19 (SHANTE) Negative (Negative) COVID-19 Clin Com See Note 07/07/21 07/07/21 Range/Units 09:51 09:51 WBC (4.8-10.8) X10*3/uL RBC (4.20-5.50) X10*6/uL Hgb (12.0-16.0) g/dl Hct (37.0-47.0) % MCV (80.0-98.0) fL MCH (27.0-33.0) pg MCHC (31.0-35.0) g/dl RDW (11.0-16.0) % Plt Count (160-400) X10*3/uL MPV (9.4-12.3) fL Immature Gran % (Auto) (0.0-0.4) % Neut % (Auto) (45-73) % Lymph % (Auto) (20-40) % [place] % (Auto) (2-11) % Eos % (Auto) (0-4) % Baso % (Auto) (0-2) % Lymph # (Auto) (1.2-4.9) X10*3/uL [place] # (Auto) (0.1-1.2) X10*3/uL Eos # (Auto) (0.0-0.4) X10*3/uL Baso # (Auto) (0.0-0.2) X10*3/uL Abs Immat Gran (auto) (0.00-0.03) X10*3/uL Absolute Neuts (auto) (2.0-8.3) x10*3/uL Absolute Nucleated RBC (0.0-0.012) X10*3/uL Nucleated RBC % (auto) (0.0-0.2) /100WBC Sodium (135-145) mmol/L Potassium (3.3-5.1) mmol/L Chloride (96-108) mmol/L Carbon Dioxide (22-29) mmol/L Anion Gap (12-20) BUN (9-16) mg/dL Creatinine (0.5-1.4) mg/dL Estim Creat Clear Calc Estimated GFR Random Glucose (60-115) mg/dL Calcium (8.4-10.2) mg/dL Magnesium (1.6-2.6) mg/dL Total Bilirubin (0.0-1.0) mg/dL Direct Bilirubin (0.0-0.5) mg/dL AST (5-31) U/L ALT (0-31) U/L Alkaline Phosphatase (39-117) U/L Total Protein (6.5-8.0) g/dL Albumin (3.5-5.0) g/dL Lipase (8-78) U/L Beta HCG, Quant mIU/mL Urine Color YELLOW Urine Appearance CLEAR Urine pH 7.5 (5.0-8.0) Ur Specific [place] 1.015 (1.005-1.025) Urine Protein TRACE (NEG-TRACE) MG/DL Urine Glucose (UA) NEG (NEG) MG/DL Urine Ketones 5 (NEG) MG/DL Urine Blood 3+ H (NEG) Urine Nitrite NEG (NEG) Ur Leukocyte Esterase TRACE H (NEG) Urine RBC 10-14 H (0) /HPF Urine WBC 1-4 (0-4) /HPF Ur Squamous Epith Cells TRACE /LPF Urine Bacteria NONE /LPF Urine Mucus TRACE /LPF Urine Fentanyl Screen POSITIVE H (Not Detect) Ur Barbiturates Screen Not Detected (Not Detect) Ur Phencyclidine Scrn Not Detected (Not Detect) Ur Amphetamines Screen Not Detected (Not Detect) U Benzodiazepines Scrn Not Detected (Not Detect) Urine Cocaine Screen Not Detected (Not Detect) U Marijuana (THC) Screen POSITIVE H (Not Detect) COVID-19 (SHANTE) (Negative) COVID-19 Clin Com ECG Data Attestation: I personally reviewed and interpreted this ECG as follows: ECG interpretation date: 07/07/21 ECG interpretation time: 09:10 Interpretation: Rate: 55 Rhythm: sinus bradycardia [place]: normal Normal P waves. Normal EV. Normal QRS complex. ST T wave : normal no CARLIE qTC: normal prior studies: no acute ischemia The study has been interpreted contemporaneously by me. . Discharge Plan Discharge Clinical Impression: Cyclic vomiting syndrome Patient Disposition: Home, Self-Care Instructions: Acute Nausea and Vomiting (ED) Additional Instructions: return to ED for any worsening symptoms or concerns medically cleared for detox Prescriptions: New ondansetron 4 mg tablet,disintegrating 4 mg PO Q8H PRN (Reason: nausea and vomiting) Qty: 20 0RF No Action sucralfate 100 mg/mL suspension 10 ml PO BEDTIME Qty: 400 3RF cholecalciferol (vitamin D3) 1,250 mcg (50,000 unit) capsule 1,250 mcg PO QWEEK Qty: 13 0RF amitriptyline 25 mg tablet 1 tab PO BEDTIME 0RF ondansetron HCl 4 mg tablet 4 mg PO Q8H 0RF simethicone [Gas Relief (simethicone)] 180 mg capsule 180 mg PO BID PRN (Reason: abdominal distention) Qty: 60 1RF capsaicin 0.1 % cream 1 appl topical BID Qty: 42.5 0RF Rx Instructions: do not wash area for at least 30 min after application pantoprazole 40 mg tablet,delayed release (DR/EC) 40 mg PO BID Qty: 60 4RF
[2021-07-07 08:29] VITALS: BP 140/93; PULSE 77; RESP 16; TEMP 37; O2SAT 96; BMI 36.6
[2021-07-07 08:35] VITALS: BP 140/93; PULSE 77; RESP 14; TEMP 37; O2SAT 96
--- NOTE | 2021-07-07 08:51 | ECG_ITS ---
Test Reason : Nausea/vomiting Blood Pressure : / mmHG Vent. Rate : 055 BPM Atrial Rate : 055 BPM P-R Int : 134 ms QRS Dur : 078 ms QT Int : 442 ms P-R-T Axes : 030 018 005 degrees QTc Int : 422 ms Sinus bradycardia Otherwise normal ECG When compared with ECG of 13-FEB-2021 12:53, T wave amplitude has decreased in Anterior leads Referred By: Krystle Banks Electronically Signed By:GUY CHEUNG
[2021-07-07 09:01] LABS: MANUAL DIFF FLAG NO
[2021-07-07] MEDS: Metoclopramide HCl 10 MG/2 ML VIAL IVPUSH (09:04)
[2021-07-07] MEDS: diphenhydrAMINE HCL 50 MG/ML VIAL 25 MG IVPUSH (09:04)
[2021-07-07] MEDS: 0.9 % Sodium Chloride 1,000 ML 999 ML IVCONT (09:04)
[2021-07-07 09:10] LABS: Basophils Percent Auto 0.4 % (0-2); Eosinophils Absolute Auto 0.1 X10*3/uL (0.0-0.4); Eosinophils Percent Auto 0.7 % (0-4); Hematocrit 38.5 % (37.0-47.0); Imm Gran Abs Auto 0.03 X10*3/uL (0.00-0.03); Imm Gran Pct Auto 0.3 % (0.0-0.4); Lymphocytes Absolute Auto 2.2 X10*3/uL (1.2-4.9); Lymphocytes Percent Auto 20.5 % (20-40); Mean Corpuscular HGB Conc 33.8 g/dl (31.0-35.0); Mean Corpuscular Hemoglobin 27.7 pg (27.0-33.0); Mean Corpuscular Volume 81.9 fL (80.0-98.0); Mean Platelet Volume 10.6 fL (9.4-12.3); Monocytes Percent Auto 9.4 % (2-11); Neutrophils Absolute Auto 7.5 x10*3/uL (2.0-8.3); Neutrophils Percent Auto 68.7 % (45-73); Platelet Count 261 X10*3/uL (160-400); Red Cell Distribution Width 12.3 % (11.0-16.0); White Blood Count 10.9 X10*3/uL (4.8-10.8)
[2021-07-07 09:15] LABS: COVID-19 Test Negative (Negative); IDNOW Serial# 16C4AD1C
[2021-07-07 09:26] LABS: HCG Quantitative < 2 mIU/mL
[2021-07-07 09:50] LABS: Alanine Aminotransferase 34 U/L (0-31); Alkaline Phosphatase 62 U/L (39-117); Anion Gap 14 (12-20); Aspartate Amino Transferase 43 U/L (5-31); Bilirubin Direct 0.3 mg/dL (0.0-0.5); Bilirubin Total 0.7 mg/dL (0.0-1.0); Blood Urea Nitrogen 5 mg/dL (9-16); Calcium 9.4 mg/dL (8.4-10.2); Carbon Dioxide 24 mmol/L (22-29); Chloride 103 mmol/L (96-108); Creatinine Clr Calc Pharmacy 114.8; Estimated Glomerular Filt Rate > 60; Glucose Random 109 mg/dL (60-115); Lipase 11 U/L (8-78); Potassium 3.8 mmol/L (3.3-5.1); Sodium 137 mmol/L (135-145); Total Protein 7.7 g/dL (6.5-8.0)
[2021-07-07 10:00] LABS: Appearance Urine CLEAR; Color Urine YELLOW; Glucose Urine UA NEG (NEG); Leukocyte Esterase Urine TRACE (NEG); Nitrite Urine NEG (NEG); PH 7.5 (5.0-8.0); Specific Gravity - Urine 1.015 (1.005-1.025); UACC Culture Trigger NO; Urine Blood 3+ (NEG); Urine Ketones 5 MG/DL (NEG); Urine Protein TRACE MG/DL (NEG-TRACE)
[2021-07-07 10:17] LABS: Mucus Urine TRACE /LPF; Squamous Epithelial Cell Urine TRACE /LPF
[2021-07-07 10:37] LABS: Amphetamine Screen Urine Not Detected (Not Detect); Barbiturates, Urine Not Detected (Not Detect); Benzodiazepines Screen Urine Not Detected (Not Detect); Cannabinoid Screen Urine POSITIVE (Not Detect); Cocaine Screen Urine Not Detected (Not Detect); Fentanyl, urine POSITIVE (Not Detect); Opiate Screen Urine POSITIVE (Not Detect); Phencyclidine Screen Urine Not Detected (Not Detect)
--- NOTE | 2021-07-07 10:56 | MHC.RECOVSUP ---
Recovery Support note: Patient is a 31 year old Bermudian speaking female who presented to [facility] ED from [facility]. Patient is medically cleared and interested in returning to [facility]. [facility] reports they do have a female bed available and they are willing to take patient back. Patient information faxed for review. Patient confirms her interest in returning to detox. 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
--- NOTE | 2021-07-07 12:10 | MHC.RECOVSUP ---
Recovery Support note: Patient accepted to [facility] for 1415. Mother to transport patient. Discussed case with ED physician.
== END 2021-07-07 12:43 | disposition home or self-care (01) ==
PROVIDERS: Emergency Provider Emergency Medicine; PCP Nurse Practitioner Family
DX: R11.15 Cyclical vomiting syndrome unrelated to migraine (principal); F11.20 Opioid dependence, uncomplicated; J45.909 Unspecified asthma, uncomplicated; E66.9 Obesity, unspecified; Z68.36 Body mass index [BMI] 36.0-36.9, adult; Z20.822 Contact with and (suspected) exposure to COVID-19
CPT/HCPCS: 80048; 80076; 80307; 81001; 81003; 83690; 83735; 84702; 85025; 87635; 93005; 96361; 96374; 96375; 99284; J1200; J2765

== ENCOUNTER 2021-07-09 14:04 | Emergency (ER) | payer MEDICAID, SELFPAY | END 2021-07-09 16:00 | disposition left against medical advice (07) | PROVIDERS: Emergency Provider Emergency Medicine | DX: R11.10 Vomiting, unspecified (principal); R10.9 Unspecified abdominal pain ==

== ENCOUNTER 2021-07-10 08:12 | Emergency (ER) | payer MEDICAID, SELFPAY ==
[2021-07-10 08:54] VITALS: BP 158/104; PULSE 100; RESP 19; TEMP 36.1; O2SAT 98; BMI 36.6
== END 2021-07-10 14:30 | disposition left against medical advice (07) ==
PROVIDERS: Emergency Provider Emergency Medicine; PCP Nurse Practitioner Family
DX: R11.10 Vomiting, unspecified (principal); R10.9 Unspecified abdominal pain
CPT/HCPCS: 99281; 99282

== ENCOUNTER → 2021-08-22 08:23 | Outpatient (BNVA) | payer MEDICAID, SELFPAY | PROVIDERS: PCP Nurse Practitioner Family; Visit Provider Nurse Practitioner Family | DX: K21.9 Gastro-esophageal reflux disease without esophagitis (principal); R11.15 Cyclical vomiting syndrome unrelated to migraine; R11.0 Nausea; R14.0 Abdominal distension (gaseous); R10.13 Epigastric pain; Z79.899 Other long term (current) drug therapy | CPT/HCPCS: 99212 ==

== ENCOUNTER 2022-01-24 12:18 | Outpatient (REF) | payer MEDICAID, SELFPAY ==
[2022-01-24 14:50] LABS: Alanine Aminotransferase 20 U/L (0-31); Albumin Level 4.8 g/dL (3.5-5.0); Alkaline Phosphatase 79 U/L (39-117); Aspartate Amino Transferase 30 U/L (5-31); Bilirubin Direct 0.3 mg/dL (0.0-0.5); Bilirubin Total 0.7 mg/dL (0.0-1.0); Lipase 25 U/L (8-78)
== END 2022-01-24 12:19 | disposition home or self-care (01) ==
LOC: HO.LAB 12:18
PROVIDERS: Visit Provider Nurse Practitioner Family
DX: K58.2 Mixed irritable bowel syndrome (principal); K21.9 Gastro-esophageal reflux disease without esophagitis; R10.13 Epigastric pain; R14.0 Abdominal distension (gaseous); R11.0 Nausea; N94.6 Dysmenorrhea, unspecified; R11.15 Cyclical vomiting syndrome unrelated to migraine; R10.9 Unspecified abdominal pain; R79.89 Other specified abnormal findings of blood chemistry
CPT/HCPCS: 36415; 80076; 83690; 99212

== ENCOUNTER 2024-03-24 11:20 | Outpatient (REF) | payer MEDICAID, SELFPAY ==
[2024-03-24 13:08] LABS: MANUAL DIFF FLAG NO
[2024-03-24 13:23] LABS: Basophils Percent Auto 0.3 % (0-2); Eosinophils Absolute Auto 0.2 X10*3/uL (0.0-0.4); Eosinophils Percent Auto 1.9 % (0-4); Hematocrit 40.5 % (37.0-47.0); Imm Gran Abs Auto 0.07 X10*3/uL (0.00-0.03); Imm Gran Pct Auto 0.6 % (0.0-0.4); Lymphocytes Absolute Auto 2.5 X10*3/uL (1.2-4.9); Lymphocytes Percent Auto 22.9 % (20-40); Mean Corpuscular HGB Conc 32.1 g/dl (31.0-35.0); Mean Corpuscular Volume 84.2 fL (80.0-98.0); Mean Platelet Volume 10.6 fL (9.4-12.3); Monocytes Percent Auto 9.3 % (2-11); Neutrophils Absolute Auto 7.2 x10*3/uL (2.0-8.3); Platelet Count 301 X10*3/uL (160-400); Red Blood Count 4.81 X10*6/uL (4.20-5.50); Red Cell Distribution Width 13.3 % (11.0-16.0)
--- OUTSIDE RECORDS SUMMARY | 2024-03-24 13:26 | XMS_ITS | Data Portability ---
Author Organization [facility] [place] [facility], [facility] Address [address] [place] [address] Assessment No assessment recorded. Plan of Treatment Reminders Order Date Submit Date Provider Last Modified By Organization Details Last Modified Time Details Appointments None recorded. Lab None recorded. Referral None recorded. Procedures None recorded. Surgeries None recorded. Imaging MRI, forearm, w/o contrast - ? MASS, CALL [phone] ASK FOR LENIN NURSE NURSE [facility], PT ON [facility] 2023 024 [email or web address] [id number] [facility] [place], [address] [place] [address], [address], 10:18:35 Medication Orders None recorded. Patient TargetsNo targets recorded. Patient InstructionsNo instructions recorded. Reason for Referral None Reported. Results Created Date Observation Date Name Description Value Unit Range Abnormal Flag Note LastModifiedBy Organization Detail LastModifiedTime 12/26/19 24 12/26/2023 MRI, forea rm, w/wo contr ast No observ ation record ed. [email or web address] [facility] [address], [address], 12/29/2023 15:30:54 Result Notes None recorded. Procedures Surgical History None recorded. Imaging Results Imaging Date Name Status LastModified by Organiz ation Details LastModified Time 12/26/2023 MRI, forearm, w/wo contrast completed [email or web address] [facility] [place] [address], [address], 12/29/2023 15:30:54 Procedure Notes None recorded. Medical Equipment None Reported. Allergies No known drug allergies Medications Name Sig Start Date Stop Date Status Note LastModified by Organization Details LastModified Time omeprazole active Not Available Not Av ailable Not Available Claritin active Not Available Not Avai lable Not Available Vitals Date Recorded Body height Body mass index (BMI) Body weight Provider Name and Address Organization Details Last Updated DateTime 12/12/2023 157.48 cm 43.9 kg/m2 803320.17 rainer [facility] 12/12/2023 14:41:08 Date Recorded Body height Body mass index (BMI) Body weight Provider Name and Address Organization Details Last Updated DateTime 02/02/2024 157.48 cm 43.9 kg/m2 245556.17 rainer [facility] 02/02/2024 13:08:21 Social History None recorded. Functional Status None recorded. Mental Status None recorded. Family History Nothing Reported. Medical History No medical history recorded. Gynecological HistoryNo gynecological history recorded. Obstetrics History GPAL:G 0 P 0 0 0 0 Past Encounters Encounter ID Performer Location Encounter Start Date Encounter Closed Date Diagnosis/Indication Diagnosis SNOMED-CT Code Diagnosis ICD10 Code Diagnosis Note [id number] Harvey Stanley MD [facility] [address] [place] [address] 12/12/2023 13:49:18 12/30/2023 12:56:03 Pain of right forearm 912976372 M79.631 Mass of forearm 17625107 6 R22.[id number] MD [facility] [address] [facility] [place] [address] 02/02/2024 12:40:38 03/07/2024 08:17:31 Pain of right forearm 743210191 M79.631 Health Concerns Section Related Observation LastModified by Organization Detai ls LastModified Time None Recorded Concern Status LastModified by Organization Details LastModified Time None Recorded Advance Directives Directive None Recorded Payers Encounter Date Sequence Insurance Name Policy Number Policy Duenas Covered Member ID Duenas Member ID Guarantor Name 12/12/2023 1 [place] [employer] [place]ICAID[place] Franchesca Razo [id number] Franchesca Razo 02/02/2024 1 [place] Franchesca Razo [id number] Franchesca Razo Notes Date Note Type Note Provider Name and Address Organization Details Recorded Time 12/12/2023 text/html Diagnosis: Soft tissue swelling right [id number] female who presents with intermittent severe swelling of her right forearm. This develops out history of trauma or other inciting event. She has some tingling in her forearm but this does not radiate to her digits. She does find her form to be painful and tender when this happens.Past family, medical, social history and review of systems has been reviewed, updated and is located in the patient? s chart.Examination: Healthy appearing patient in no apparent distress. Alert and oriented. There are region of swelling over the dorsal aspect of right forearm. This area is not tense but it is very tender. She moves her elbow and wrist freely. Provocative testing these joints reveals no instability. No atrophy in either upper extremity. Brisk capillary refill in all digitsPlan: The patient and I discussed her situation at length. I have recommended we obtain an MRI of her form to determine if she has a mass. She will follow up with me after the study has been obtained. Harvey Stanley MD [address] [facility] [address], [place], [address], [facility] 12/17/2023 17:35:28 02/02/2024 text/html Diagnosis: Forea rm swelling resolvedThe patient returns our request. Since her last visit she underwent MRI of her right forearm. She reports that she has not had swelling of her form since she last saw us.Past family, medical, social history and review of systems has been reviewed, updated and is located in the patient? s chart.Examination: Healthy appearing patient in no apparent distress. Alert and oriented. She has symmetric range of motion of her bilateral elbows, forearms, wrists and digits. Provocative testing of elbows and wrists reveal no instability. No atrophy in either upper extremity. Brisk capillary refill in all digitsI independently reviewed an MRI of the patient's right forearm obtained an outside institution. There is a small volar ganglion cyst at the radial carpal joint.Plan: The patient and I discussed her situation at length. Her swelling has resolved and the MRI reveals no concerning findings. She is discharged from care. She will follow up at her discretion. Harvey Stanley MD [address], [place], [address], [facility] 02/02/2024 14:09:26 OBGyn Episode No OBEpisode recorded.
[2024-03-24 13:28] LABS: Estimated Average Glucose 114 mg/dL; Hemoglobin A1c % 5.6 % (<6.0); Total Hemoglobin (HGBA1C) 3349.1036 umol/L
[2024-03-24 13:32] LABS: Alanine Aminotransferase 47 U/L (0-31); Alkaline Phosphatase 82 U/L (39-117); Anion Gap 5 (12-20); Aspartate Amino Transferase 36 U/L (5-31); Bilirubin Total 0.3 mg/dL (0.0-1.0); Blood Urea Nitrogen 13 mg/dL (9-16); Calcium 8.8 mg/dL (8.4-10.2); Carbon Dioxide 25 mmol/L (22-29); Chloride 113 mmol/L (96-108); Cholesterol 151 mg/dL (<200); Estimated Glomerular Filt Rate > 60; Glucose Random 97 mg/dL (60-115); HDL Cholesterol 37 mg/dL (>40); Iron 69 mcg/dL (30-160); LDL Cholesterol Calculated 83 mg/dL (<100); Percent Iron Saturation 24 % (15-50); Sodium 139 mmol/L (135-145); Total Iron Binding Capacity 289 mcg/dL (228-428); Triglycerides 155 mg/dL (<150); Unsaturated Iron Binding 220 ug/dL
[2024-03-24 13:45] LABS: Syphilis Screen Nonreactive (Nonreactive)
[2024-03-24 13:46] LABS: HBS Num1 6.03 mIU/mL (0-7.99); HBc Num1 0.71 S/CO (0.00-0.79); HBsAGNum1 0.27 S/CO (0.00-0.99); HIV AB/AG Nonreactive (Nonreactive); HIV Num 1 0.04 S/CO (0.00-0.99); Hepatitis B Core Antibody Nonreactive (Nonreactive); Hepatitis B Surface Antigen Negative (Negative); ~Hepatitis B Surface Antibody NONREACTIVE (Nonreactive); ~Hepatitis C Antibody Nonreactive (Nonreactive)
[2024-03-24 13:49] LABS: TSH reflex Free T4 8.42 uIU/mL (0.32-4.0); Vitamin D 25-OH Total 10.7 ng/mL (>30)
[2024-03-24 14:32] LABS: Free T4 (Free Thyroxine) 0.85 ng/dL (0.71-1.85)
[2024-03-24 21:29] LABS: Bacterial Vaginosis PCR POSITIVE (Negative); Candida Group PCR NOT DETECTED (Not Detect); Candida glab krusei PCR NOT DETECTED (Not Detect); Trichomonas vaginalis PCR NOT DETECTED (Not Detect)
== END 2024-03-24 11:21 | disposition home or self-care (01) ==
LOC: HO.HHCL 11:20
PROVIDERS: Visit Provider Nurse Practitioner
DX: E66.813 Obesity, class 3 (principal); E66.01 Morbid (severe) obesity due to excess calories; Z68.41 Body mass index [BMI] 40.0-44.9, adult; Z13.9 Encounter for screening, unspecified; Z11.3 Encounter for screening for infections with a predominantly sexual mode of transmission; N92.6 Irregular menstruation, unspecified; Z11.59 Encounter for screening for other viral diseases; Z72.89 Other problems related to lifestyle
CPT/HCPCS: 36415; 80053; 80061; 81515; 82306; 83036; 83540; 84439; 84443; 85025; 86704; 86706; 86780; 86803; 87340; 87389

== ENCOUNTER 2025-01-20 11:39 | Outpatient (REF) | payer MEDICAID, SELFPAY ==
--- OUTSIDE RECORDS SUMMARY | 2025-01-20 10:15 | XMS_ITS | Encounter Summary ---
Author Organization [employer] [facility] Address [address] [place] [address] [address] [address] Care Team Providers Care Tax Staff Accountant Name Role Phone Gali Pollack NP Primary Care Provider [phone] Reason for Referral * Imaging (Urgent) - Authorized Specialty Diagnoses / Procedures Referred By Contac t Referred To Contact Radiology Diagnoses Abnormal uterine bleeding (AUB) Procedures US Pelvis Transvaginal Gali Pollack NP [address] [place] [address] Phone: tel: fax: [address] Phone: tel: fax: Referral ID Status Reason Start Date Expiration Date V isits Requested Visits Authorized [id number] Authorized 01/20/2025 01/20/2026 1 1 * Imaging (Urgent) - Authorized Specialty Diagnoses / Procedures Referred By Contac t Referred To Contact Radiology Diagnoses Abnormal uterine bleeding (AUB) Procedures Us Pelvis complete Gali Pollack NP [address] [place] [address] Phone: tel: fax: [address] Phone: tel: fax: Referral ID Status Reason Start Date Expiration Date V isits Requested Visits Authorized [id number] Authorized 01/20/2025 01/20/2026 1 1 Reason for Visit * Reason Comments Follow-up Encounter Details Date Type Department Care Team (Latest Contact Info) Description 01/20/2025 10:15 AM EST Office Visit [facility] [address] [place] [address] Gali Pollack NP [address] [place] [address] Gastroesophageal reflux disease without esophagitis (Primary Dx); Fatty liver; Abnormal uterine bleeding (AUB) Social History Tobacco Use Types Packs/Day Years Used Date Smoking Tobacco: Never Passive Smoke Exposure: Never Smokeless Tobacco: Never Alcohol Use Standard Drinks/Week Comments Not Currently 3 (1 standard drink = 0.6 oz pure alcohol) about once every 8 months or so Alcohol Answer Date Recorded How often do you have a drink containing alcohol ? 1 03/24/2024 How many drinks containing a lcohol do you have on a typical day when you are drinking? 1 03/24/2024 How often do you have six or more drinks on one occasion? 0 03/24/2024 Depression Answer Date Recorded Patient Health Questionnaire-9 Score 9 01/20/2025 Patient Health Questionnaire-9 Score 9 01/20/2025 Last PHQ-9: Questionnaire Data Not on file 1 03/22/2024 Housing Stability Answer Date Recorded What is your housing situation today? I do not have housing (Staying with others, in a hotel, in a fdc, living outside on the street, on a beach, in a car, or in a park 01/19/[address] you li ve. Do you have problems with any of the following? None of the above 01/19/2024 Food Insecurity Answer Date Recorded Within the past 12 months, y ou worried that your food would run out before you got money to buy more: Never True 01/19/2024 Within the past 12 months,th e food you bought just didn't last and you didn't have enough money to get more: Never True 01/2024 Transportation Answer Date Recorded In the past 12 months, has l ack of transportation kept you from medical appts, meetings, work or from getting things needed for daily living? No 01/19/2024 Utilities Answer Date Recorded In the past 12 months, has t he electric, gas, oil or water company threatened to shut off services in your home? No 01/19/2024 Depression Answer Date Recorded Patient Health Questionnaire-2 Score 1 01/20/2025 Internet Access Answer Date Recorded Internet Access Q1 Yes 01/19/2024 Internet Access Q2 Not on file 01/19/2024 Comments No Sex and Gender Information Value Date Recorded Sex Assigned at Female 01/07/2022 10:37 AM EDT Legal Sex Female 10:37 AM EDT Gender Identity Female 01/07/2022 10:37 AM EDT Sexual Orientation Straight 01/19/2024 10 :40 AM EST documented as of this encounter Last Filed Vital Signs Vital Sign Reading Time Taken Comments Blood Pressure 122/82 01/20/2025 10:51 AM EST Pulse 73 01/20/2025 10:51 AM EST Temperature 37.2 C (99 F) 01/20/2025 10:51 AM EST Respiratory Rate 17 01/20/2025 10:5 1 AM EST Oxygen Saturation 97% 01/20/2025 10: 51 AM EST Inhaled Oxygen Concentration - - Weight 99.2 kg (218 lb 12.8 oz) 025 10:51 AM EST Height 162.6 cm (5' 4 ) 01/20/2025 10:5 1 AM EST Body Mass Index 37.56 01/20/2025 10:51 AM EST documented in this encounter Functional Status * Over the past 2 weeks, how often have you been bothered by any of the following problems? Question Answer Date of Assessment Author Patient Health Questionnaire -2 Score 1 01/20/2025 11:09 AM EST Ludin Bravo MA * Little interest or pleasure in doing things Answer Date of Assessment Author Not at all 01/20/2025 11:09 AM EST Ludin Bravo MA * Feeling down, depressed, or hopeless Answer Date of Assessment Author Several days 01/20/2025 11:09 AM EST Ludin Bravo MA * Trouble falling or staying asleep, or sleeping too much Answer Date of Assessment Author More than half the days 01/20/2025 11:09 AM EST Ludin Bravo MA * Feeling tired or having little energy Answer Date of Assessment Author Several days 01/20/2025 11:09 AM Ludin Bustillo MA * Poor appetite or overeating Answer Date of Assessment Author Nearly every day 01/20/2025 11:09 AM Ludin Bustillo MA * Feeling bad about yourself - or that you are a failure or have let yourself or your family down Answer Date of Assessment Author Several days 01/20/2025 11:09 AM Ludin Bustillo MA * Trouble concentrating on things, such as reading the newspaper or watching television Answer Date of Assessment Author Several days 01/20/2025 11:09 AM Ludin Bustillo MA * Moving or speaking so slowly that other people could have noticed? Or the opposite - being so fidgety or restless that you have been moving around a lot more than usual. Answer Date of Assessment Author Not at all 01/20/2025 11:09 AM Ludin Bustillo MA * Thoughts that you would be better off or hurting yourself in some way Answer Date of Assessment Author Not at all 01/20/2025 11:09 AM Ludin Bustillo MA * Patient Health Questionnaire-9 Score Answer Date of Assessment Author 9 01/20/2025 11:09 AM Ludin Bustillo MA * Over the last 2 weeks, how often have you been bothered by any of the following problems? Question Answer Date of Assessment Author Feeling nervous, anxious, or on edge 1 01/20/2025 11:08 AM Ludin Bustillo MA Not being able to stop or co ntrol worrying 1 01/20/2025 11:08 AM Ludin Bustillo MA Worrying too much about diff erent things 1 01/20/2025 11:08 AM Ludin Bustillo MA Trouble relaxing 1 01/20/2025 11:08 AM Ludin Bustillo MA Being so restless that it is hard to sit still 1 01/20/2025 11:08 AM Ludin Bustillo MA Becoming easily annoyed or irritable 2 01/20/2025 11:08 AM EST Ludin Bravo MA Feeling afraid as if somethi ng awful might happen 1 01/20/2025 11:08 AM Ludin Bustillo MA TRINI-7 Total Score 8 01/20/2025 11:08 AM Ludin Bustillo MA * How difficult have these problems made it for you to do your work, take care of things at home, or get along with other people? Answer Date of Assessment Author Somewhat difficult 01/20/2025 11:09 AM EST Ludin Bonilla MA documented as of this encounter Miscellaneous Notes * Assessment & Plan Note - Gali Pollack NP - 01/20/2025 10:15 AM ESTAssociated Problem(s): Gastroesophageal reflux disease Orders: Helicobacter pylori Antigen, EIA, Stool; Future documented in this encounter Plan of Treatment Upcoming Encounters Date Type Department Care Team (Late st Contact Info) Description 02/24/2025 11:00 AM EST Office Visit [facility] [address] [place] [address] Gali Pollack NP [address] [place] [address] Scheduled Orders Name Type Priority Associated Diagnoses Orde r Schedule Chlamydia/N. Gonorrhoeae, PCR, Urine Lab Routine Abnormal uterine bleeding (AUB) Ordered: 01/20/2025 Us Pelvis complete Imaging Urgent Abnormal uterine bleeding (AUB) Expected: 01/20/2025, Expires: 01/20/2026 US Pelvis Transvaginal Imaging Urgent Abnormal uterine bleeding (AUB) Expected: 01/20/2025, Expires: 01/20/2026 Helicobacter pylori Antigen, EIA, Stool Lab Routine Gastroesophageal reflux disease without esophagitis Expected: 01/20/2025 (Approximate), Expires: 01/20/2026 documented as of this encounter Procedures Procedure Name Priority Date/Time Associated Diagnosis Comments POCT , URINE Routine 01/20/2025 12:06 PM EST Abnormal uterine bleeding (AUB) TSH W/REFLEX TO FT4 Routine 01/20/2025 1 1:49 AM EST Abnormal uterine bleeding (AUB) IRON AND TOTAL IRON BINDING CAPACITY Routine 01/20/2025 11:49 AM EST Abnormal uterine bleeding (AUB) documented in this encounter Results * POCT , urine manually resulted (01/20/2025 12:06 PM EST) Preg Test, Ur Negative Negative, Indeterminate, None Detected, Invalid, Specimen unsatisfactory for evaluation, Weakly Positive, 2+ QC Media Lot # [id number] Lot# Expiration Date Urine 01/20/2025 12:0 6 PM EST us Gali Pollack NP POINT OF CARE TEST ENTER/EDIT O RDERABLES Final Result * TSH W/Reflex to FT4 (01/20/2025 11:49 AM EST) TSH reflex Free T4 1.55 0.32 - 4.0 uIU/mL [facility] Blood Venous blood specimen / Unknown 01/20/2025 11:49 AM EST 01/20/2025 1:04 PM EST us Gali Pollack NP LAB BLOOD ORDERABLES Final Resu lt [facility] [address] [place] [phone] * Iron And Total Iron Binding Capacity (01/20/2025 11:49 AM EST) Iron 67 30 - 160 mcg/dL [facility] Total Iron Binding Capacity 265 228 - 428 mcg/dL [facility] Percent Iron Saturation 25 15 - 50 % [facility] Unsaturated Iron Binding 198 ug/dL [facility] Blood Venous blood specimen / Unknown 01/20/2025 11:49 AM EST 01/20/2025 1:04 PM EST us Gali Pollack NP LAB BLOOD ORDERABLES Final Resu lt [facility] [address] [place] [address] [phone] documented in this encounter Visit Diagnoses Diagnosis Gastroesophageal reflux disease without esophagitis- Primary Esophageal reflux Fatty liver Other chronic nonalcoholic liver disease Abnormal uterine bleeding (AUB) documented in this encounter Additional Health Concerns Assessment Noted Time PHQ-9 Depression Total Score: 9 01/21/20 25 11:09 AM EST documented as of this encounter Care Teams Tax Staff Accountant Relationship Specialty Start Date End Date Gali Pollack NP [address] [place] [address] PCP - General Family Medicine 04/14/23 documented as of this encounter
[2025-01-20 14:32] LABS: Iron 67 mcg/dL (30-160); Percent Iron Saturation 25 % (15-50); Total Iron Binding Capacity 265 mcg/dL (228-428); Unsaturated Iron Binding 198 ug/dL
--- OUTSIDE RECORDS SUMMARY | 2025-01-20 14:49 | XMS_ITS | Data Portability ---
Author Organization [facility] Address [address] [place] [address] Assessment No assessment recorded. Plan of Treatment Reminders Order Date Submit Date Provider Last Modified By Organization Details Last Modified Time Details Appointments None recorded. Lab None recorded. Referral None recorded. Procedures None recorded. Surgeries None recorded. Imaging MRI, forearm, w/o contrast - ? [place], CALL [phone] ASK FOR LENIN NURSE CHEMIC MANGLER, PT ON [facility] 2023 024 [email or web address] [facility], [address] [place] [address], [phone], 10:18:35 Medication Orders None recorded. Patient TargetsNo targets recorded. Patient InstructionsNo instructions recorded. Reason for Referral None Reported. Results Created Date Observation Date Name Description Value Unit Range Abnormal Flag Note LastModifiedBy Organization Detail LastModifiedTime 12/26/19 24 12/26/2023 MRI, forea rm, w/wo contr ast No observ ation record ed. [email or web address], [address], 12/29/2023 15:30:54 Result Notes None recorded. Medical Equipment None Reported. [...] Updated DateTime 12/12/2023 157.48 cm 43.9 kg/m2 131238.17 g AMOR GOMEZ [facility] 12/12/2023 14:41:08 Date Recorded Body height Body mass index (BMI) Body weight Provider Name and Address Organization Details Last Updated DateTime 02/02/2024 157.48 cm 43.9 kg/m2 426621.17 g AMOR GOMEZ [place] [facility] 02/02/2024 13:08:21 Social History None recorded. Functional Status None recorded. Mental Status None recorded. Family History Nothing Reported. Medical History No medical history recorded. Gynecological HistoryNo gynecological history recorded. Obstetrics History GPAL:G 0 P 0 0 0 0 Past Encounters Encounter ID Performer Location Encounter Start Date Encounter Closed Date Diagnosis/Indication Diagnosis SNOMED-CT Code Diagnosis ICD10 Code Diagnosis IMO Codes Diagnosis Note [id number] MD Lacho Chandler [address] [place] [address] 12/12/2023 13:49:18 12/30/2023 12:56:03 Pain of right forearm 586082598 M79.631 Mass of forearm 70824090 6 R22.31 [id number] MD Lacho Chandler [address] [place] [address] 02/02/2024 12:40:38 03/07/2024 08:17:31 Pain of right forearm 868180162 M79.054 [id number] Health Concerns Section Related Observation LastModified by Organization Detai ls LastModified Time None Recorded Concern Status LastModified by Organization Details LastModified Time None Recorded Advance Directives Directive None Recorded Payers Insurance Date Sequence Insurance Name Policy Number Policy Duenas Covered Member ID Duenas Member ID Guarantor Name 03/07/2024 1 [facility]ICA[facility] Franchesca Razo [id number] Franchesca Razo Notes Date Note Type Note Provider Name and Address Organization Details Recorded Time 12/12/2023 text/html ROS as noted in the HPI Diagnosis: Soft tissue swelling right [id number] female who presents with intermittent severe swelling [...] reviewed, updated and is located in the patient s chart.Examination: Healthy appearing patient in no [...] been obtained. Harvey Stanley MD [address], [place], [address], [facility] 12/17/2023 17:35:28 02/02/2024 text/html ROS as noted in the HPI Diagnosis: Forearm swelling resolvedThe patient returns our request. Since her last visit she underwent MRI of her right forearm. She reports that she has not had swelling of her form since she last saw us.Past family, medical, social history and review of systems has been reviewed, updated and is located in the patient s chart.Examination: Healthy appearing patient in no [...] Stanley MD [address], [place], [address], [facility] 02/02/2024 14:09:26 OBGyn Episode No OBEpisode recorded.
--- OUTSIDE RECORDS SUMMARY | 2025-01-20 14:49 | XMS_ITS | Clinical Summary ---
Author Organization [facility] Address [address] [place] [address] Phone Care Team Providers Care Optician Manager Name Role Phone Physician, Pcp Unknown Primary Care Provider Coleen vailable Allergies No known active allergies Medications omeprazole (PriLOSEC) [address] capsule Take 1 capsule (20 mg total) by mouth 2 (two) times a day. 10/14/2024 Active Active Problems Problem Noted Date Diagnosed Date BOO (acute kidney injury) ([facility] V24) 12/31/19 25 Encounters Date Type Department Care Team Description 12/30/2024 4:59 PM EDT - 12/31/2024 2:00 PM EDT Hospital Encounter [facility] Care Unit [address] [place] [address] Guillaume Ruiz MD Mersier, Jasmine, DO Touriel, Ross, MD Jones, Christopher, MD Rasul, Yar M, MD BOO (acute kidney injury) ([facility] V24) (Primary Dx); Cyclical vomiting associated with intractable migraine; Hyponatremia; Hypokalemia Discharge Disposition: Left Against Medical Advice from Last 3 Months Medical History Medical History Date Comments Acid reflux disease with ulcer Gastritis Social History Tobacco Use Types Packs/Day Years Used Date Smoking Tobacco: Never Assessed Housing Instability Answer Date Recorde d Are you worried that in the next 2 months you may not have stable housing? No 12/31/2024 Food Access & Nutrition Answer Date Rec orded Do you have access to a vari ety of food including fruits and vegetables? Yes 12/31/2024 Access to Healthcare Answer Date Record ed Within the last 3 months, ho w many times did you visit the emergency department for your medical care? 0 12/31/2024 Health Literacy Answer Date Recorded How often do you need to hav e someone help you when you read instructions, pamphlets, or other written material from your doctor or pharmacy? Never 12/31/2024 Caregiver: How often do you need to have someone help you when you read instructions, pamphlets, or other written material from your doctor or pharmacy? Not on file 12/31/2024 Financial Risk Answer Date Recorded How hard is it for you to pa y for the very basics like food, housing, medical care, and air conditioning / heating? Not very hard 12/31/2024 Transportation Answer Date Recorded Has the lack of transportati on kept you from meetings, work, or from getting things needed for daily living? No Has the lack of transportati on kept you from medical appointments or from getting medications? No 12/31/2024 Social Isolation Answer Date Recorded How often do you feel lonely or isolated from those around you? Sometimes 12/31/2024 Food Risk Answer Date Recorded Within the past 12 months we worried whether our food would run out before we got money to buy more. Never true 12/31/2024 Within the past 12 months th e food we bought just didn't last and we didn't have money to get more. Never true 12/31/2024 Dependent Care Answer Date Recorded Do you need help finding or paying for care for your loved ones. For example, child support specialist or elderly care for an older adult? No 12/31/2024 Education Answer Date Recorded Do you think completing more education or training, like finishing a GED, going to college, or learning a trade, would be helpful for you? Yes 12/31/2024 Employment and Income Answer Date Recor ded During the last four weeks, have you been actively looking for work? Yes 12/31/2024 Living Situation Answer Date Recorded What is your living situation? Unrecognized valu e 12/31/2024 Interpersonal Safety Answer Date Record ed Physical Abuse Unrecognized value 12/31/2024 Verbal Abuse Unrecognized value 12/31/2024 Comments Unknown Sex and Gender Information Value Date Recorded Sex Assigned at Not on file Legal Sex Female 3:00 AM EST Gender Identity Not on file Sexual Orientation Not on file Obstetrics History Last Filed Vital Signs Vital Sign Reading Time Taken Comments Blood Pressure 107/65 12/31/2024 11:19 AM EDT Pulse 80 12/31/2024 11:19 AM EDT Temperature 36.7 C (98.1 F) 12/31/2024 11:19 AM EDT Respiratory Rate 16 12/31/2024 11:19 AM EDT Oxygen Saturation 99% 12/31/2024 11:19 AM EDT Inhaled Oxygen Concentration - - Weight 90.7 kg (200 lb) 12/30/2024 3:10 PM EDT Height 162.6 cm (5' 4 ) 12/30/2024 3:10 PM EDT Body Mass Index 34.33 12/30/2024 3:10 PM EDT Plan of Treatment Health Maintenance Due Date Last Done Comments Pneumococcal Vaccine: Pediatrics (0 to 5 Years) and At-Risk Patients (6 to 49 Years) (1 of 2 - PCV) 06/21/2010 Cervical Cancer Screening: P ap Smear 06/21/2012 HPV Vaccines (1 - 3-dose SCD M series) 06/21/2018 Depression Screening 03/10/2024 Hepatitis B Vaccines (2 of 3 - 19+ 3-dose series) 05/05/2024 04/07/2024 COVID-19 Vaccine (1 - 2024-2 6 season) 2024 Influenza Vaccine (#1) 2024 , 01/07/2015 Social Influencers of Health Screening 12/31/2025 12/31/2024 Cholesterol Screening (Lipid Panel) 03/24/2029 03/24/2024 DTaP,Tdap,and Td Vaccines (2 - Td or Tdap) 12/16/2029 12/17/2019 RSV Immunization Adult Patients (1 - 1-dose 75+ series) 06/21/2066 Hepatitis A Vaccines Completed 07/23/2023, 01/15/2023 HIV Screening Completed 03/24/2024 Hepatitis C Screening Completed 03/24/2024 HIB Vaccines Aged Out No longer eligi ble based on patient's age to complete this topic IPV Vaccines Aged Out No longer eligi ble based on patient's age to complete this topic MMR Vaccines Aged Out No longer eligi ble based on patient's age to complete this topic Meningococcal ACWY Vaccine Aged Out N o longer eligible based on patient's age to complete this topic Meningococcal B Vaccine Aged Out No l onger eligible based on patient's age to complete this topic RSV Immunization Patients Under 20 months Aged Out No longer eligible b ased on patient's age to complete this topic Varicella Vaccines Aged Out No longer eligible based on patient's age to complete this topic Procedures Procedure Name Priority Date/Time Associated Diagnosis Comments ECG 12-LEAD Routine 12/31/2024 7:39 AM EDT PASCUAL URINE CULTURE TUBE Routine 12/31/2024 6:03 AM EDT EXTRA TUBES Routine 12/31/2024 6:03 AM EDT EOSINOPHILS URINE STAT 12/31/2024 6:0 3 AM EDT PROTEIN AND CREATININE WITH RATIO, URINE STAT 12/31/2024 6:03 AM EDT CREATININE, URINE, RANDOM STAT 12/31/2024 6:03 AM EDT SODIUM, URINE, RANDOM STAT 12/31/2024 6:03 AM EDT DRUG ABUSE SCREEN 8A PANEL, URINE Routine 12/31/2024 6:03 AM EDT URINALYSIS WITH REFLEX MICROSCOPIC STAT 12/31/2024 6:03 AM EDT URINALYSIS WITH REFLEX MICROSCOPIC STAT 12/31/2024 6:03 AM EDT CBC WITH AUTO DIFFERENTIAL Routine 12/31/2024 5:17 AM EDT PHOSPHORUS Routine 12/31/2024 5:17 AM EDT MAGNESIUM Routine 12/31/2024 5:17 AM EDT CBC AND DIFFERENTIAL Routine 12/31/2024 5:17 AM EDT BASIC METABOLIC PANEL Routine 12/31/2024 5:[address] ABDOMEN PELVIS WO CONTRAST STAT 12/30/2024 8:02 PM EDT ECG 12-LEAD STAT 12/30/2024 6:49 PM EDT MANUAL DIFFERENTIAL - SYSMEX WAM STAT 12/30/2024 3:21 PM EDT ETHANOL STAT Add-on 12/30/2024 3:21 PM EDT HCG, SERUM, QUALITATIVE STAT Add-on 12/30/2024 3:21 PM EDT CBC WITH AUTO DIFFERENTIAL STAT 12/30/2024 3:21 PM EDT LIPASE STAT 12/30/2024 3:21 PM EDT MAGNESIUM STAT 12/30/2024 3:21 PM EDT COMPREHENSIVE METABOLIC PANEL STAT 12/30/2024 3:21 PM EDT CBC AND DIFFERENTIAL STAT 12/30/2024 3:21 PM EDT from Last 3 Months Results * ECG 12 lead (12/31/2024 7:39 AM EDT) Only the most recent of2 resultswithin the time period is included. Ventricular Rate ECG 65 BPM GEMUSE Atrial Rate 65 BPM GEMUSE P-R Interval 128 ms GEMUSE QRS Duration 86 ms GEMUSE Q-T Interval 554 ms GEMUSE QTc 576 ms GEMUSE P Wave [place] 24 degrees GEMUSE R [place] 26 degrees GEMUSE T [place] 15 degrees GEMUSE ECG Interpretation Critical Test Result: Long QTc Normal sinus rhythm Prolonged QT Abnormal ECG When compared with ECG of 30-DEC-2024 18:49, (unconfirmed) No significant change was found Confirmed by Abhilash PORTER JAMES ([id number]) on 12/31/2024 6:30:43 PM GEMUSE 12/31/2024 7:39 AM EDT 12/31/2024 6:30 PM EDT us Cem Cummings MD ECG ORDERABLES Final Resul t GEMUSE * (ABNORMAL) Urinalysis with reflex microscopic (12/31/2024 6:03 AM EDT) Specific Harvey Urine 1.012 1.003 - 1.030 LAB URINALYSIS - AUTOMATED METHOD 12/31/2024 7:57 AM [facility] pH, Urine 5.5 5.0 - 8.0 pH LAB URINALYSIS - AUTOMATED METHOD 12/31/2024 7:57 AM [facility] Leukocytes, Urine Moderate(A) Negative LAB URINALYSIS - AUTOMATED METHOD 12/31/2024 7:57 AM [facility] Nitrite, Urine Negative Negative LAB URINALYSIS - AUTOMATED METHOD 12/31/2024 7:57 AM [facility] Protein, Urine Negative <=Trace mg/dL LAB URINALYSIS - AUTOMATED METHOD 12/31/2024 7:57 AM [facility] Glucose, Urine Negative Negative mg/dL LAB URINALYSIS - AUTOMATED METHOD 12/31/2024 7:57 AM [facility] Ketones, Urine 40(A) Negative mg/dL LAB URINALYSIS - AUTOMATED METHOD 12/31/2024 7:57 AM [facility] Urobilinogen , Urine 0.2 0.2 - 1.0 mg/dL LAB URINALYSIS - AUTOMATED METHOD 12/31/2024 7:57 AM [facility] Bilirubin, Urine Negative Negative LAB URINALYSIS - AUTOMATED METHOD 12/31/2024 7:57 AM [facility] Blood, Urine Trace(A) Negative LAB URINALYSIS - AUTOMATED METHOD 12/31/2024 7:57 AM [facility] RBC, Urine 2 0 - 4 /HPF LAB URINALYSIS - AUTOMATED METHOD 12/31/2024 7:57 AM EDT [facility] WBC, Urine >100(H) 0 - 4 /HPF LAB URINALYSIS - AUTOMATED METHOD 12/31/2024 7:57 AM EDT [facility] Squamous Epithelial, Urine 36 0 - 60 /LPF LAB URINALYSIS - AUTOMATED METHOD 12/31/2024 7:57 AM EDT [facility] Crystals, Urine Moderate Uric Acid crystals. /LPF LAB URINALYSIS - AUTOMATED METHOD 12/31/2024 7:57 AM EDT [facility] Bacteria, Urine Few(A) Negative /HPF LAB URINALYSIS - AUTOMATED METHOD 12/31/2024 7:57 AM EDT [facility] Hyaline Casts, Urine 3 0 - 3 /LPF LAB URINALYSIS - AUTOMATED METHOD 12/31/2024 7:57 AM EDT [facility] Urine Urine specimen obtained by clean catch procedure / Unknown Non-blood Collection / Unknown 12/31/2024 6:03 AM EDT 12/31/2024 6:45 AM EDT us Myles Alegria MD LAB URINE ORDERABLES Final Resul t Performing Organization Address City/[facility]/ZIP Co de Phone Number [facility] [address] [place] [address], [place] [phone] * Pascual urine culture tube (12/31/2024 6:03 AM EDT) Extra Tube Hold for add-ons. 12/31/2024 8:01 AM EDT [facility] Comment:Auto resulted. Urine Urine specimen obtained by clean catch procedure / Unknown Non-blood Collection / Unknown 12/31/2024 6:03 AM EDT 12/31/2024 6:46 AM EDT us Josh Bailey MD LAB URINE ORDERABLES Final Resul t [facility] [address] [place] [address], * (ABNORMAL) Drug abuse screen 8a panel, urine (12/31/2024 6:03 AM EDT) Amphetamine Screen, Ur Negative Negative LAB CHEMISTRY METHOD 5 8:11 AM [facility] Comment:Certain OTC medicati ons containing ephedrine, phenylephrine, pseudoephedrine and phenylpropanolamine can cause false positive results. Barbiturate Screen, Ur Negative Negative LAB CHEMISTRY METHOD 5 8:11 AM [facility] Benzodiazepine Screen, Ur Negative Negative LAB CHEMISTRY METHOD 8:11 AM [facility] Cocaine Screen, Ur Negative Negative LAB CHEMISTRY METHOD 5 8:11 AM [facility] Opiate Screen, Ur Negative Negative LAB CHEMISTRY METHOD 8:11 AM [facility] Cannabinoid (THC) Screen, Ur Positive(A ) Negative LAB CHEMISTRY METHOD 5 8:11 AM [facility] Comment:Specimens from patie nts taking pantoprazole sodium (Protonix) have been shown to produce false positive results. Oxycodone Screen, Ur Negative Negative LAB CHEMISTRY METHOD 5 8:11 AM [facility] Fentanyl, Ur Negative Negative LAB CHEMISTRY METHOD 5 8:11 AM [facility] Urine Urine specimen obtained by clean catch procedure / Unknown Non-blood Collection / Unknown 12/31/2024 6:03 AM EDT 12/31/2024 6:52 AM EDT Narrative [facility] - 12/31/2024 8:11 AM EDT Assay cutoffs: Amphetamines 1000 ng/mL Barbiturates 200 ng/mL Benzodiazepines 200 ng/mL Cocaine 300 ng/mL Fentanyl 1 ng/mL Opiates 300 ng/mL Oxycodone 100 ng/mL THC 50 ng/mL Semi-quantitative assay for screening purposes only. Unconfirmed screening result should not be used for non-medical purposes. *ALTERNATE METHOD CONFIRMATION DONE UPON REQUEST ONLY* us Cem Cummings MD LAB URINE ORDERABLES Final Result Performing Organization Address [facility] de Phone Number [facility] [address] [place] [address], [place] [phone] * (ABNORMAL) Eosinophils, urine (12/31/2024 6:03 AM EDT) Eosinophil % Urine 33(H) 0 % 12/31/2024 8:27 AM EDT [facility] WBC, Urine >100(H) 0 - 4 /HPF LAB URINALYSIS - AUTOMATED METHOD 12/31/2024 8:27 AM [facility] Urine Urine specimen obtained by clean catch procedure / Unknown Non-blood Collection / Unknown 12/31/2024 6:03 AM EDT 12/31/2024 6:45 AM EDT us Cem Cummings MD LAB URINE ORDERABLES Final Result Performing Organization Address [facility] Phone Number [facility] [address] [place] [address], [place] [phone] * Protein and creatinine with ratio, urine (12/31/2024 6:03 AM EDT) Protein, Urine 15 mg/dL LAB CHEMISTRY METHOD 12/31/2024 8:11 AM EDT [facility] Prot/Creat, Ur 0.18 <=0.20 mg/mg creat LAB CHEMISTRY METHOD 12/31/2024 8:11 AM EDT [facility] Creatinine, Urine 84.0 mg/dL LAB CHEMISTRY METHOD 12/31/2024 8:11 AM T [facility] Urine Urine specimen obtained by clean catch procedure / Unknown Non-blood Collection / Unknown 12/31/2024 6:03 AM EDT 12/31/2024 6:52 AM EDT us Cem Cummings MD LAB URINE ORDERABLES Final Result Performing Organization Address [facility] Co de Phone Number [facility] [address] [place] [address], [place] [phone] * Sodium, urine, random (12/31/2024 6:03 AM EDT) Sodium, Ur 13 mmol/L LAB CHEMISTRY METHOD 12/31/2024 8:11 AM EDT [facility] Urine Urine specimen obtained by clean catch procedure / Unknown Non-blood Collection / Unknown 12/31/2024 6:03 AM EDT 12/31/2024 6:52 AM EDT us Cem Cummings MD LAB URINE ORDERABLES Final Result Performing Organization Address [facility] de Phone Number [facility] [address] [place] [address], [place] [phone] * Creatinine, urine, random (12/31/2024 6:03 AM EDT) Creatinine, Urine 84.0 mg/dL LAB CHEMISTRY METHOD 12/31/2024 8:11 AM EDT [facility] Urine Urine specimen obtained by clean catch procedure / Unknown Non-blood Collection / Unknown 12/31/2024 6:03 AM EDT 12/31/2024 6:52 AM EDT us Cem Cummings MD LAB URINE ORDERABLES Final Result Performing Organization Address [facility]/ZIP Co de Phone Number [facility] [address] [place] [address], [place] [phone] * (ABNORMAL) CBC auto differential (12/31/2024 5:17 AM EDT) Only the most recent of2 resultswithin the time period is included. WBC 12.9(H) 4.8 - 10.8 K/mcL LAB HEMETOLOGY METHOD 12/31/2024 7:29 AM [facility] RBC 4.80 3.80 - 4.80 M/mcL LAB HEMETOLOGY METHOD 12/31/2024 7:29 AM [facility] Hemoglobin 13.0 11.5 - 16.0 g/dL LAB HEMETOLOGY METHOD 12/31/2024 7:29 AM [facility] Hematocrit 39.4 35.0 - 47.0 % LAB HEMETOLOGY METHOD 12/31/2024 7:29 AM [facility] MCV 81.6 79.0 - 98.0 FL LAB HEMETOLOGY METHOD 12/31/2024 7:29 AM [facility] MCH 26.9(L) 27.0 - 32.0 pcg LAB HEMETOLOGY METHOD 12/31/2024 7:29 AM [facility] MCHC 33.0 32.0 - 37.0 g/dL LAB HEMETOLOGY METHOD 12/31/2024 7:29 AM [facility] RDW 13.0 11.0 - 15.0 % LAB HEMETOLOGY METHOD 12/31/2024 7:29 AM [facility] Platelets 205 130 - 400 K/mcL LAB HEMETOLOGY METHOD 12/31/2024 7:29 AM [facility] MPV 12.5(H) 7.0 - 11.0 FL LAB HEMETOLOGY METHOD 12/31/2024 7:29 AM [facility] NRBC 0.0 <1.0 % LAB HEMETOLOGY METHOD 12/31/2024 7:29 AM [facility] NRBC Absolute 0.00 <0.10 K/mcL LAB HEMETOLOGY METHOD 12/31/2024 7:29 AM [facility] Neutrophils Relative 65.7 % LAB HEMETOLOGY METHOD 12/31/2024 7:29 AM [facility] Lymphocytes Relative 20.8 % LAB HEMETOLOGY METHOD 12/31/2024 7:29 AM [facility] Monocytes Relative 11.5 % LAB HEMETOLOGY METHOD 12/31/2024 7:29 AM [facility] Eosinophils Relative 1.5 % LAB HEMETOLOGY METHOD 12/31/2024 7:29 AM [facility] Basophils Relative 0.2 % LAB HEMETOLOGY METHOD 12/31/2024 7:29 AM [facility] Immature Granulocytes Relative 0.3 % LAB HEMETOLOGY METHOD 12/31/2024 7:29 AM [facility] Neutrophils Absolute 8.49(H) 1.50 - 7.00 K/mcL LAB HEMETOLOGY METHOD 12/31/2024 7:29 AM [facility] Lymphocytes Absolute 2.69 1.00 - 5.00 K/mcL LAB HEMETOLOGY METHOD 12/31/2024 7:29 AM [facility] Monocytes Absolute 1.49(H) 0.20 - 1.00 K/mcL LAB HEMETOLOGY METHOD 12/31/2024 7:29 AM [facility] Eosinophils Absolute 0.19 0.00 - 0.50 K/mcL LAB HEMETOLOGY METHOD 12/31/2024 7:29 AM [facility] Basophils Absolute 0.03 0.00 - 0.20 K/mcL LAB HEMETOLOGY METHOD 12/31/2024 7:29 AM [facility] Immature Granulocytes Absolute 0.04(H) 0.00 - 0.03 K/mcL LAB HEMETOLOGY METHOD 12/31/2024 7:29 AM EDT [facility] Blood Venous blood specimen / Unknown Venipuncture / Unknown 12/31/2024 5:17 AM EDT 12/31/2024 6:55 AM EDT us Cem Cummings MD LAB BLOOD ORDERABLES Final Result Performing Organization Address City/[facility]/ZIP Co de Phone Number [facility] [address] [place] [address], [place] [phone] * (ABNORMAL) Phosphorus (12/31/2024 5:17 AM EDT) Phosphorus 1.5(L) 2.5 - 4.5 mg/dL LAB CHEMISTRY METHOD 12/31/2024 7:30 AM EDT [facility] Blood Venous blood specimen / Unknown Venipuncture / Unknown 12/31/2024 5:17 AM EDT 12/31/2024 6:55 AM EDT us Cem Cummings MD LAB BLOOD ORDERABLES Final Result Performing Organization Address [facility] Co de Phone Number [facility] [address] [place] [address], [place] [phone] * Magnesium (12/31/2024 5:17 AM EDT) Only the most recent of2 resultswithin the time period is included. Magnesium 2.4 1.9 - 2.6 mg/dL LAB CHEMISTRY METHOD 12/31/2024 7:30 AM EDT [facility] Blood Venous blood specimen / Unknown Venipuncture / Unknown 12/31/2024 5:17 AM EDT 12/31/2024 6:55 AM EDT us Cem Cummings MD LAB BLOOD ORDERABLES Final Result Performing Organization Address City/[facility]/ZIP Co de Phone Number [facility] [address] [place] [address], [place] [phone] * (ABNORMAL) Basic metabolic panel (12/31/2024 5:17 AM EDT) Sodium 129(L) 133 - 145 mmol/L LAB CHEMISTRY METHOD 12/31/2024 7:48 AM [facility] Potassium 2.5(LL) 3.5 - 5.5 mmol/L LAB CHEMISTRY METHOD 12/31/2024 7:48 AM [facility] Chloride 89(L) 96 - 110 mmol/L LAB CHEMISTRY METHOD 12/31/2024 7:48 AM [facility] CO2 34(H) 21 - 32 mmol/L LAB CHEMISTRY METHOD 12/31/2024 7:48 AM [facility] Anion Gap 6 3 - 11 LAB CHEMISTRY METHOD 12/31/2024 7:48 AM [facility] Glucose 121(H) 70 - 100 mg/dL LAB CHEMISTRY METHOD 12/31/2024 7:48 AM [facility] BUN 26(H) 5 - 25 mg/dL LAB CHEMISTRY METHOD 12/31/2024 7:48 AM [facility] Creatinine 1.08 0.50 - 1.10 mg/dL LAB CHEMISTRY METHOD 12/31/2024 7:48 AM [facility] eGFR 70 >=60 mL/min/1. 73m2 LAB CHEMISTRY METHOD 12/31/2024 7:48 AM [facility] Comment:Calculation based on the Chronic Kidney Disease Epidemiology Collaboration (CKD-EPI) equation refit without adjustment for race. BUN/Creatinine Ratio 24.1 LAB CHEMISTRY METHOD 12/31/2024 7:48 AM [facility] Calcium 8.3(L) 8.5 - 10.5 mg/dL LAB CHEMISTRY METHOD 12/31/2024 7:48 AM [facility] Blood Venous blood specimen / Unknown Venipuncture / Unknown 12/31/2024 5:17 AM EDT 12/31/2024 6:55 AM EDT Cem Cummings MD LAB BLOOD ORDERABLES Final Result [facility] ([facility]) [facility] [address] [place] [address], [place] [phone] * CT Abdomen Pelvis wo Contrast (12/30/2024 8:02 PM EDT) Anatomical Region Laterality Modality Body Computed Tomogra phy 12/30/2024 8:39 PM EDT Narrative 12/30/2024 8:39 PM EDT INDICATION: nausea vomiting Exam: CT Abdomen and Pelvis Without IV Contrast Comparison: None Findings: The liver density is homogeneous with fatty infiltration No biliary abnormalities The spleen is normal in size No pancreatic ductal dilatation No hydronephrosis. No urinary tract calculi or obstruction Normal bowel caliber. No signs of inflammatory bowel disease. No diverticulitis The appendix is normal. No free fluid/free air The abdominal aorta caliber is normal Bladder outline is smooth. The uterus is normal in size. No suspicious skeletal lesions Impression : Diffuse fatty liver, otherwise CT of the abdomen and pelvis Normal appendix This document has been electronically signed by: Guillaume Canas MD on 12/30/2024 20:39:11 Procedure Note Guillaume Canas MD - 12/30/2024 INDICATION: nausea vomiting Exam: CT Abdomen and Pelvis Without IV Contrast Comparison: None Findings: The liver density is homogeneous with fatty infiltration No biliary abnormalities The spleen is normal in size No pancreatic ductal dilatation No hydronephrosis. No urinary tract calculi or obstruction Normal bowel caliber. No signs of inflammatory bowel disease. No diverticulitis The appendix is normal. No free fluid/free air The abdominal aorta caliber is normal Bladder outline is smooth. The uterus is normal in size. No suspicious skeletal lesions Impression : Diffuse fatty liver, otherwise CT of the abdomen and pelvis Normal appendix This document has been electronically signed by: Guillaume Canas MD on 12/30/2024 20:39:11 Guillaume Ruiz MD IMG CT PROCEDURES Final Res ult * (ABNORMAL) Manual differential (12/30/2024 3:21 PM EDT) Neutrophils % 71.0 % LAB HEMETOLOGY [facility]24 [facility] Lymphocytes % 17.0 % LAB HEMETOLOGY METHOD 12/30/2024 4:[facility] Monocytes % 11.0 % LAB HEMETOLOGY METHOD 12/30/2024 4:19 PM [facility] Eosinophils % 0.0 % LAB HEMETOLOGY METHOD 12/30/2024 4:19 PM [facility] Basophils % 0.0 % LAB HEMETOLOGY METHOD 12/30/2024 4:19 PM [facility] Neutrophils Absolute Manual 12.71(H) 1.50 - 7.00 K/mcL LAB HEMETOLOGY METHOD 12/30/2024 4:19 PM [facility] Lymphocytes Absolute 3.04 1.00 - 5.00 K/mcL LAB HEMETOLOGY METHOD 12/30/2024 4:19 PM [facility] Monocytes Absolute Manual 1.97(H) 0.20 - 1.00 K/mcL LAB HEMETOLOGY METHOD 12/30/2024 4:19 PM [facility] Eosinophils Absolute Manual 0.00 0.00 - 0.50 K/mcL LAB HEMETOLOGY METHOD 12/30/2024 4:19 PM [facility] Basophils Absolute Manual 0.00 0.00 - 0.20 K/mcL LAB HEMETOLOGY METHOD 12/30/2024 4:19 PM [facility] Rbc Morphology See comment( A) Consistent with indices, Normal for [place] LAB HEMETOLOGY METHOD 12/30/2024 4:19 PM EDT [facility] Comment:RBC: Morphology agre es with CBC Platelet Morphology - WAM See Note(A) Normal LAB HEMETOLOGY METHOD 12/30/2024 4:19 PM EDT [facility] Comment:PLT: Giant platelets seen Blood Venous blood specimen / Unknown Venipuncture / Unknown 12/30/2024 3:21 PM EDT 12/30/2024 3:45 PM EDT Guillaume Ruiz MD LAB BLOOD ORDERABLES Final Result [facility] [address] [place] [address], [place] [phone] * hCG Qualitative (12/30/2024 3:21 PM EDT) [facility] hCG Qual Negative Negative 12/30/2024 5:39 PM EDT [facility] Blood Venous blood specimen / Unknown Venipuncture / Unknown 12/30/2024 3:21 PM EDT 12/30/2024 3:45 PM EDT Yeny Godwin DO LAB BLOOD ORDERABLES Final Re sult Performing Organization Address [facility]/ZIP Co de Phone Number [facility] [address] [place] [address], [place] [phone] * Lipase (12/30/2024 3:21 PM EDT) [facility] Lipase 51 13 - 75 unit/L LAB CHEMISTRY METHOD 12/30/2024 4:14 PM EDT [facility] Blood Venous blood specimen / Unknown Venipuncture / Unknown 12/30/2024 3:21 PM EDT 12/30/2024 3:45 PM EDT Guillaume Ruiz MD LAB BLOOD ORDERABLES Final Result Performing Organization Address City/[facility]/ZIP Co de Phone Number [facility] [address] [place] [address], [place] [phone] * Ethanol (12/30/2024 3:21 PM EDT) [facility] Ethanol Level <3 0 - 10 mg/dL LAB CHEMISTRY METHOD 12/30/2024 5:57 PM [facility] Blood Venous blood specimen / Unknown Venipuncture / Unknown 12/30/2024 3:21 PM EDT 12/30/2024 3:45 PM EDT us Yeny Godwin DO LAB BLOOD ORDERABLES Final Re sult [facility] [address] [place] [address], [place] [phone] * (ABNORMAL) Comprehensive metabolic panel (12/30/2024 3:21 PM EDT) [facility] Sodium 126(L) 133 - 145 mmol/L LAB CHEMISTRY METHOD 12/30/2024 4:23 PM [facility] Potassium 3.0(L) 3.5 - 5.5 mmol/L LAB CHEMISTRY METHOD 12/30/2024 4:23 PM [facility] Chloride 77(L) 96 - 110 mmol/L LAB CHEMISTRY METHOD 12/30/2024 4:23 PM [facility] CO2 33(H) 21 - 32 mmol/L LAB CHEMISTRY METHOD 12/30/2024 4:23 PM [facility] Anion Gap 16(H) 3 - 11 LAB CHEMISTRY METHOD 12/30/2024 4:23 PM [facility] Glucose 94 70 - 100 mg/dL LAB CHEMISTRY METHOD 12/30/2024 4:23 PM [facility] BUN 40(H) 5 - 25 mg/dL LAB CHEMISTRY METHOD 12/30/2024 4:23 PM [facility] Creatinine 2.06(H) 0.50 - 1.10 mg/dL LAB CHEMISTRY METHOD 12/30/2024 4:23 PM [facility] eGFR 32(L) >=60 mL/min/1. 73m2 LAB CHEMISTRY METHOD 12/30/2024 4:23 PM [facility] Comment:Calculation based on the Chronic Kidney Disease Epidemiology Collaboration (CKD-EPI) equation refit without adjustment for race. BUN/Creatinine Ratio 19.4 LAB CHEMISTRY METHOD 12/30/2024 4:23 PM [facility] Calcium 9.8 8.5 - 10.5 mg/dL LAB CHEMISTRY METHOD 12/30/2024 4:23 PM [facility] AST (SGOT) 44(H) 10 - 42 unit/L LAB CHEMISTRY METHOD 12/30/2024 4:23 PM [facility] ALT (SGPT) 58 10 - 60 unit/L LAB CHEMISTRY METHOD 12/30/2024 4:23 PM [facility] Alkaline Phosphatase 87 42 - 121 unit/L LAB CHEMISTRY METHOD 12/30/2024 4:23 PM [facility] Total Protein 9.1(H) 6.0 - 8.0 g/dL LAB CHEMISTRY METHOD 12/30/2024 4:23 PM [facility] Albumin 4.6 3.2 - 5.0 g/dL LAB CHEMISTRY METHOD 12/30/2024 4:23 PM [facility] Total Bilirubin 0.6 0.0 - 1.4 mg/dL LAB CHEMISTRY METHOD 12/30/2024 4:23 PM [facility] Blood Venous blood specimen / Unknown Venipuncture / Unknown 12/30/2024 3:21 PM EDT 12/30/2024 3:45 PM EDT us Guillaume Ruiz MD LAB BLOOD ORDERABLES Final Result [facility] [address] [place] [address], [place] [phone] from Last 3 Months Insurance MEDICAID - [place] Advance Directives * Full Code - Default (Latest Code Status on File) Date Activated Date Inactivated Comments 12/30/2024 10:37 PM 12/31/2024 4:42 PM This is o rder is used when code status has not been discussed with the patient, or code status is otherwise unknown/unconfirmed To update the patient's code status, place a code status order. Do not modify or discontinue any currently active code status orders. Care Teams Optician Manager Relationship Specialty Start Date End Date Physician, Pcp Unknown PCP - General 12/30/24
--- OUTSIDE RECORDS SUMMARY | 2025-01-20 14:49 | XMS_ITS | Encounter Summary ---
Author Organization [employer] Address [address] [place] [address] Care Team Providers Care Loan Interviewer Mortgage Name Role Phone Gali Pollack NP Primary Care Provider [phone] Reason for Visit * Reason Onset Date Comments Referral 12/09/2024 Encounter Details Date Type Department Care Team ([facility] st Contact Info) Description 12/09/2024 Telephone [facility] [address] [place], [place] [id number] Gali Pollack NP [address] [place] [address] Referral Social History Tobacco Use Types Packs/Day Years [...] Answer Date Recorded Patient Health Questionnaire-9 Score 1 01/19/2024 Patient Health Questionnaire-9 Score 1 01/19/2024 Last PHQ-9: Questionnaire Data Not on file 1 03/20/2023 Housing Stability Answer Date Recorded What is your housing situation today? I do not have housing (Staying with others, in a hotel, in a longterm, living outside on the street, on a [...] Answer Date Recorded Patient Health Questionnaire-2 Score 0 01/19/2024 Internet Access Answer Date Recorded Internet Access Q1 Yes 01/19/2024 Internet Access Q2 Not on file 01/19/2024 Comments No Sex and Gender Information Value Date Recorded Sex Assigned at Female 01/07/2022 10:37 AM EDT Legal Sex Female 10:37 AM EDT Gender Identity Female 01/07/2022 10:37 AM EDT Sexual Orientation Straight 01/19/2024 10 :40 AM EST documented as of this encounter Miscellaneous Notes * Telephone Encounter - Gali Pollack NP - 12/10/2024 10:56 AM EDT Team nurses, please inform patient of insurance being inactive therefore we are unable to process the referral. desktop publishing specialist will do so once insurance issue has been resolved. Thanks * Telephone Encounter - Jessica Bowers - 12/09/2024 12:50 PM EDT Tc from pt requesting an new referral for gastrology - [facility] - Dr. Garcia Contact pt at [phone] documented in this encounter Plan of Treatment Upcoming Encounters Date Type Department Care Team (Late st Contact Info) Description 02/24/2025 11:00 AM EST Office Visit [facility] [address] [place] [address] Gali Pollack NP [address] [place] [address] documented as of this encounter Visit Diagnoses Not on filedocumented in this encounter Additional Health Concerns Assessment Noted Time PHQ-9 Depression Total Score: 1 01/19/20 9:38 AM EST documented as of this encounter Care Teams Loan Interviewer Mortgage Relationship Specialty Start Date End Date Gali Pollack NP [address] [place] [address] PCP - General Family Medicine 04/14/23 documented as of this encounter
--- OUTSIDE RECORDS SUMMARY | 2025-01-20 14:49 | XMS_ITS | Encounter Summary ---
Author Organization [facility] Address [address] [address] Phone Care Team Providers Care Adjuster Name Role Phone Pcp, Unknown Primary Care Provider Unavailabl e Encounter Details Date Type Department Care Team (Late st Contact Info) Description 02/12/2021 Procedure Pass [facility], Ct Scan - [address] [address] Social History Tobacco Use Types Packs/Day Years Used Date Smoking Tobacco: Never Smokeless Tobacco: Never Alcohol Use Standard Drinks/Week Comments Not Currently 0 (1 standard drink = 0.6 oz pur e alcohol) Comments No Sex and Gender Information Value Date Recorded Sex Assigned at Female 05/26/2020 2:58 PM EDT Legal Sex Female 9:00 PM EDT Gender Identity Female 05/26/2020 2:58 PM EDT Sexual Orientation Choose not to disclose 2020 2:58 PM EDT documented as of this encounter Functional Status * Calculated C-SSRS Risk Score (Lifetime/Recent) Answer Date of Assessment Author No Risk Indicated 02/12/2021 11:09 AM Konstantin Segal, EDUAR * [place] Suicide Severity Rating Scale (Screener/Recent Self-Report) Question Answer Date of Assessment Author 1. Wish to be (Past 1 Month) No 021 11:09 AM Konstantin Segal, RN 2. Non-Specific Active Suici sachin Thoughts (Past 1 Month) No 02/12/2021 11:09 AM Gutierrez Segal RN 6. Suicidal Behavior (Lifetime) No 11:09 AM Konstantin Segal, RN documented as of this encounter Plan of Treatment Not on file documented as of this encounter Visit Diagnoses Not on filedocumented in this encounter Care Teams Adjuster Relationship Specialty Start Date End Date Pcp, Unknown PCP - General 06/12/20 documented as of this encounter Additional Source Comments The information contained in this document represents components of the legal health record. It is not the complete legal health record.[facility]
--- OUTSIDE RECORDS SUMMARY | 2025-01-20 14:49 | XMS_ITS | Encounter Summary ---
Author Organization [facility] Address [address] [facility] [address] [place] [phone] Phone Care Team Providers Care Post Doc Fellowship Name Role Phone Pcp, Unknown Primary Care Provider Unavailabl e Encounter Details Date Type Department Care Team (Late st Contact Info) Description 06/12/2020 Procedure Pass [facility] Admitting Dept Virtual Department [address] [place] [address] Social History Tobacco Use Types Packs/Day Years Used Date Smoking Tobacco: Never Smokeless Tobacco: Never Alcohol Use Standard Drinks/Week Comments Not Currently 0 (1 standard drink = 0.6 oz pur e alcohol) Comments Unknown Sex and Gender Information Value Date Recorded Sex Assigned at Female 05/26/2020 2:58 PM EDT Legal Sex Female 9:00 PM EDT Gender Identity Female 05/26/2020 2:58 PM EDT Sexual Orientation Choose not to disclose 2020 2:58 PM EDT documented as of this encounter Functional Status * Calculated C-SSRS Risk Score (Lifetime/Recent) Answer Date of Assessment Author No Risk Indicated 06/13/2020 12:58 PM EDT Rebecca Bennett RN * [place] Suicide Severity Rating Scale (Screener/Recent Self-Report) Question Answer Date of Assessment Author 1. Wish to be (Past 1 Month) No 06/13/2020 12:58 PM EDT Misael Diaz cie, RN 2. Non-Specific Active Suicidal Thoughts (Past 1 Month) No 06/13/2020 12:58 PM EDT Misael Diaz cie, RN 3. Active Suicidal Ideation with any Methods (Not Plan) Without Intent to Act (Past 1 Month) Yes 06/12/2020 4:47 PM EDT Jose Patterson, EDUAR 5. Active Suicidal Ideation with Specific Plan and Intent (Past 1 Month) No 06/12/2020 4:47 PM EDT Zaynab Patterson, EDUAR 6. Suicidal Behavior (Lifetime) No 06/13/2020 12:58 PM EDT Misael Diaz cie, RN documented as of this encounter Plan of Treatment Not on file documented as of this encounter Visit Diagnoses Not on filedocumented in this encounter Additional Health Concerns Infection Onset Date Last Indicated Resolved Time CoV-Risk 06/09/2020 06/09/2020 06/12/2020 9:30 AM EDT C. diff 06/10/2020 06/10/2020 07/10/2020 1:23 AM EDT documented as of this encounter Care Teams Post Doc Fellowship Relationship Specialty Start Date End Date Pcp, Unknown PCP - General 06/12/20 documented as of this encounter Additional Source Comments The information contained in this document represents components of the legal health record. It is not the complete legal health record.[facility]
--- OUTSIDE RECORDS SUMMARY | 2025-01-20 14:49 | XMS_ITS | Encounter Summary ---
Author Organization [facility] Address [address] [address] Phone Care Team Providers Care Environmental Issues Instructor Name Role Phone Unknown, Unknown MD Primary Care Provider Bentley ceballos Pcp, Unknown Primary Care Provider Unavailabl e Pcp, Unknown Primary Care Provider Unavailabl e Encounter Details Date Type Department Care Team (Late st Contact Info) Description 05/17/2020 Procedure Pass [facility], Ct Scan - [address] [address] Social History Tobacco Use Types Packs/Day Years [...] Date of Assessment Author No Risk Indicated 05/17/2020 11:41 AM Kell Martinez RN * [place] Suicide Severity Rating Scale (Screener/Recent Self-Report) Question Answer Date of Assessment Author 1. Wish to be (Past 1 Month) No 021 11:41 AM Kell Martinez, EDUAR 2. Non-Specific Active Suici sachin Thoughts (Past 1 Month) No 05/17/2020 11:41 AM Halina Martinez RN 6. Suicidal Behavior (Lifetime) No 11:41 AM EST StarKell RN documented as of this encounter Plan of Treatment Not on file documented as of this encounter Visit Diagnoses Not on filedocumented in this encounter Additional Health Concerns Infection Onset Date Last Indicated Resolved Time CoV-Risk 06/09/2020 06/09/2020 06/12/2020 9:30 AM EDT C. diff 06/10/2020 06/10/2020 07/10/2020 1:23 AM EDT documented as of this encounter Care Teams Environmental Issues Instructor Relationship Specialty Start Date End Date Unknown, Unknown, MD PCP - General 05/17/20 05/25/20 Pcp, Unknown PCP - General 05/26/20 06/11/20 Pcp, Unknown PCP - General 06/12/20 documented as of this encounter Additional Source Comments The information contained in this document represents components of the legal health record. It is not the complete legal health record.[facility]
--- OUTSIDE RECORDS SUMMARY | 2025-01-20 14:49 | XMS_ITS | Encounter Summary ---
Author Organization [employer] Address [address] [place] [address] Care Team Providers Care Spool Carrier Name Role Phone Gali Pollack NP Primary Care Provider [phone] Encounter Details Date Type Department Care Team (Latest Contact Info) Description 01/18/2025 Travel Social History Tobacco Use Types Packs/Day Years [...] with others, in a hotel, in a group home, living outside on the street, on a [...] AM EST documented as of this encounter Plan of Treatment Upcoming Encounters Date Type Department Care Team (Late st Contact Info) Description 02/24/2025 11:00 AM EST Office Visit [facility] [address] [place] [address] Gali Pollack NP [address] [place] [address] documented as of this encounter Visit Diagnoses Not on filedocumented in this encounter Additional Health Concerns Assessment Noted Time PHQ-9 Depression Total Score: 1 01/19/20 24 9:38 AM EST documented as of this encounter Care Teams Spool Carrier Relationship Specialty Start Date End Date Gali Pollack NP [address] [place] [address] PCP - General Family Medicine 04/14/23 documented as of this encounter
--- OUTSIDE RECORDS SUMMARY | 2025-01-20 14:49 | XMS_ITS | Clinical Summary ---
Author Organization [employer] Address [address] [place] [address] Care Team Providers Care Journeyman Level Acoustic Analyst Name Role Phone Gali Pollack NP Primary Care Provider [phone] Allergies No known active allergies Medications * This document contains information received from the source organization and may not represent a complete record from that organization. albuterol 108 (90 Base) MCG/ACT inhalerIndication s:Mild intermittent asthma without complication Inhale 2 puffs every 6 (six) hours if needed for wheezing. 18 g 2 4 Active omeprazole (PriLOSEC) [address] capsuleIndication s:Gastroesophagea l reflux disease without esophagitis TAKE 1 CAPSULE BY MOUTH BEFORE BREAKFAST AND BEFORE EVENING MEAL. DO NOT CRUSH OR CHEW. 180 capsule 2 5 Active Active Problems Problem Noted Date Diagnosed Date Irregular menses 05/17/2024 Assessment & Plan (05/17/2024 2:09 PM EDT): -advised continued monitoring -further work up pending lab results Elevated lipase 03/24/2024 Intractable nausea and vomiting 03/24/2024 Anxiety disorder 01/19/2024 Overview (01/19/2024): Last Assessment & Plan: Patient uses marijuana daily since age 15 to cope with anxiety. Social work/BHRT consults as above. Class 3 severe obesity due t o excess calories without serious comorbidity with body mass index (BMI) of 40.0 to 44.9 in adult 01/19/2024 Assessment & Plan (05/17/2024 2:08 PM EDT): Dietary Recommendations: Fruits, vegetables, whole grains, protein foods, and fat-free or low-fat dairy products are healthy choices. Eat different types of protein foods in your diet. This can include seafood, lean meats, poultry, beans, peas, lentils, nuts, seeds, soy products, and eggs. Limit foods and beverages higher in added sugars, saturated fat, and sodium. Exercise Recommendations: At least 150 minutes of moderate-intensity physical activity per week, or an equivalent combination of moderate- and vigorous-intensity activity Assessment & Plan (01/19/2024 10:15 AM EST): -Healthy diet and exercise teaching completed: Eat a variety of fruit and vegetables, whole grains such as whole-wheat flour, bulgur (cracked wheat), oatmeal, and brown rice. Intake protein from beans, nuts, fish, and lean meats. Eat low-fat or fat- free dairy products. Limit highly processed foods such as hot dogs, sandwich meat, etc. Engage in minimum of 150 min of moderate intensity exercise weekly -labs ordered to assess for endocrine contribution and resulting metabolic effects -referral for nutrition services placed -follow-up during transfer patient visit as scheduled Swelling of right upper extremity 01/19/2024 Assessment & Plan (01/19/2024 10:13 AM EST): -chronic condition -being work-up by [facility]. Will obtain records -advised to keep appointment with ortho to discuss MRI results. Will refer to vascular for further work-up if ortho rules out MSK causes -patient agrees with plan Gastroesophageal reflux disease 09/01/2021 Assessment & Plan (01/20/2025 11:21 AM EST): Orders: Helicobacter pylori Antigen, EIA, Stool; Future Assessment & Plan (09/30/2024 2:00 PM EDT): -prescription for omeprazole provided -weight loss advised -avoid trigger foods such as caffeine, chocolate, spicy foods, food with high fat content, carbonated beverages, highly acidic food and peppermint -avoid late night eating -avoid tight-fitting garments to prevent increasing intragastric pressure -remain upright for at least 1 hour following meals Opioid abuse 08/24/2021 Steatosis of liver 11/27/2020 PCOS (polycystic ovarian syndrome) 06/11/2020 Overview (01/19/2024): Last Assessment & Plan: Suspected polycystic ovarian syndrome with clinical picture of hirsutism, obesity, mild insulin resistance and irregular periods. Prolonged discussion with Dr. Mansfield at the bedside who is also a skilled family medicine provider. Pelvic ultrasound was considered but whether or not the patient has cysts on her ovaries does not change our management given her above clinical picture consistent with PCOS. She would be a good candidate for low estrogen OCP, but unfortunately these are not on hospital formulary. Up-to-date recommends initiation of Junel or Loestrin. -Follow-up with her PCP will be arranged to consider the need for outpatient pelvic ultrasound in the future -Patient can decide if she wants to follow with her PCP versus a major general -We will prescribe OCP at discharge, to be picked up on Friday or Friday and initiated with outpatient PCP follow-up. Expect approximately 3 months for menstrual cycles to normalize. Diarrhea 06/11/2020 Leukocytosis 05/18/2020 Asthma 05/17/2020 Overview (01/19/2024): Last Assessment & Plan: No symptoms of acute exacerbation. Albuterol inhaler available if needed. Assessment & Plan (01/19/2024 10:11 AM EST): -Patient reports history of asthma. Reports being well controlled -rescue inhaler refill provided Hyperemesis 01/07/2016 Migraine with aura 11/06/2009 Mild intermittent asthma 03/08/2003 Resolved Problems Problem Noted Date Diagnosed Date Resolved Date Encounter to establish care 05/17/2024 09/30/2024 Assessment & Plan (05/17/2024 2:11 PM EDT): -personal medical, surgical, and medication histories reviewed along with family hx -routine health maintenance discussed Encounters Date Type Department Care Team Description 01/20/2025 10:15 AM EST Office Visit [facility] [address] [place] [phone] Gali Pollack NP Gastroesophageal reflux disease without esophagitis (Primary Dx); Fatty liver; Abnormal uterine bleeding (AUB) 01/20/2025 Travel 01/18/2025 Travel 12/10/2024 Telephone [facility] [address] [place] [address] Gali Pollack NP 12/09/2024 Telephone [facility] [address] [place] [phone] Gali Pollack NP Referral from Last 3 Months Immunizations Immunization Administration Dates Next Due Hep A, Adult 07/23/2023,01/15/2023 Hep B, adult 04/07/2024 Influenza injectable quadrivalent preservative f ree 12/17/2019 Tdap 12/17/2019 Family History Medical History Relation Name Comments Kidney nephrosis Brother Breast cancer Maternal Grandmother Cancer Maternal Grandmother No Known Problems Mother Cervical cancer Mother's Sister Relation Name Status Comments Brother Maternal Grandmother Mother Mother's Sister Social History Tobacco Use Types Packs/Day Years Used Date Smoking Tobacco: Never Passive Smoke Exposure: Never Smokeless Tobacco: Never Tobacco Cessation:Counseling Given: Not Answered Alcohol Use Standard Drinks/Week Comments Not Currently [...] Orientation Straight 01/19/2024 10 :40 AM EST Last Filed Vital Signs Vital Sign Reading [...] Mass Index 37.56 01/20/2025 10:51 AM EST Plan of Treatment Upcoming Encounters Date Type Department Care Team (Late st Contact Info) Description 02/24/2025 11:00 AM EST Office Visit [facility] [address], [place] [phone] Gali Pollack NP [address] [place] [address] Health Maintenance Due Date Last Done Comments Family Planning (PISQ) 06/21/2006 HPV Vaccines (1 - 3-dose series) 06/21/2006 Pneumococcal Vaccine: Pediatrics (0 to 5 Years) and At-Risk Patients (6 to 49) Years (1 of 2 - PCV) 06/21/2010 Pap Smear 06/21/2012 Cervical Cancer Screening 06/21/2021 HPV/Cotest 06/21/2021 Hepatitis B Vaccines (2 of 3 - 19+ 3-dose series) 05/05/2024 04/07/2024 COVID-19 Vaccine (1 - 2024-2 6 season) 2024 Influenza Vaccine (#1) 2024 12/17/2019 SDOH Screening 01/18/2025 01/19/2024 Alcohol/Substance Use Screening 03/24/2025 03/24/2024 Disability Screening 07/05/2025 07/05/2024 Depression Monitoring 07/20/2025 01/20/2025 , 01/20/2025 Tobacco Screening 01/20/2026 01/20/2025 Lipid Panel 03/24/2029 03/24/2024 DTaP/Tdap/Td Vaccines (2 - T d or Tdap) 12/16/2029 12/17/2019 Zoster Vaccines (1 of 2) 06/21/2041 RSV Patients and Patients Aged 60 years or older (1 - 1-dose 75+ series) 06/21/2066 Hepatitis A Vaccines Completed 07/23/2023, 01/15/2023 HIV Screening Completed 03/24/2024, 12/17/2019 Hepatitis C Screening Completed 03/24/2024 HIB Vaccines Aged Out No longer eligi ble based on patient's age to complete this topic IPV Vaccines Aged Out No longer eligi ble based on patient's age to complete this topic Meningococcal B Vaccine Aged Out No l onger eligible based on patient's age to complete this topic Meningococcal Vaccine Aged Out No josiah valarie eligible based on patient's age to complete this topic RSV under 20 months Aged Out No longe r eligible based on patient's age to complete this topic Rotavirus Vaccines Aged Out No longer eligible based on patient's age to complete this topic Procedures Procedure Name Priority Date/Time Associated Diagnosis Comments POCT , URINE Routine 01/20/2025 12:06 PM EST Abnormal uterine bleeding (AUB) TSH W/REFLEX TO FT4 Routine 01/20/2025 1 1:49 AM EST Abnormal uterine bleeding (AUB) IRON AND TOTAL IRON BINDING CAPACITY Routine 01/20/2025 11:49 AM EST Abnormal uterine bleeding (AUB) HEPATITIS C AB W/REFL TO HCV RNA, QN, PCR Routine 03/24/2024 11:25 AM EST Encounter for health-related screening HIV 1/2 ANTIGEN/ANTIBODY, FOURTH GENERATION W/RFL Routine 03/24/2024 11:25 AM EST Encounter for health-related screening LIPID PANEL, STANDARD Routine 03/24/2024 11:25 AM EST Class 3 severe obesity due to excess calories without serious comorbidity with body mass index (BMI) of 40.0 to 44.9 in adult (CMS/HCC) from Last 3 Months or Most Recently Relevant to Health Maintenance Results * POCT , urine manually resulted (01/20/2025 12:06 PM EST) Preg Test, Ur Negative Negative, Indeterminate, None Detected, Invalid, Specimen unsatisfactory for evaluation, Weakly Positive, 2+ QC Media Lot # [id number] Lot# Expiration Date Urine 01/20/2025 12:0 6 PM EST us Gali Pollack MANAGER ENVIRONMENTAL POINT OF CARE TEST ENTER/EDIT O RDERABLES Final Result * TSH W/Reflex to FT4 (01/20/2025 11:49 AM EST) TSH reflex Free T4 1.55 0.32 - 4.0 uIU/mL [facility] Blood Venous blood specimen / Unknown 01/20/2025 11:49 AM EST 01/20/2025 1:04 PM EST [facility] LAB BLOOD ORDERABLES Final Resu lt Performing Organization Address [facility] de Phone Number [facility] [address] [place] [phone] * Iron And Total Iron Binding Capacity (01/20/2025 11:49 AM EST) Iron 67 30 - 160 mcg/dL [facility] Total Iron Binding Capacity 265 228 - 428 mcg/dL [facility] Percent Iron Saturation 25 15 - 50 % [facility] Unsaturated Iron Binding 198 ug/dL [facility] Blood Venous blood specimen / Unknown 01/20/2025 11:49 AM EST 01/20/2025 1:04 PM EST [facility] LAB BLOOD ORDERABLES Final Resu lt Performing Organization Address [facility] de Phone Number [facility] [address] [place] [phone] * Hepatitis C Antibody with Reflex to HCV, RNA, Quantitative, Real-Time PCR (03/24/2024 11:25 AM EST) [facility] Hepatitis C Antibody Nonreactive Nonreactive [facility] Comment:Antibodies to HCV no t detected; does not exclude early acuteHCV infection. Blood Venous blood specimen / Unknown 03/24/2024 11:25 AM EST 03/24/2024 1:05 PM EST [facility] LAB BLOOD ORDERABLES Final Resu lt Performing Organization Address [facility] de Phone Number [facility] [address] [place] [phone] * HIV-1/2 Antigen and Antibodies, Fourth Generation, with Reflexes (03/24/2024 11:25 AM EST) Pathologist [facility] HIV AB/AG Nonreactive Nonreactive [facility] Comment:HIV-1 p24 Ag and/or HIV-1/HIV-2 Ab not detected.A test result that is nonreactive does not exclude thepossibility of exposure to or infection with HIV-1 and/orHIV-2. Nonreactive results in this assay for individualswith prior exposure to HIV-1 and/or HIV-2 may be due toantigen and antibody levels that are below the limit ofdetection of this assay.The [employer] HIV Ag/Ab Combo assay result andsupplemental assay results should be interpreted inconjunction with the patient's clinical presentation,history and other laboratory results. If the results areinconsistent with clinical evidence, additional testing issuggested to confirm the result. Blood Venous blood specimen / Unknown 03/24/2024 11:25 AM EST 03/24/2024 1:05 PM EST Gali Pollack NP LAB BLOOD ORDERABLES Final Resu lt [facility] [address] [place] [phone] * (ABNORMAL) Lipid Panel, Standard (03/24/2024 11:25 AM EST) Triglycerides 155(H) <150 mg/dL [facility] Comment:Desirable Triglyceri de: less than 150 mg/dLBorderline High Triglyceride 150-199 mg/dLHigh Triglyceride: 200-499 mg/dLVery High Triglyceride: greater than or equal to 5OO mg/dL Cholesterol 151 <200 mg/dL [facility] Comment:Desirable Cholestero l: less than 200 mg/dLBorderline High Cholesterol: 200-239 mg/dLHigh Cholesterol: greater than 239 mg/dL LDL Cholesterol Calculated 83 <100 mg/dL [facility] Comment:Desirable LDL: less than 100 mg/dLNear Optimal/Above Optimal LDL: 110- 129 mg/dLBorderline High LDL: 130-159 mg/dLHigh LDL: 160-189 mg/dLVery High LDL: greater than or equal to 190 mg/dL HDL Cholesterol 37(L) >40 mg/dL [facility] Comment:Desirable HDL: great er than 40 mg/dL Note: This HDL assay may give artificially low results in patients with liver disease. Blood Venous blood specimen / Unknown 03/24/2024 11:25 AM EST 03/24/2024 1:05 PM EST us Gali Pollack MANAGER ENVIRONMENTAL LAB BLOOD ORDERABLES Final Resu lt [facility] [address] [place] [phone] from Last 3 Months or Most Recently Relevant to Health Maintenance Insurance [employer] Care Teams Journeyman Level Acoustic Analyst Relationship Specialty Start Date End Date Gali Pollack NP [address] [place] [phone] PCP - General Family Medicine 04/14/23
--- OUTSIDE RECORDS SUMMARY | 2025-01-20 14:49 | XMS_ITS | Clinical Summary ---
Author Organization [facility] Address [address] [place] [address] Care Team Providers Care Assistant Commissioner Name Role Phone Ref, Has No Pcp Or Primary Care Provider Unavail able Allergies No known active allergies Medications sucralfate (CARAFATE) 1 gram tablet Take 1 tablet (1 g total) by mouth 4 times a day. 120 tablet 12/08/2021 Active amitriptyline (ELAVIL) 50 mg tablet Take 50 mg by mouth nightly. 04/17/2021 Active omeprazole (PriLOSEC) 40 mg capsule Take 1 capsule (40 mg total) by mouth once a day. 30 capsule 12/10/2021 Active Active Problems No known active problems Social History Tobacco Use Types Packs/Day Years Used Date Smoking Tobacco: Never Smokeless Tobacco: Never Tobacco Cessation:Counseling Given: Not Answered Comments No Sex and Gender Information Value Date Recorded Sex Assigned at Not on file Legal Sex Female 6:52 AM EDT Gender Identity Not on file Sexual Orientation Not on file Last Filed Vital Signs Vital Sign Reading Time Taken Comments Blood Pressure 163/111 12/11/2021 11:39 AM EDT Pulse 85 12/11/2021 11:39 AM EDT Temperature 36.7 C (98.1 F) 12/11/2021 12:10 PM EDT Respiratory Rate 20 12/11/2021 11:39 AM EDT Oxygen Saturation 96% 12/11/2021 11:39 AM EDT Inhaled Oxygen Concentration - - Weight 77.1 kg (170 lb) 12/10/2021 10:13 AM EDT Height 160 cm (5' 3 ) 12/10/2021 10:13 AM EDT Body Mass Index 30.11 12/10/2021 10:13 AM EDT Plan of Treatment Health Maintenance Due Date Last Done Comments Cervical Cancer Screening 1991 HIV Screening 1991 HPV and Pap Smear 1991 Pap Smear 1991 Varicella Vaccines (1 of 2 - 13+ 2-dose series) 06/21/2004 Hepatitis B Vaccines (1 of 3 - 19+ 3-dose series) 06/21/2010 Alcohol/Substance Use Screening 03/10/2024 COVID-19 Vaccine (1 - 2024-2 6 season) 2024 Influenza Vaccine (#1) 2024 12/17/2019 DTaP,Tdap,and Td Vaccines (2 - Td or Tdap) 12/16/2029 12/17/2019 Pneumococcal Vaccine: Pediat juancarlos (0-5 Years) and At-Risk Patients (6-50 Years) Aged Out No longer eligible b ased on patient's age to complete this topic Insurance [facility] Advance Directives * Presumed Full Code (Latest Code Status on File) Date Activated Date Inactivated Comments 12/10/2021 12:02 AM 12/10/2021 8:42 PM * Presumed Full Code Date Activated Date Inactivated Comments 12/10/2021 12:02 AM 12/10/2021 12:02 AM Care Teams Assistant Commissioner Relationship Specialty Start Date End Date Ref, Has No Pcp Or DO NOT EDIT THIS RECORD VIA PROVIDER ON THE FLY PCP - General Field Servicer 10/12/21
--- OUTSIDE RECORDS SUMMARY | 2025-01-20 14:49 | XMS_ITS | Clinical Summary ---
Author Organization [facility] Address [address] [address] Phone Care Team Providers Care Crisis Clinician Name Role Phone Pcp, Unknown Primary Care Provider Unavailabl e Allergies No known active allergies Medications albuterol 90 mcg/actuation inhaler Inhale 2 puffs into the lungs every 6 (six) hours as needed for wheezing. Active amitriptyline (ELAVIL) 25 MG tablet Take 25 mg by mouth nightly at bedtime. Active norethindrone-ethin yl estradiol-iron (LOESTRIN 24 FE 03/29) 1 mg-20 mcg Tab Take 1 tablet by mouth daily. 90 tablet 1 Active omeprazole (PRILOSEC) 20 mg TbEC Take 1 tablet (20 mg total) by mouth 2 (two) times a day. 60 tablet 1 Active ondansetron (ZOFRAN-ODT) 4 MG disintegrating tablet Take 1 tablet (4 mg total) by mouth every 8 (eight) hours as needed for nausea. 10 tablet 1 Active aluminum-magnesium hydroxide-simethico ne (MAALOX) 200-200-20 mg/5 mL Susp Take 30 mL by mouth every 6 (six) hours as needed (abdominal pain). 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 Expect approximately 3 months for menstrual cycles to normalize. Diarrhea 06/11/2020 Assessment & Plan (06/11/2020 9:05 AM EDT): Now resolving. Stool studies did test positive for C. difficile PCR with toxin NEGATIVE. No antibiotic treatment indicated. Hyperemesis 06/11/2020 Hematemesis 06/10/2020 Assessment & Plan (06/11/2020 9:06 AM EDT): Coughing up blood with frequent retching. -GI consult appreciated with Dr. Juarez today. -Clear liquids today, then n.p.o. at midnight for EGD on 06/12 -Continue PPI started at the time of the last admission -Monitor CBC, H&H currently stable Cannabis hyperemesis syndrom e concurrent with and due to cannabis abuse 06/09/2020 Assessment & Plan (06/11/2020 9:11 AM EDT): Nausea and vomiting now improving with supportive management. IV medications changed to oral tablets today. -GI consult appreciated -Diet advanced to clear liquids -Metoclopramide 5 mg PO every 6 hours as needed for vomiting -Zofran as needed every 8 hours nausea and vomiting not responsive to metoclopramide. -Lorazepam 0.5 mg PO every 6 hours as needed nausea and vomiting not responsive to above antiemetics. -Warm shower as needed -Continue IV hydration -Supportive care -Consult SW to help set up outpatient mental health services. Leukocytosis 05/18/2020 Assessment & Plan (06/11/2020 9:08 AM EDT): Significant rise in her white count in the setting of nausea and vomiting. Similar presentation to at the time of the last admission when her white count increased to 22,000 and then improved to 14,[address] of the abdomen pelvis at that time was reassuring without acute findings to explain the vomiting or abdominal pain. Remains afebrile.Again this admission white count kelly to almost 25,000, now improved to 14,000 on morning labs with IV fluid hydration and better control of her nausea/vomiting. Suspect similar picture as above. We will hold off on repeat CT scan of the abdomen at this time. Supportive care with close CBC monitoring. Assessment & Plan (05/18/2020 3:09 PM EST): - may be reactive -Monitor for fever, procalcitonin is not elevated which makes bacterial infection less likely Cyclic vomiting syndrome 05/17/2020 Assessment & Plan (06/10/2020 8:56 AM EDT): Recurrent admissions secondary to frequent marijuana use. Treatment as above. Assessment & Plan (05/18/2020 3:09 PM EST): -Presumed cyclic vomiting, cannabinoid hyperemesis also possible -She is having recurrent vomiting with ondansetron tried Phenergan today if not helpful we can go back to ondansetron which is at least somewhat helpful -Would continue lorazepam but will go down on the dose to see if it could be helpful with less side effects -Continue IV fluids continue clear liquid diet -Concern for GI bleeding H&H this morning is reassuring, continue PPI GI consult follow-up Hemoccult stool -[facility]ing records from [facility] and [facility] where she has received her previous care Asthma 05/17/2020 Assessment & Plan (06/10/2020 8:55 AM EDT): No symptoms of acute exacerbation. Albuterol inhaler available if needed. Assessment & Plan (05/17/2020 7:51 PM EST): -Currently no shortness of breath or wheezing -As needed albuterol ordered Anxiety disorder Assessment & Plan (06/11/2020 9:07 AM EDT): Patient uses marijuana daily since age 15 to cope with anxiety. Social work/BHRT consults as above. Family History Medical History Relation Comments No Known Problems Father No Known Problems Mother Relation Status Comments Father Mother Social History Tobacco Use Types Packs/Day Years Used Date Smoking Tobacco: Never Smokeless Tobacco: Never Alcohol Use Standard Drinks/Week Comments Not Currently 0 (1 standard drink = 0.6 oz pur e alcohol) Education Answer Date Recorded Are you interested in more education? Not on masood e 07/05/2022 Are you concerned about learning? Not on file 07/05/2022 No 07/05/2022 No 07/05/2022 Digital Access Answer Date Recorded No 08/05/2022 No 08/05/2022 Reliable internet access at home? Not on file 08/05/2022 Device with a working camera? Not on file Comments No Sex and Gender Information Value Date Recorded Sex Assigned at Female 05/26/2020 2:58 PM EDT Legal Sex Female 9:00 PM EDT Gender Identity Female 05/26/2020 2:58 PM EDT Sexual Orientation Choose not to disclose 2020 2:58 PM EDT Last Filed Vital Signs Vital Sign Reading Time Taken Comments Blood Pressure 179/88 12/21/2022 9:14 PM EDT Pulse 106 12/21/2022 9:14 PM EDT Temperature 37.2 C (99 F) 12/21/2022 9:14 PM EDT Respiratory Rate 18 12/21/2022 9:14 PM EDT Oxygen Saturation 98% 12/21/2022 9:14 PM EDT Inhaled Oxygen Concentration - - Weight 103.4 kg (228 lb) 02/12/2021 11:08 AM EST Height 157.5 cm (5' 2 ) 02/12/2021 11:08 AM EST Body Mass Index 41.7 02/12/2021 11:08 AM EST Plan of Treatment Health Maintenance Due Date Last Done Comments DEPRESSION SCREENING 2003 HEPATITIS C SCREENING 06/21/2009 HIV ONE-TIME SCREENING (18-6 5 YEARS) 06/21/2009 PNEUMOCOCCAL VACCINES (0-49 years) (1 of 2 - PCV) 06/21/2010 PAP SMEAR 06/21/2012 INFLUENZA VACCINE (#1) 2024 12/17/2019 COVID-19 VACCINE (1 - 2024-2 6 season) 2024 Adult Td,Tdap Booster 12/16/2029 12/17/2019 SMOKING STATUS SCREENING (On ce After 26 Yrs) Completed 06/13/2020 HEPATITIS A VACCINES Aged Out No long er eligible based on patient's age to complete this topic HIB VACCINES Aged Out No longer eligi ble based on patient's age to complete this topic IPV VACCINES Aged Out No longer eligi ble based on patient's age to complete this topic MENINGOCOCCAL VACCINES (ACWY) Aged Out No longer eligible based on patient's age to complete this topic MENINGOCOCCAL VACCINES (B) Aged Out N o longer eligible based on patient's age to complete this topic Medical Devices Not on file Insurance [facility] C[employer] [facility] C[facility] C[facility] A[facility] C3 A[facility] C3 [address]CO [id number] [place] [address] C3 ACO [facility] C3 ACO [facility] C3 ACO [facility] C3 ACO Advance Directives For more information, please contact: [phone] (9AM - 5PM Anna/[facility], Friday-Friday) * Full Code (Latest Code Status on File) Date Activated Date Inactivated Comments 06/09/2020 10:35 PM Question Answer Comments Code Status Confirmed With: Patient * Full Code Date Activated Date Inactivated Comments 05/17/2020 8:11 PM 06/09/2020 10:35 PM Question Answer Comments Code Status Confirmed With: Patient Care Teams Crisis Clinician Relationship Specialty Start Date End Date Pcp, Unknown PCP - General 06/12/20 Additional Source Comments The information contained in this document represents components of the legal health record. It is not the complete legal health record.[facility]
--- OUTSIDE RECORDS SUMMARY | 2025-01-20 14:49 | XMS_ITS | Encounter Summary ---
Author Organization [employer] Address [address] [place] [address] Care Team Providers Care Refrigeration Operator Name Role Phone Gali Pollack NP Primary Care Provider [phone] Encounter Details Date Type Department Care Team (Latest Contact Info) Description 01/20/2025 Travel Social History Tobacco Use Types Packs/Day [...] with others, in a hotel, in a prison, living outside on the street, on a [...] AM EST documented as of this encounter Functional Status * Over the past 2 weeks, how often have you been bothered by any of the following problems? Question Answer Date of Assessment Author Patient Health Questionnaire -2 Score 1 01/20/2025 11:09 AM Ludin Bustillo MA * Little interest or pleasure in doing things Answer Date of Assessment Author Not at all 01/20/2025 11:09 AM EST Ludin Bravo MA * Feeling down, depressed, or hopeless Answer Date of Assessment Author Several days 01/20/2025 11:09 AM Ludin Bustillo MA * Trouble falling or staying asleep, or sleeping too much Answer Date of Assessment Author More than half the days 01/20/2025 11:09 AM Ludin Bustillo MA * Feeling tired or having little [...] annoyed or irritable 2 01/20/2025 11:08 AM Ludin Bustillo MA Feeling afraid as if somethi ng [...] Bonilla MA documented as of this encounter Plan of Treatment Upcoming Encounters Date Type Department Care Team (Late st Contact Info) Description 02/24/2025 11:00 AM EST Office Visit [facility] [address] [place] [address] Gali Pollack NP [address] [place] [address] documented as of this encounter Visit Diagnoses Not on filedocumented in this encounter Additional Health Concerns Assessment Noted Time PHQ-9 Depression Total Score: 9 01/21/20 25 11:09 AM EST documented as of this encounter Care Teams Refrigeration Operator Relationship Specialty Start Date End Date Gali Pollack NP [address] [place] [address] PCP - General Family Medicine 04/14/23 documented as of this encounter
--- OUTSIDE RECORDS SUMMARY | 2025-01-20 14:49 | XMS_ITS | Encounter Summary ---
Author Organization [facility] Address [address] [place] [id number] Phone Care Team Providers Care Relief Docking Master Name Role Phone Unknown, Unknown MD Primary Care Provider Bentley ceballos Pcp, Unknown Primary Care Provider Unavailabl e Pcp, Unknown Primary Care Provider Unavailabl e Encounter Details Date Type Department Care Team (Late st Contact Info) Description 05/19/2020 Procedure Pass [facility] Endoscopy Admitting Dept Virtual Department [address] [place] [address] Social History Tobacco Use Types Packs/Day Years [...] PM EDT documented as of this encounter Plan of Treatment Not on file documented as of this encounter Visit Diagnoses Not on filedocumented in this encounter Additional Health Concerns Infection Onset Date Last Indicated Resolved Time CoV-Risk 06/09/2020 06/09/2020 06/12/2020 9:30 AM EDT C. diff 06/10/2020 06/10/2020 07/10/2020 1:23 AM EDT documented as of this encounter Care Teams Relief Docking Master Relationship Specialty Start Date End Date Unknown, Unknown, MD PCP - General 05/17/20 05/25/20 Pcp, Unknown PCP - General 05/26/20 06/11/20 Pcp, Unknown PCP - General 06/12/20 documented as of this encounter Additional Source Comments The information contained in this document represents components of the legal health record. It is not the complete legal health record.[facility]
== END 2025-01-20 11:40 | disposition home or self-care (01) ==
LOC: HO.HHCL 11:39
PROVIDERS: PCP Nurse Practitioner; Visit Provider Nurse Practitioner
DX: K21.9 Gastro-esophageal reflux disease without esophagitis (principal); N93.9 Abnormal uterine and vaginal bleeding, unspecified; N92.6 Irregular menstruation, unspecified
CPT/HCPCS: 36415; 83540; 84443

== ENCOUNTER 2025-02-24 18:13 | Outpatient (REF) | payer MEDICAID, SELFPAY ==
--- OUTSIDE RECORDS SUMMARY | 2025-02-24 11:00 | XMS_ITS | Encounter Summary ---
Author Organization [employer] Address [address] [place] [address] Care Team Providers Care Fractionation Plant Supervisor Name Role Phone Gali Pollack NP Primary Care Provider Marissa Christian Unavailable Gege Munoz Unavailable Reason for Visit * Reason Comments Follow-up Encounter Details Date Type Department Care Team (Late st Contact Info) Description 02/24/2025 11:00 AM EST Office Visit [facility] [address] [place] [address] Gali Pollack NP [address] [place], [place] [id number] Abnormal uterine bleeding (AUB) (Primary Dx); Mild intermittent asthma without complication Social History Tobacco Use Types Packs/Day Years [...] What is your housing situation today? I have gurmeet tovar 02/24/[address] you li ve. Do you have problems with any of the following? None of the above 02/24/2025 Food Insecurity Answer Date Recorded Within the past 12 months, y ou worried that your food would run out before you got money to buy more: Never True 02/24/2025 Within the past 12 months,th e food you bought just didn't last and you didn't have enough money to get more: Never True Transportation Answer Date Recorded In the past 12 months, has l ack of transportation kept you from medical appts, meetings, work or from getting things needed for daily living? No 02/24/2025 Utilities Answer Date Recorded In the past 12 months, has t he electric, gas, oil or water company threatened to shut off services in your home? No 02/24/2025 Depression Answer Date Recorded Patient Health Questionnaire-2 Score 1 01/20/2025 Internet Access Answer Date Recorded Internet Access Q1 Yes 02/24/2025 Internet Access Q2 Not on file 02/24/2025 Comments No Sex and Gender Information Value Date Recorded Sex Assigned at Female 01/07/2022 10:37 AM EDT Legal Sex Female 10:37 AM EDT Gender Identity Female 01/07/2022 10:37 AM EDT Sexual Orientation Straight 01/19/2024 10 :40 AM EST documented as of this encounter Last Filed Vital Signs Vital Sign Reading Time Taken Comments Blood Pressure 110/84 02/24/2025 11:58 AM EST Pulse 63 02/24/2025 11:58 AM EST Temperature 36.8 C (98.3 F) 02/24/2025 11:58 AM EST Respiratory Rate 15 02/24/2025 11:58 AM EST Oxygen Saturation 97% 02/24/2025 11:58 AM EST Inhaled Oxygen Concentration - - Weight 95.7 kg (211 lb) 02/24/2025 11:58 AM EST Height 162.6 cm (5' 4 ) 02/24/2025 11:58 AM EST Body Mass Index 36.22 02/24/2025 11:58 AM EST documented in this encounter Miscellaneous Notes * Assessment & Plan Note - Gali Pollack NP - 02/24/2025 11:00 AM ESTAssociated Problem(s): Asthma Orders: albuterol 108 (90 Base) MCG/ACT inhaler; Inhale 2 puffs every 6 (six) hours if needed for wheezing. documented in this encounter Plan of Treatment Scheduled Orders Name Type Priority Associated Diagnoses Orde r Schedule Chlamydia/N. Gonorrhoeae, PCR, Urine Lab Routine Abnormal uterine bleeding (AUB) Ordered: 02/24/2025 documented as of this encounter Visit Diagnoses Diagnosis Abnormal uterine bleeding (AUB)- Primary Mild intermittent asthma without complication documented in this encounter Additional Health Concerns Assessment Noted Time PHQ-9 Depression Total Score: 9 01/21/20 25 11:09 AM EST documented as of this encounter Care Teams Fractionation Plant Supervisor Relationship Specialty Start Date End Date Gali Pollack NP [address] [place] [id number] PCP - General Family Medicine 04/14/23 Marissa Christian Registered Nurse 02/14/25 Gege Munoz 02/14/25 documented as of this encounter
--- OUTSIDE RECORDS SUMMARY | 2025-02-24 19:55 | XMS_ITS | Clinical Summary ---
Author Organization [facility] Address [address] [place] [address] Care Team Providers Care Drill Punch Operator Name Role Phone Ref, Hasnopcp Primary Care Provider Unavailabl e Allergies No known active allergies Medications sucralfate [...] 3-dose series) 06/21/2010 Alcohol/Substance Use Screening 03/10/2024 Influenza Vaccine (#1) 2024 12/17/2019 COVID-19 Vaccine (1 - 2024-2 6 season) 2024 DTaP,Tdap,and Td Vaccines (2 - Td or Tdap) 12/16/2029 12/17/2019 Pneumococcal Vaccine: Pediat juancarlos (0-5 Years) and At-Risk Patients (6-50 Years) Aged Out No longer eligible b ased on patient's age to complete this topic Insurance [facility] Advance Directives * Presumed Full Code (Latest Code Status on File) Date Activated Date Inactivated Comments 12/10/2021 12:02 AM 12/10/2021 8:42 PM * Presumed Full Code Date Activated Date Inactivated Comments 12/10/2021 12:02 AM 12/10/2021 12:02 AM Care Teams Drill Punch Operator Relationship Specialty Start Date End Date Ref, Hasnopcp DO NOT EDIT THIS RECORD VIA PROVIDER ON THE FLY PCP - General Asthma Educator 10/12/21
--- OUTSIDE RECORDS SUMMARY | 2025-02-24 19:55 | XMS_ITS | Encounter Summary ---
Author Organization [facility] Address [address] [facility] [address] [place] [address] Phone Care Team Providers Care Hanger Name Role Phone Pcp, Unknown Primary Care Provider Unavailabl e Encounter Details Date Type Department Care Team (Late st Contact Info) Description 06/12/2020 Procedure Pass [facility]oscopy Admitting Dept Virtual Department [address] [place] [address] Social History Tobacco Use Types Packs/Day Years [...] 12:58 PM EDT Rebecca Bennett RN * [place] Suicide Severity Rating Scale (Screener/Recent Self-Report) Question [...] documented as of this encounter Care Teams Hanger Relationship Specialty Start Date End Date Pcp, Unknown PCP - General 06/12/20 documented as of this encounter Additional Source Comments The information contained in this document represents components of the legal health record. It is not the complete legal health record.[facility]
--- OUTSIDE RECORDS SUMMARY | 2025-02-24 19:55 | XMS_ITS | Clinical Summary ---
Author Organization [employer] Address [address] [facility] [facility] [address] [place] [address] Care Team Providers Care Specialty Manufacturing Supervisor Name Role Phone Gali Pollack NP Primary Care Provider [phone] Marissa Christian Unavailable [phone] Gege Munoz Unavailable Allergies No known active allergies Medications * This document contains information received from the source organization and may not represent a complete record from that organization. omeprazole (PriLOSEC) [address] capsuleIndicatio ns:Gastroesophag eal reflux disease without esophagitis TAKE 1 CAPSULE BY MOUTH BEFORE BREAKFAST AND BEFORE EVENING MEAL. DO NOT CRUSH OR CHEW. 180 capsule 2 10/01/19 25 Active famotidine (Pepcid) 20 MG tabletIndication s:Gastroesophage al reflux disease without esophagitis Take 1 tablet (20 mg) by mouth 2 times daily. 60 tablet 1 01/22/20 25 026 Active Drospirenone (Slynd) 4 MG tabletIndication s:Encounter for initial prescription of contraceptive pills Take 1 tablet by mouth Once per day. 28 tablet 2 01/28/20 25 026 Active albuterol 108 (90 Base) MCG/ACT inhalerIndicatio ns:Mild intermittent asthma without complication Inhale 2 puffs every 6 (six) hours if needed for wheezing. 18 g 2 02/25/20 25 026 Active albuterol 108 (90 Base) MCG/ACT inhalerIndicatio ns:Mild intermittent asthma without complication Inhale 2 puffs every 6 (six) hours if needed for wheezing. 18 g 2 01/19/20 24 025 Discontinued(R eorder (will not trigger notification to Pharmacy)) Active Problems Problem Noted Date Diagnosed Date [...] Gastroesophageal reflux disease 09/01/2021 Assessment & Plan (01/31/2025 5:06 AM EST): Orders: Helicobacter pylori Antigen, EIA, Stool; Future Referral to Gastroenterology; Future famotidine (Pepcid) 20 MG tablet; Take 1 tablet (20 mg) by mouth 2 times daily. Assessment & Plan (09/30/2024 2:00 PM EDT): [...] to follow with her PCP versus a pulmonary function technologist -We will prescribe OCP at discharge, to be picked up on Friday or Friday and initiated with outpatient PCP follow-up. Expect approximately 3 months for menstrual cycles to normalize. Diarrhea 06/11/2020 Leukocytosis 05/18/2020 Asthma 05/17/2020 Overview (01/19/2024): Last Assessment & Plan: No symptoms of acute exacerbation. Albuterol inhaler available if needed. Assessment & Plan (02/24/2025 12:35 PM EST): Orders: albuterol 108 (90 Base) MCG/ACT inhaler; Inhale 2 puffs every 6 (six) hours if needed for wheezing. Assessment & Plan (01/19/2024 10:11 AM EST): [...] Encounters Date Type Department Care Team Description 02/24/2025 11:00 AM EST Office Visit [address] [address] Gali Pollack NP Abnormal uterine bleeding (AUB) (Primary Dx); Mild intermittent asthma without complication 02/24/2025 Patient Outreach [address] [address] Gali Pollack NP 02/24/2025 Travel 02/23/2025 Travel 02/23/[address] [address] Gali Pollack NP Chart Prep 02/23/2025 Patient Outreach [address] [address] Gali Pollack NP Care Coordination ([facility]/CHW YaKEVAN [place]#2- ADT Outreach-[facility]) 02/15/2025 Patient Outreach [facility] [place] [address] Gali Pollack NP Care Coordination ([facility]/KEVAN Espinoza#1- ADT Outreach-[facility]) 02/14/2025 Patient Outreach [address] [place] [place] [address] Gali Pollack NP Care Coordination ([facility] Gege Munoz, Chart Review) 02/14/2025 Patient Outreach [facility] [place] [address] Gali Pollack NP Care Management ([facility] chart review) 02/14/2025 Patient Outreach [address] [address] Gali Pollack NP 02/03/2025 Orders Only [address] [address] Gali Pollack NP Irregular menses (Primary Dx); Abnormal uterine bleeding (AUB) 02/01/[address] [address] Gali Pollack NP Results 01/26/[address] [address] Gali Pollack NP requesting 01/24/[address] [address] Gali Pollack NP Medication Question 01/21/[address] [address] Gali Pollack NP Referral 01/20/2025 10:15 AM EST Office Visit [address] [address] Gali Plolack NP Gastroesophageal reflux disease without esophagitis (Primary Dx); Fatty liver; Abnormal uterine bleeding (AUB); Encounter for initial prescription of contraceptive pills 01/20/2025 Travel 01/18/2025 Travel 12/10/[address] [address] Gali Pollack NP 12/09/2024 Telephone [facility] [address], [place] [phone] Gali Pollack NP Referral from Last 3 [...] Mass Index 36.22 02/24/2025 11:58 AM EST Plan of Treatment Health Maintenance [...] season) 2024 Influenza Vaccine (#1) 2024 12/17/2019 Alcohol/Substance Use Screening 03/24/2025 03/24/2024 Disability Screening 07/05/2025 07/05/2024 Depression Monitoring 07/20/2025 01/20/2025 , 01/20/2025 Tobacco Screening 01/31/2026 01/31/2025 SDOH Screening 02/24/2026 02/24/2025 Lipid Panel 03/24/2029 03/24/2024 DTaP/Tdap/Td Vaccines (2 [...] (BMI) of 40.0 to 44.9 in adult ([facility]) from Last 3 Months or Most Recently [...] Free T4 1.55 0.32 - 4.0 uIU/mL [facility] Blood Venous blood specimen / Unknown 01/20/2025 11:49 AM EST 01/20/2025 1:04 PM EST us Gali Pollack NP LAB BLOOD ORDERABLES Final Resu lt [facility] [address] [place] [address] [phone] * Iron And Total Iron Binding Capacity (01/20/2025 11:49 AM EST) Iron 67 30 - 160 mcg/dL [facility] Total Iron Binding Capacity 265 228 - 428 mcg/dL [facility] Percent Iron Saturation 25 15 - 50 % [facility] Unsaturated Iron Binding 198 ug/dL [facility] Blood Venous blood specimen / Unknown 01/20/2025 11:49 AM EST 01/20/2025 1:04 PM EST us Gali Pollack [facility] LAB BLOOD ORDERABLES Final Resu lt Performing Organization Address [facility] Co de Phone Number [facility] [address] [place] [phone] * Hepatitis C Antibody with Reflex to HCV, RNA, Quantitative, Real-Time PCR (03/24/2024 11:25 AM EST) Hepatitis C Antibody Nonreactive Nonreactive [facility] Comment:Antibodies to HCV no t detected; does not exclude early acuteHCV infection. Blood Venous blood specimen / Unknown 03/24/2024 11:25 AM EST 03/24/2024 1:05 PM EST [facility] BLOOD ORDERABLES Final Resu lt Performing Organization Address [facility] de Phone Number [facility] [address] [place] [phone] * HIV-1/2 Antigen and Antibodies, Fourth Generation, with Reflexes (03/24/2024 11:25 AM EST) HIV AB/AG Nonreactive Nonreactive [facility] Comment:HIV-1 p24 Ag and/or HIV-1/HIV-2 Ab not detected.A test result that is nonreactive does not exclude thepossibility of exposure to or infection with HIV-1 and/orHIV-2. Nonreactive results in this assay for individualswith prior exposure to HIV-1 and/or HIV-2 may be due toantigen and antibody levels that are below the limit ofdetection of this assay.The [employer] HIV Ag/Ab Combo assay result andsupplemental assay results should be interpreted inconjunction with the patient's clinical presentation,history and other laboratory results. If the results areinconsistent with clinical evidence, additional testing issuggested to confirm the result. Blood Venous blood specimen / Unknown 03/24/2024 11:25 AM EST 03/24/2024 1:05 PM EST [facility] LAB BLOOD ORDERABLES Final Resu lt Performing Organization Address [facility] de Phone Number [facility] [address] [place] [phone] [phone] * (ABNORMAL) Lipid Panel, Standard (03/24/2024 11:25 AM EST) Triglycerides 155(H) <150 mg/dL [facility] Comment:Desirable Triglyceri de: less than 150 mg/dLBorderline High Triglyceride 150-199 mg/dLHigh Triglyceride: 200-499 mg/dLVery High Triglyceride: greater than or equal to 5OO mg/dL Cholesterol 151 <200 mg/dL [facility] Comment:Desirable Cholestero l: less than 200 mg/dLBorderline High Cholesterol: 200-239 mg/dLHigh Cholesterol: greater than 239 mg/dL LDL Cholesterol Calculated 83 <100 mg/dL [facility] Comment:Desirable LDL: less than 100 mg/dLNear Optimal/Above Optimal LDL: 110- 129 mg/dLBorderline High LDL: 130-159 mg/dLHigh LDL: 160-189 mg/dLVery High LDL: greater than or equal to 190 mg/dL HDL Cholesterol 37(L) >40 mg/dL [facility] Comment:Desirable HDL: great er than 40 mg/dL Note: This HDL assay may give artificially low results in patients with liver disease. Blood Venous blood specimen / Unknown 03/24/2024 11:25 AM EST 03/24/2024 1:05 PM EST Gali Pollack NP LAB BLOOD ORDERABLES Final Resu lt Performing Organization Address [facility] Co de Phone Number [facility] [address] [place] [address] [phone] from Last 3 Months or Most Recently Relevant to Health Maintenance Insurance [facility] C3 Care Teams Specialty Manufacturing Supervisor Relationship Specialty Start Date End Date Gali Pollack NP [address] [place] [address] PCP - General Family Medicine 04/14/23 Marissa Christian Registered Nurse 02/14/25 Gege Munoz 02/14/25
--- OUTSIDE RECORDS SUMMARY | 2025-02-24 19:55 | XMS_ITS | Data Portability ---
Author Organization [facility], [facility] Address [address] [place] [address] Assessment No assessment recorded. Plan of Treatment Reminders Order Date Submit Date Provider Last Modified By Organization Details Last Modified Time Details Appointments None recorded. Lab None recorded. Referral None recorded. Procedures None recorded. Surgeries None recorded. Imaging MRI, forearm, w/o contrast - ? MASS, CALL ASK FOR LENIN NURSE MEDICAL AUDITOR, PT ON [facility] 2023 024 [email or web address] [facility] [place], [address] [place] [address], [address], 10:18:35 Medication Orders None recorded. Patient TargetsNo targets recorded. Patient InstructionsNo instructions recorded. Reason for Referral None Reported. Results Created Date Observation Date Name Description Value Unit Range Abnormal Flag Note LastModifiedBy Organization Detail LastModifiedTime 12/26/19 24 12/26/2023 MRI, forea rm, w/wo contr ast No observ ation record ed. [email or web address], [address], 12/29/2023 15:30:54 Result Notes None recorded. Medical [...] Updated DateTime 12/12/2023 157.48 cm 43.9 kg/m2 497669.17 g AMOR GOMEZ [facility] 12/12/2023 14:41:08 Date Recorded Body height Body mass index (BMI) Body weight Provider Name and Address Organization Details Last Updated DateTime 02/02/2024 157.48 cm 43.9 kg/m2 816002.17 g AMOR GOMEZ [place] [facility] 02/02/2024 13:08:21 Social History [...] ICD10 Code Diagnosis IMO Codes Diagnosis Note [id number] MD Lacho [address] [place] [address] 12/12/2023 13:49:18 12/30/2023 12:56:03 Pain of right forearm 206883692 M79.631 Mass of forearm 62413701 6 R22.31 [id number] MD Lacho Chandler [address] [place] [address] 02/02/2024 12:40:38 03/07/2024 08:17:31 Pain of right forearm 698403056 M79.618 [id number] Health Concerns Section Related Observation LastModified by Organization Detai ls LastModified Time None Recorded Concern Status LastModified by Organization Details LastModified Time None Recorded Advance Directives Directive None Recorded Payers Insurance Date Sequence Insurance Name Policy Number Policy Duenas Covered Member ID Duenas Member ID Guarantor Name 03/07/2024 1 MEDICAID-[facility] (MEDICAID) Franchesca Razo [id number] Franchesca Razo Notes Date Note Type Note Provider Name and Address Organization Details Recorded Time 12/12/2023 text/html ROS as noted in the HPI Diagnosis: Soft tissue swelling right [id number] female who presents with intermittent severe swelling [...] Stanley MD [address], [place], [address], [facility] 12/17/2023 17:35:28 02/02/2024 text/html ROS as noted [...] Stanley MD [address], [place], [address], [facility] [place] [facility] 02/02/2024 14:09:26 OBGyn Episode No OBEpisode recorded.
--- OUTSIDE RECORDS SUMMARY | 2025-02-24 19:55 | XMS_ITS | Encounter Summary ---
Author Organization [facility] Address [address] [place] [address] Phone Care Team Providers Care Fruit Grader Name Role Phone Unknown, Unknown MD Primary Care Provider Bentley ceballos Pcp, Unknown Primary Care Provider Unavailabl e Pcp, Unknown Primary Care Provider Unavailabl e Encounter Details Date Type Department Care Team (Late st Contact Info) Description 05/19/2020 Procedure Pass [facility]oscopy Admitting Dept Virtual Department [address] [place] [address] Social History Tobacco Use Types Packs/Day Years [...] documented as of this encounter Care Teams Fruit Grader Relationship Specialty Start Date End Date Unknown, Unknown, MD PCP - General 05/17/20 05/25/20 Pcp, Unknown PCP - General 05/26/20 06/11/20 Pcp, Unknown PCP - General 06/12/20 documented as of this encounter Additional Source Comments The information contained in this document represents components of the legal health record. It is not the complete legal health record.[facility]
--- OUTSIDE RECORDS SUMMARY | 2025-02-24 19:55 | XMS_ITS | Encounter Summary ---
Author Organization [facility] Address [address] [address] Phone Care Team Providers Care Chainstitch Tunnel Elastic Operator Name Role Phone Unknown, Unknown MD Primary Care Provider Bentley ceballos Pcp, Unknown Primary Care Provider Unavailabl e Pcp, Unknown Primary Care Provider Unavailabl e Encounter Details Date Type Department Care Team (Late st Contact Info) Description 05/17/2020 Procedure Pass [facility], Ct Scan - [address] [address] Social History Tobacco Use Types Packs/Day Years [...] 05/17/2020 11:41 AM Kell Martinez RN * [place] Suicide Severity Rating Scale (Screener/Recent Self-Report) Question [...] documented as of this encounter Care Teams Chainstitch Tunnel Elastic Operator Relationship Specialty Start Date End Date Unknown, Unknown, MD PCP - General 05/17/20 05/25/20 Pcp, Unknown PCP - General 05/26/20 06/11/20 Pcp, Unknown PCP - General 06/12/20 documented as of this encounter Additional Source Comments The information contained in this document represents components of the legal health record. It is not the complete legal health record.[facility]
--- OUTSIDE RECORDS SUMMARY | 2025-02-24 19:55 | XMS_ITS ---
Author Organization [employer] Address [address] [facility] 7 [place] [address] Care Team Providers Care Hosting Engineer Name Role Phone Gali Pollack NP Primary Care Provider [phone] Marissa Christian Unavailable Gege Munoz Unavailable [facility] Status:Outreach In Progress (Enrolling) Start date:02/14/2025 Enrollment reason:ADT Feed Overview ED- Pt went to [facility] ED on 02/11/25. Case Team Name Relationship Phone Gege Munoz(Responsible Staff) [phone] Continued Care and Services Coordination
--- OUTSIDE RECORDS SUMMARY | 2025-02-24 19:55 | XMS_ITS | Encounter Summary ---
Author Organization [employer] Address [address] [facility] [address] [place] [address] Care Team Providers Care Machine Assembler For Puller Over Name Role Phone Gali Pollack NP Primary Care Provider [phone] Marissa Christian Unavailable [phone] Gege Munoz Unavailable Encounter Details Date Type Department Care Team (Latest Contact Info) Description 02/24/2025 Travel Social History Tobacco Use Types Packs/Day [...] documented as of this encounter Care Teams Machine Assembler For Puller Over Relationship Specialty Start Date End Date Gali Pollack NP [address] [place] [phone] PCP - General Family Medicine 04/14/23 Marissa Christian Registered Nurse 02/14/25 Gege Munoz 02/14/25 documented as of this encounter
--- OUTSIDE RECORDS SUMMARY | 2025-02-24 19:55 | XMS_ITS | Encounter Summary ---
Author Organization [employer] Address [address] [facility] [address] [place] [address] Care Team Providers Care Oil Lease Operator Name Role Phone Gali Pollack NP Primary Care Provider [phone] Marissa Christian Unavailable Gege Munoz Unavailable Reason for Visit * Reason Onset Date Comments Medication Question 01/24/2025 Encounter Details Date Type Department Care Team ([facility] st Contact Info) Description 01/24/2025 Telephone [facility] [address] [place], [place] [phone] Gali Pollack NP [address] [place], [place] [phone] Medication Question Social History Tobacco Use Types Packs/Day Years [...] with others, in a hotel, in a residential, living outside on the street, on a [...] encounter Miscellaneous Notes * Telephone Encounter - Sesar Christianson - 01/26/2025 11:15 AM EST Tc from pt calling back regarding prior message. Contact pt at [phone] * Telephone Encounter - Jessica Bowers - 01/25/2025 9:45 AM EST Tc from pt stating that the request for control during last visit on 01/20 and PCP forgot to send it. Please contact pt at [phone] * Telephone Encounter - Daniel Sherif - 01/24/2025 11:03 AM EST Tc from pt requesting a control pill documented in this encounter Plan of Treatment Not on file documented as of this encounter Visit Diagnoses Not on filedocumented in this encounter Additional Health Concerns Assessment Noted Time PHQ-9 Depression Total Score: 9 01/21/20 11:09 AM EST documented as of this encounter Care Teams Oil Lease Operator Relationship Specialty Start Date End Date Gali Pollack NP [address] [place] [address] PCP - General Family Medicine 04/14/23 Marissa Christian Registered Nurse 02/14/25 Gege Munoz 02/14/25 documented as of this encounter
--- OUTSIDE RECORDS SUMMARY | 2025-02-24 19:55 | XMS_ITS | Clinical Summary ---
Author Organization [facility] Address [address] [address] Phone Care Team Providers Care Clam Dredger Name Role Phone Pcp, Unknown Primary Care [...] to follow with her PCP versus a grocery stocker -We will prescribe OCP at discharge, to [...] consult follow-up Hemoccult stool -Questing records from [facility] where she has received her previous care [...] topic Medical Devices Not on file Insurance [facility] C3 ACO [facility] C3 ACO [id number] [place] [address] C3 ACO [facility] C3 ACO [facility] C3 ACO [facility] C3 ACO [facility] C3 ACO [facility] C3 ACO [facility] C3 ACO Advance Directives For more information, please contact: [phone] (9AM - 5PM [facility], Friday-Friday) * Full Code (Latest Code Status on File) Date Activated Date Inactivated Comments 06/09/2020 10:35 PM Question Answer Comments Code Status Confirmed With: Patient * Full Code Date Activated Date Inactivated Comments 05/17/2020 8:11 PM 06/09/2020 10:35 PM Question Answer Comments Code Status Confirmed With: Patient Care Teams Clam Dredger Relationship Specialty Start Date End Date Pcp, Unknown PCP - General 06/12/20 Additional Source Comments The information contained in this document represents components of the legal health record. It is not the complete legal health record.[facility]
--- OUTSIDE RECORDS SUMMARY | 2025-02-24 19:55 | XMS_ITS | Encounter Summary ---
Author Organization [employer] [facility] Address [address] [facility] 7 [place] [address] Care Team Providers Care Blasting Contract Man Name Role Phone Gali Pollack NP Primary Care Provider [phone] Marissa Christian Unavailable [phone] Gege Munoz Unavailable Reason for Referral * Consultation (Routine) - Authorized Specialty Diagnoses / Procedures Referred By Shena ordonez Referred To Contact Obstetrics and Gynecology Diagnoses Irregular menses Abnormal uterine bleeding (AUB) Gali Pollack NP [address] [place] [address] Phone: tel: fax: [facility] [address] [place] [address] Dr Soriano [address] [place] [phone] Phone: tel: fax: Referral ID Status Reason Start Date Expiration Date Visits Requested Visits Authorized [id number] Authorized Specialty Services Required 02/07/2025 02/07/2026 9 9 Encounter Details Date Type Department Care Team (Late st Contact Info) Description 02/03/2025 Orders Only [facility] [address] [place] [address] Gali Pollack NP [address] [place] [address] Irregular menses (Primary Dx); Abnormal uterine bleeding (AUB) Social History Tobacco [...] as of this encounter Plan of Treatment Scheduled Referrals Name Type Priority Associated Diagnoses Order Schedule Referral to Obstetrics / Gynecology Outpatient Referral Routine Irregular menses Abnormal uterine bleeding (AUB) Expected: 02/03/2025 (Approximate), Expires: 02/03/2026 documented as of this encounter Visit Diagnoses Diagnosis Irregular menses- Primary Irregular menstrual cycle Abnormal uterine bleeding (AUB) documented in this encounter Additional Health Concerns Assessment Noted Time PHQ-9 Depression Total Score: 9 01/21/20 11:09 AM EST documented as of this encounter Care Teams Blasting Contract Man Relationship Specialty Start Date End Date Gali Pollack NP [address] [place] [address] PCP - General Family Medicine 04/14/23 Marissa Christian Registered Nurse 02/14/25 Gege Munoz 02/14/25 documented as of this encounter
--- OUTSIDE RECORDS SUMMARY | 2025-02-24 19:55 | XMS_ITS | Clinical Summary ---
Author Organization [facility] Address [address] [place] [address] Phone Care Team Providers Care Flight Dispatcher Name Role Phone Physician, Pcp Unknown Primary Care Provider Coleen vailable Allergies No known active allergies Medications omeprazole (PriLOSEC) [address] capsule Take 1 capsule (20 mg total) by mouth 2 (two) times a day. 10/14/2024 Active norethindrone (AYGESTIN) 5 mg tablet Take 1 tablet (5 mg total) by mouth 1 (one) time each day for 5 days. 5 each 02/11/2025 02/17/20 Active Problems Problem Noted Date Diagnosed Date BOO (acute kidney injury) 12/30/2024 Encounters Date Type Department Care Team Description 02/11/2025 2:25 PM EST - 02/11/2025 3:10 PM EST Emergency [facility] Emergency [address] [place] [address] Venkat Rm MD Abnormal uterine bleeding (Primary Dx) Discharge Disposition: Home or Self Care 12/30/2024 4:59 PM EDT - 12/31/2024 2:00 PM EDT Hospital Encounter [facility]mediate Care Unit [address] [place] [address] Guillaume Ruiz MD Mersier, Jasmine, DO Touriel, Ross, MD Jones, Christopher, MD Rasul, Yar M, MD BOO (acute kidney injury) ([facility] V24) (Primary Dx); Cyclical vomiting associated with [...] for your loved ones. For example, child welfare counselor or elderly care for an older adult? [...] Reading Time Taken Comments Blood Pressure 122/82 02/11/2025 2:13 PM EST Pulse 93 02/11/2025 2:13 PM EST Temperature 36.7 C (98.1 F) 02/11/2025 2:13 PM EST Respiratory Rate 18 02/11/2025 2:13 PM EST Oxygen Saturation 97% 02/11/2025 2:13 PM EST Inhaled Oxygen Concentration - - Weight 90.7 kg (200 lb) 02/11/2025 11:23 AM EST Height 160 cm (5' 3 ) 02/11/2025 11:23 AM EST Body Mass Index 35.43 02/11/2025 11:23 AM EST Plan of Treatment Health Maintenance [...] 19+ 3-dose series) 05/05/2024 04/07/2024 COVID-19 Vaccine ( - 2024-2 6 season) 2024 Influenza Vaccine [...] Procedure Name Priority Date/Time Associated Diagnosis Comments CBC WITH AUTO DIFFERENTIAL STAT 02/11/2025 12:04 PM EST HCG, SERUM, QUALITATIVE STAT 02/11/2025 12:04 PM EST BASIC METABOLIC PANEL STAT 02/11/2025 12:04 PM EST CBC AND DIFFERENTIAL STAT 02/11/2025 12:04 PM EST ECG 12-LEAD Routine 12/31/2024 7:39 AM EDT [...] EDT from Last 3 Months Results * (ABNORMAL) CBC auto differential (02/11/2025 12:04 PM EST) Only the most recent of3 resultswithin the time period is included. [facility] Signature WBC 9.4 4.8 - 10.8 K/mcL LAB HEMETOLOGY METHOD 02/11/2025 12:30 PM [facility] RBC 5.30(H) 3.80 - 4.80 M/mcL LAB HEMETOLOGY METHOD 02/11/2025 12:30 PM [facility] Hemoglobin 14.5 11.5 - 16.0 g/dL LAB HEMETOLOGY METHOD 02/11/2025 12:30 PM [facility] Hematocrit 44.6 35.0 - 47.0 % LAB HEMETOLOGY METHOD 02/11/2025 12:30 PM [facility] MCV 85.0 79.0 - 98.0 FL LAB HEMETOLOGY METHOD 02/11/2025 12:30 PM [facility] MCH 27.6 27.0 - 32.0 pcg LAB HEMETOLOGY METHOD 02/11/2025 12:30 PM [facility] MCHC 32.5 32.0 - 37.0 g/dL LAB HEMETOLOGY METHOD 02/11/2025 12:30 PM [facility] RDW 14.4 11.0 - 15.0 % LAB HEMETOLOGY METHOD 02/11/2025 12:30 PM [facility] Platelets 291 130 - 400 K/mcL LAB HEMETOLOGY METHOD 02/11/2025 12:30 PM [facility] MPV 11.3(H) 7.0 - 11.0 FL LAB HEMETOLOGY METHOD 02/11/2025 12:30 PM [facility] NRBC 0.0 <1.0 % LAB HEMETOLOGY METHOD 02/11/2025 12:30 PM [facility] NRBC Absolute 0.00 <0.10 K/mcL LAB HEMETOLOGY METHOD 02/11/2025 12:30 PM [facility] Neutrophils Relative 64.6 % LAB HEMETOLOGY METHOD 02/11/2025 12:30 PM [facility] Lymphocytes Relative 21.8 % LAB HEMETOLOGY METHOD 02/11/2025 12:30 PM [facility] Monocytes Relative 12.6 % LAB HEMETOLOGY METHOD 02/11/2025 12:30 PM [facility] Eosinophils Relative 0.4 % LAB HEMETOLOGY METHOD 02/11/2025 12:30 PM [facility] Basophils Relative 0.2 % LAB HEMETOLOGY METHOD 02/11/2025 12:30 PM [facility] Immature Granulocytes Relative 0.4 % LAB HEMETOLOGY METHOD 02/11/2025 12:30 PM [facility] Neutrophils Absolute 6.07 1.50 - 7.00 K/mcL LAB HEMETOLOGY METHOD 02/11/2025 12:30 PM [facility] Lymphocytes Absolute 2.05 1.00 - 5.00 K/mcL LAB HEMETOLOGY METHOD 02/11/2025 12:30 PM [facility] Monocytes Absolute 1.19(H) 0.20 - 1.00 K/mcL LAB HEMETOLOGY METHOD 02/11/2025 12:30 PM [facility] Eosinophils Absolute 0.04 0.00 - 0.50 K/mcL LAB HEMETOLOGY METHOD 02/11/2025 12:30 PM [facility] Basophils Absolute 0.02 0.00 - 0.20 K/mcL LAB HEMETOLOGY METHOD 02/11/2025 12:30 PM [facility] Immature Granulocytes Absolute 0.04(H) 0.00 - 0.03 K/mcL LAB HEMETOLOGY METHOD 02/11/2025 12:30 PM EST [facility] Blood Venous blood specimen / Unknown Venipuncture / Unknown 02/11/2025 12:04 PM EST 02/11/2025 12:23 PM EST Myles Alegria MD LAB BLOOD ORDERABLES Final Resul t Performing Organization Address City/[facility]/ZIP Co de Phone Number [facility] [address] [place] [address], [place] [phone] * hCG, serum, qualitative (02/11/2025 12:04 PM EST) Only the most recent of2 resultswithin the time period is included. [facility] hCG Qual Negative Negative 02/11/2025 12:43 PM [facility] Blood Venous blood specimen / Unknown Venipuncture / Unknown 02/11/2025 12:04 PM EST 02/11/2025 12:23 PM EST us Myles Alegria MD LAB BLOOD ORDERABLES Final Resul t Performing Organization Address [facility]/ZIP Co de Phone Number [facility] [address] [place] [address], [place] [phone] * (ABNORMAL) Basic metabolic panel (02/11/2025 12:04 PM EST) Only the most recent of2 resultswithin the time period is included. [facility] Sodium 137 133 - 145 mmol/L 02/11/2025 1:00 PM [facility] Potassium 3.6 3.5 - 5.5 mmol/L 02/11/2025 1:00 PM [facility] Chloride 99 96 - 110 mmol/L 02/11/2025 1:00 PM [facility] CO2 25 21 - 32 mmol/L 02/11/2025 1:00 PM [facility] Anion Gap 13(H) 3 - 11 02/11/2025 1:00 PM [facility] Glucose 81 70 - 100 mg/dL 02/11/2025 1:00 PM [facility] BUN 19 5 - 25 mg/dL 02/11/2025 1:00 PM [facility] Creatinine 0.84 0.50 - 1.10 mg/dL 02/11/2025 1:00 PM [facility] eGFR 94 >=60 mL/min/1. 73m2 02/11/2025 1:00 PM [facility] Comment:Calculation based on the Chronic Kidney Disease Epidemiology Collaboration (CKD-EPI) equation refit without adjustment for race. BUN/Creatinine Ratio 22.6 02/11/2025 1:00 PM [facility] Calcium 8.9 8.5 - 10.5 mg/dL 02/11/2025 1:00 PM [facility] Blood Venous blood specimen / Unknown Venipuncture / Unknown 02/11/2025 12:04 PM EST 02/11/2025 12:23 PM EST Myles Alegria MD LAB BLOOD ORDERABLES Final Resul t [facility] [address] [place] [address], * ECG 12 lead (12/31/2024 7:39 AM EDT) Only the most recent of2 resultswithin the time period is included. Ventricular Rate ECG 65 BPM GEMUSE Atrial Rate 65 BPM GEMUSE P-R Interval 128 ms GEMUSE QRS Duration 86 ms GEMUSE Q-T Interval 554 ms GEMUSE QTc 576 ms GEMUSE P Wave [place] 24 degrees GEMUSE R [place] 26 degrees GEMUSE T [place] 15 degrees GEMUSE ECG Interpretation Critical Test Result: Long QTc Normal sinus rhythm Prolonged QT Abnormal ECG When compared with ECG of 30-DEC-2024 18:49, (unconfirmed) No significant change was found Confirmed by Abhilash PORTER JAMES ([id number]) on 12/31/2024 6:30:43 PM GEMUSE 12/31/2024 7:39 AM EDT 12/31/2024 6:30 PM EDT us Cem Cummings MD ECG ORDERABLES Final Resul t GEMUSE * (ABNORMAL) Urinalysis with reflex microscopic (12/31/2024 6:03 AM EDT) Specific [place] Urine 1.012 1.003 - 1.030 LAB URINALYSIS - AUTOMATED METHOD 12/31/2024 7:57 AM [facility] pH, Urine 5.5 5.0 - 8.0 pH LAB URINALYSIS - AUTOMATED METHOD 12/31/2024 7:57 AM [facility] Leukocytes, Urine Moderate(A) Negative LAB URINALYSIS - AUTOMATED METHOD 12/31/2024 7:57 AM [facility] Nitrite, Urine Negative Negative LAB URINALYSIS - AUTOMATED METHOD 12/31/2024 7:57 AM [facility] Protein, Urine Negative <=Trace mg/dL LAB URINALYSIS - AUTOMATED METHOD 12/31/2024 7:57 AM [facility] Glucose, Urine Negative Negative mg/dL LAB URINALYSIS - AUTOMATED METHOD 12/31/2024 7:57 AM [facility] Ketones, Urine 40(A) Negative mg/dL LAB URINALYSIS - AUTOMATED METHOD 12/31/2024 7:57 AM [facility] Urobilinogen , Urine 0.2 0.2 - 1.0 mg/dL LAB URINALYSIS - AUTOMATED METHOD 12/31/2024 7:57 AM [facility] Bilirubin, Urine Negative Negative LAB URINALYSIS - AUTOMATED METHOD 12/31/2024 7:57 AM [facility] Blood, Urine Trace(A) Negative LAB URINALYSIS - AUTOMATED METHOD 12/31/2024 7:57 AM EDT [facility] RBC, Urine 2 0 - 4 /HPF LAB URINALYSIS - AUTOMATED METHOD [facility] WBC, Urine >100(H) 0 - 4 /HPF LAB URINALYSIS - AUTOMATED METHOD 12/31/2024 7:57 AM EDT [facility] Squamous Epithelial, Urine 36 0 - 60 /LPF LAB URINALYSIS - AUTOMATED METHOD [facility] Crystals, Urine Moderate Uric Acid crystals. /LPF LAB URINALYSIS - AUTOMATED METHOD 12/31/2024 7:57 AM [facility] Bacteria, Urine Few(A) Negative /HPF LAB URINALYSIS - AUTOMATED METHOD 12/31/2024 7:57 AM [facility] Hyaline Casts, Urine 3 0 - 3 /LPF LAB URINALYSIS - AUTOMATED METHOD 12/31/2024 7:57 AM [facility] Urine Urine specimen obtained by clean catch procedure / Unknown Non-blood Collection / Unknown 12/31/2024 6:03 AM EDT 12/31/2024 6:45 AM EDT us Myles Alegria MD LAB URINE ORDERABLES Final Resul t [facility] [address] [place] [address], * Pascual urine culture tube (12/31/2024 6:03 AM EDT) Extra Tube Hold for add-ons. 12/31/2024 8:01 AM EDT [facility] Comment:Auto resulted. Urine Urine specimen obtained by clean catch procedure / Unknown Non-blood Collection / Unknown 12/31/2024 6:03 AM EDT 12/31/2024 6:46 AM EDT us Josh Bailey MD LAB URINE ORDERABLES Final Resul t [facility] [address] [place] [address], * (ABNORMAL) Drug abuse screen 8a panel, urine (12/31/2024 6:03 AM EDT) [facility] Amphetamine Screen, Ur Negative Negative LAB CHEMISTRY METHOD 5 8:11 AM EDT [facility] Comment:Certain OTC medicati ons containing ephedrine, phenylephrine, pseudoephedrine and phenylpropanolamine can cause false positive results. Barbiturate Screen, Ur Negative Negative LAB CHEMISTRY METHOD 5 8:11 AM [facility] Benzodiazepine Screen, Ur Negative Negative LAB CHEMISTRY METHOD 5 8:11 AM [facility] Cocaine Screen, Ur Negative Negative LAB CHEMISTRY METHOD 5 8:11 AM [facility] Opiate Screen, Ur Negative Negative LAB CHEMISTRY METHOD 5 8:11 AM [facility] Cannabinoid (THC) Screen, Ur Positive(A ) Negative LAB CHEMISTRY METHOD 5 8:11 AM [facility] Comment:Specimens from patie nts taking pantoprazole sodium (Protonix) have been shown to produce false positive results. Oxycodone Screen, Ur Negative Negative LAB CHEMISTRY METHOD 5 8:11 AM T [facility] Fentanyl, Ur Negative Negative LAB CHEMISTRY METHOD 5 8:11 AM [facility] Urine Urine specimen obtained by clean catch procedure / Unknown Non-blood Collection / Unknown 12/31/2024 6:03 AM EDT 12/31/2024 6:52 AM EDT Narrative [facility] - 12/31/2024 8:11 AM EDT Assay cutoffs: Amphetamines 1000 ng/mL Barbiturates 200 ng/mL Benzodiazepines 200 ng/mL Cocaine 300 ng/mL Fentanyl 1 ng/mL Opiates 300 ng/mL Oxycodone 100 ng/mL THC 50 ng/mL Semi-quantitative assay for screening purposes only. Unconfirmed screening result should not be used for non-medical purposes. *ALTERNATE METHOD CONFIRMATION DONE UPON REQUEST ONLY* Cem Cummings MD LAB URINE ORDERABLES Final Result Performing Organization Address [facility]/ZIP Co de Phone Number [facility] [address] [place] [address], [place] [phone] * (ABNORMAL) Eosinophils, urine (12/31/2024 6:03 AM EDT) Eosinophil % Urine 33(H) 0 % 12/31/2024 8:27 AM EDT [facility] WBC, Urine >100(H) 0 - 4 /HPF LAB URINALYSIS - AUTOMATED METHOD 12/31/2024 8:27 AM T [facility] Urine Urine specimen obtained by clean catch procedure / Unknown Non-blood Collection / Unknown 12/31/2024 6:03 AM EDT 12/31/2024 6:45 AM EDT Cem Cummings MD LAB URINE ORDERABLES Final Result Performing Organization Address City/[facility]/ZIP Co de Phone Number [facility] [address] [place] [address], [place] [phone] * Protein and creatinine with ratio, urine (12/31/2024 6:03 AM EDT) Protein, Urine 15 mg/dL LAB CHEMISTRY METHOD 12/31/2024 8:11 AM EDT [facility] Prot/Creat, Ur 0.18 <=0.20 mg/mg creat LAB CHEMISTRY METHOD 12/31/2024 8:11 AM EDT [facility] Creatinine, Urine 84.0 mg/dL LAB CHEMISTRY METHOD 12/31/2024 8:11 AM EDT [facility] Urine Urine specimen obtained by clean catch procedure / Unknown Non-blood Collection / Unknown 12/31/2024 6:03 AM EDT 12/31/2024 6:52 AM EDT us Cem Cummings MD LAB URINE ORDERABLES Final Result Performing Organization Address [facility]/State/ZIP Co de Phone Number [facility] [address] [place] [address], * Sodium, urine, random (12/31/2024 6:03 AM EDT) Sodium, Ur 13 mmol/L LAB CHEMISTRY METHOD 12/31/2024 8:11 AM EDT [facility] Urine Urine specimen obtained by clean catch procedure / Unknown Non-blood Collection / Unknown 12/31/2024 6:03 AM EDT 12/31/2024 6:52 AM EDT us Cem Cummings MD LAB URINE ORDERABLES Final Result Performing Organization Address [facility]/State/ZIP Co de Phone Number [facility] [address] [place] [address], [place] [phone] * Creatinine, urine, random (12/31/2024 6:03 AM EDT) Creatinine, Urine 84.0 mg/dL LAB CHEMISTRY METHOD 12/31/2024 8:11 AM EDT [facility] Urine Urine specimen obtained by clean catch procedure / Unknown Non-blood Collection / Unknown 12/31/2024 6:03 AM EDT 12/31/2024 6:52 AM EDT us Cem Cummings MD LAB URINE ORDERABLES Final Result Performing Organization Address City/[facility]/ZIP Co de Phone Number [facility] [address] [place] [address], * (ABNORMAL) Phosphorus (12/31/2024 5:17 AM EDT) Phosphorus 1.5(L) 2.5 - 4.5 mg/dL LAB CHEMISTRY METHOD 12/31/2024 7:30 AM EDT [facility] Blood Venous blood specimen / Unknown Venipuncture / Unknown 12/31/2024 5:17 AM EDT 12/31/2024 6:55 AM EDT us Cem Cummings MD LAB BLOOD ORDERABLES Final Result Performing Organization Address [facility]/ZIP Co de Phone Number [facility] [address] [place] [address], * Magnesium (12/31/2024 5:17 AM EDT) Only the most recent of2 resultswithin the time period is included. Magnesium 2.4 1.9 - 2.6 mg/dL LAB CHEMISTRY METHOD 12/31/2024 7:30 AM EDT [facility] Blood Venous blood specimen / Unknown Venipuncture / Unknown 12/31/2024 5:17 AM EDT 12/31/2024 6:55 AM EDT us Cem Cummings MD LAB BLOOD ORDERABLES Final Result Performing Organization Address [facility]/ZIP Co de Phone Number [facility] [address] [place] [address], * CT Abdomen Pelvis wo Contrast (12/30/2024 [...] by: Guillaume Canas MD on 12/30/2024 20:39:11 us Guillaume Ruiz MD IMG CT PROCEDURES Final Res ult * (ABNORMAL) Manual differential (12/30/2024 3:21 PM EDT) Neutrophils % 71.0 % LAB HEMETOLOGY METHOD 12/30/2024 4:19 PM EDT [facility] Lymphocytes % 17.0 % LAB HEMETOLOGY METHOD 12/30/2024 4:19 PM EDT [facility] Monocytes % 11.0 % LAB HEMETOLOGY METHOD 12/30/2024 4:19 PM EDT [facility] Eosinophils % 0.0 % LAB HEMETOLOGY METHOD 12/30/2024 4:19 PM EDT [facility] Basophils % 0.0 % LAB HEMETOLOGY METHOD 12/30/2024 4:19 PM EDT [facility] Neutrophils Absolute Manual 12.71(H) 1.50 - 7.00 K/mcL LAB HEMETOLOGY METHOD 12/30/2024 4:19 PM EDT [facility] Lymphocytes Absolute 3.04 1.00 - 5.00 K/mcL LAB HEMETOLOGY METHOD 12/30/2024 4:19 PM EDT [facility] Monocytes Absolute Manual 1.97(H) 0.20 - 1.00 K/mcL LAB HEMETOLOGY METHOD 12/30/2024 4:19 PM EDT [facility] Eosinophils Absolute Manual 0.00 0.00 - 0.50 K/mcL LAB HEMETOLOGY METHOD 12/30/2024 4:19 PM EDT [facility] Basophils Absolute Manual 0.00 0.00 - 0.20 K/mcL LAB HEMETOLOGY METHOD 12/30/2024 4:19 PM EDT [facility] Rbc Morphology See comment( A) Consistent with indices, Normal for LAB HEMETOLOGY METHOD 12/30/2024 4:19 PM EDT [facility] Comment:RBC: Morphology agre es with CBC Platelet Morphology - WAM See Note(A) Normal LAB HEMETOLOGY METHOD 12/30/2024 4:19 PM EDT [facility] Comment:PLT: Giant platelets seen Blood Venous blood specimen / Unknown Venipuncture / Unknown 12/30/2024 3:21 PM EDT 12/30/2024 3:45 PM EDT us Guillaume Ruiz MD LAB BLOOD ORDERABLES Final Result [facility] [address] [place] [address], * Lipase (12/30/2024 3:21 PM EDT) Pathologist [facility] Lipase 51 13 - 75 unit/L LAB CHEMISTRY METHOD 12/30/2024 4:14 PM EDT [facility] Blood Venous blood specimen / Unknown Venipuncture / Unknown 12/30/2024 3:21 PM EDT 12/30/2024 3:45 PM EDT Guillaume Ruiz MD LAB BLOOD ORDERABLES Final Result Performing Organization Address City/[facility]/ZIP Co de Phone Number [facility] [address] [place] [address], [place] [phone] * Ethanol (12/30/2024 3:21 PM EDT) [facility] Ethanol Level <3 0 - 10 mg/dL LAB CHEMISTRY METHOD 12/30/2024 5:57 PM EDT [facility] Blood Venous blood specimen / Unknown Venipuncture / Unknown 12/30/2024 3:21 PM EDT 12/30/2024 3:45 PM EDT Yeny Godwin DO LAB BLOOD ORDERABLES Final Re sult Performing Organization Address City/[facility]/ZIP Co de Phone Number [facility] [address] [place] [address], [place] [phone] * (ABNORMAL) Comprehensive metabolic panel (12/30/2024 3:21 PM EDT) [facility] Sodium 126(L) 133 - 145 mmol/L LAB CHEMISTRY METHOD 12/30/2024 4:23 PM EDT [facility] Potassium 3.0(L) 3.5 - 5.5 mmol/L LAB CHEMISTRY METHOD 12/30/2024 4:23 PM EDT [facility] Chloride 77(L) 96 - 110 mmol/L LAB CHEMISTRY METHOD 12/30/2024 4:23 PM EDT [facility] CO2 33(H) 21 - 32 mmol/L LAB CHEMISTRY METHOD 12/30/2024 4:23 PM [facility] Anion Gap 16(H) 3 - 11 LAB CHEMISTRY METHOD 12/30/2024 4:23 PM [facility] Glucose 94 70 - 100 mg/dL LAB CHEMISTRY METHOD 12/30/2024 4:23 PM [facility] BUN 40(H) 5 - 25 mg/dL LAB CHEMISTRY METHOD 12/30/2024 4:23 PM [facility] Creatinine 2.06(H) 0.50 - 1.10 mg/dL LAB CHEMISTRY METHOD 12/30/2024 4:23 PM [facility] eGFR 32(L) >=60 mL/min/1. 73m2 LAB CHEMISTRY METHOD 12/30/2024 4:23 PM [facility] Comment:Calculation based on the Chronic Kidney Disease Epidemiology Collaboration (CKD-EPI) equation refit without adjustment for race. BUN/Creatinine Ratio 19.4 LAB CHEMISTRY METHOD 12/30/2024 4:23 PM [facility] Calcium 9.8 8.5 - 10.5 mg/dL LAB CHEMISTRY METHOD 12/30/2024 4:23 PM [facility] AST (SGOT) 44(H) 10 - 42 unit/L LAB CHEMISTRY METHOD 12/30/2024 4:23 PM [facility] ALT (SGPT) 58 10 - 60 unit/L LAB CHEMISTRY METHOD 12/30/2024 4:23 PM [facility] Alkaline Phosphatase 87 42 - 121 unit/L LAB CHEMISTRY METHOD 12/30/2024 4:23 PM [facility] Total Protein 9.1(H) 6.0 - 8.0 g/dL LAB CHEMISTRY METHOD 12/30/2024 4:23 PM [facility] Albumin 4.6 3.2 - 5.0 g/dL LAB CHEMISTRY METHOD 12/30/2024 4:23 PM EDT [facility] Total Bilirubin 0.6 0.0 - 1.4 mg/dL LAB CHEMISTRY METHOD 12/30/2024 4:23 PM EDT [facility] Blood Venous blood specimen / Unknown Venipuncture / Unknown 12/30/2024 3:21 PM EDT 12/30/2024 3:45 PM EDT us Guillaume Ruiz MD LAB BLOOD ORDERABLES Final Result [facility] [address] [place] [address], [place] [phone] from Last 3 Months Insurance MEDICAID - [place] Advance Directives * Full Code - Default [...] currently active code status orders. Care Teams Flight Dispatcher Relationship Specialty Start Date End Date Physician, Pcp Unknown PCP - General 12/30/24
--- OUTSIDE RECORDS SUMMARY | 2025-02-24 19:55 | XMS_ITS | Encounter Summary ---
Author Organization [employer] Address [address] [facility] [address] [place] [address] Care Team Providers Care Cytopathology Technologist Name Role Phone Gali Pollack NP Primary Care Provider [phone] Marissa Christian Unavailable [phone] Gege Munoz Unavailable Reason for Visit * Reason Onset Date Comments Referral 12/09/2024 Encounter Details Date Type Department Care Team (Late st Contact Info) Description 12/09/2024 Telephone [facility] [address], [place] [phone] Gali Pollack NP [address] [place], [place] [phone] Referral Social History Tobacco Use Types Packs/Day [...] with others, in a hotel, in a alf, living outside on the street, on a [...] we are unable to process the referral. criminal research specialist will do so once insurance issue has been resolved. Thanks * Telephone Encounter - Jessica Bowers - 12/09/2024 12:50 PM EDT Tc from pt requesting an new referral for gastrology - [facility] - Dr. Garcia Contact pt at [phone] documented in this encounter Plan of Treatment Not on file documented as of this encounter Visit Diagnoses Not on filedocumented in this encounter Additional Health Concerns Assessment Noted Time PHQ-9 Depression Total Score: 1 01/19/20 24 9:38 AM EST documented as of this encounter Care Teams Cytopathology Technologist Relationship Specialty Start Date End Date Gali Pollack NP [address] [place] [id number] PCP - General Family Medicine 04/14/23 Marissa Christian Registered Nurse 02/14/25 Gege Munoz 02/14/25 documented as of this encounter
--- OUTSIDE RECORDS SUMMARY | 2025-02-24 19:55 | XMS_ITS | Encounter Summary ---
Author Organization [employer] Address [address] [place] [address] Care Team Providers Care Auto Emissions Technician Name Role Phone Gali Pollack NP Primary Care Provider [phone] Marissa Christian Unavailable Gege Munoz Unavailable Encounter Details Date Type Department Care Team (Late st Contact Info) Description 02/24/2025 Patient Outreach [facility] MED[facility]INE [address] [place] [address] Gali Pollack NP [address] [place] [address] Social History Tobacco Use Types Packs/Day Years [...] documented as of this encounter Care Teams Auto Emissions Technician Relationship Specialty Start Date End Date Gali Pollack NP [address] [place] [id number] PCP - General Family Medicine 04/14/23 Marissa Christian Registered Nurse 02/14/25 Gege Munzo 02/14/25 documented as of this encounter
--- OUTSIDE RECORDS SUMMARY | 2025-02-24 19:55 | XMS_ITS | Encounter Summary ---
Author Organization [employer] Address [address] [place] [address] Care Team Providers Care Telephoto Engineer Name Role Phone Gali Pollack NP Primary Care Provider [phone] Marissa Christian Unavailable [phone] Gege Munoz Unavailable Encounter Details Date Type Department Care Team (Latest Contact Info) Description 02/23/2025 Travel Social History Tobacco Use Types Packs/Day [...] documented as of this encounter Care Teams Telephoto Engineer Relationship Specialty Start Date End Date Gali Pollack NP [address] [place] [phone] PCP - General Family Medicine 04/14/23 Marissa Christian Registered Nurse 02/14/25 Gege Munoz 02/14/25 documented as of this encounter
--- OUTSIDE RECORDS SUMMARY | 2025-02-24 19:55 | XMS_ITS ---
Author Organization [employer] Address [address] [facility] [address] Care Team Providers Care Geothermal Field Technician Name Role Phone Gali Pollack NP Primary Care Provider [phone] Marissa Christian Unavailable Gege Munoz Unavailable CM Complex Status:Outreach In Progress (Enrolling) Start date:02/14/2025 Enrollment reason:ADT Feed Overview ED- Pt went to [facility] ED on 02/11/25. Case Team Name Relationship Phone Marissa Christian(Responsible Staff) Registered Nurse [phone] Continued Care and Services Coordination
--- OUTSIDE RECORDS SUMMARY | 2025-02-24 19:55 | XMS_ITS | Encounter Summary ---
Author Organization [facility] Address [address] [address] Phone Care Team Providers Care Chartered Financial Analyst Name Role Phone Pcp, Unknown Primary Care Provider Unavailabl e Encounter Details Date Type Department Care Team (Late st Contact Info) Description 02/12/2021 Procedure Pass [facility], Ct Scan - [address] [address] Social History Tobacco Use Types Packs/Day Years [...] 02/12/2021 11:09 AM Konstantin Segal, EDUAR * Saunders Suicide Severity Rating Scale (Screener/Recent Self-Report) Question [...] on filedocumented in this encounter Care Teams Chartered Financial Analyst Relationship Specialty Start Date End Date Pcp, Unknown PCP - General 06/12/20 documented as of this encounter Additional Source Comments The information contained in this document represents components of the legal health record. It is not the complete legal health record.[facility]
--- OUTSIDE RECORDS SUMMARY | 2025-02-24 19:55 | XMS_ITS | Encounter Summary ---
Author Organization [employer] Address [address] [place] [address] Care Team Providers Care Spring Winder Name Role Phone Gali Pollack NP Primary Care Provider [phone] Marissa Christian Unavailable [phone] Gege Munoz Unavailable Reason for Visit * Reason Onset Date Comments requesting 01/26/2025 Encounter Details Date Type Department Care Team ([facility] Contact Info) Description 01/26/2025 Telephone [facility] MEDICINE [address] [place], [place] [phone] Gali Pollack NP [address] [place] [address] requesting Social History Tobacco Use Types Packs/Day Years [...] with others, in a hotel, in a half-way, living outside on the street, on a [...] documented as of this encounter Care Teams Spring Winder Relationship Specialty Start Date End Date Gali Pollack NP [address] [place] [phone] PCP - General Family Medicine 04/14/23 Marissa Christian Registered Nurse 02/14/25 Gege Munoz 02/14/25 documented as of this encounter
--- OUTSIDE RECORDS SUMMARY | 2025-02-24 19:56 | XMS_ITS | Encounter Summary ---
Author Organization [employer] Address [address] [facility] [address] [place] [address] Care Team Providers Care Reeling And Tubing Machine Operator Name Role Phone Gali Pollack NP Primary Care Provider Marissa Christian Unavailable Gege Munoz Unavailable Reason for Visit * Reason Comments Care Coordination C3CM/CHW KEVAN Bryant#2- ADT Outreach-LVM Encounter Details Date Type Department Care Team (Latest Contact Info) Description 02/23/2025 Patient Outreach [facility] MEDICINE [address] [place] [address] Gali Pollack NP [address] [place] [address] Care Coordination (C3CM/KEVAN Liang#2- ADT Outreach-LVM) Social History Tobacco Use Types Packs/Day Years [...] AM EST documented as of this encounter Progress Notes * Ggee Munoz - 02/23/2025 10:40 AM EST CHW Gege Munoz placed outbound call to patient in regards to offer services for CM/CHW programservices as patient stratified on ADT Feed for ED visit to [facility] on 02/11/2025. No answer at this time. CHW LULY introducing herself from [facility] CM Department with CHW's name, department and direct contact number requesting call back. Will re-attempt to contact within 5 days. and address not confirmed. documented in this encounter Plan of Treatment Not on file documented as of this encounter Visit Diagnoses Not on filedocumented in this encounter Additional Health Concerns Assessment Noted Time PHQ-9 Depression Total Score: 9 01/21/20 25 11:09 AM EST documented as of this encounter Care Teams Reeling And Tubing Machine Operator Relationship Specialty Start Date End Date Gali Pollack NP [address] [place] [address] PCP - General Family Medicine 04/14/23 Marissa Christian Registered Nurse 02/14/25 Gege Munoz 02/14/25 documented as of this encounter
--- OUTSIDE RECORDS SUMMARY | 2025-02-24 19:56 | XMS_ITS | Encounter Summary ---
Author Organization [employer] Address [address] [place] [address] Care Team Providers Care Division Sales Manager Name Role Phone Gali Pollack NP Primary Care Provider Marissa Christian Unavailable Gege Munoz Unavailable Reason for Visit * Reason Onset Date Comments Chart Prep 02/23/2025 Encounter Details Date Type Department Care Team ([facility] st Contact Info) Description 02/23/2025 Telephone [facility] MEDICINE [address] [place], [place] [phone] Gali Pollack NP [address] [place] [address] Chart Prep Social History Tobacco Use Types Packs/Day Years [...] encounter Miscellaneous Notes * Telephone Encounter - Andra Rhodes [place] - 02/23/2025 2:47 PM EST Chart Prep Labs: done Images: not done US Pelvis schedule for 03/16/25 Referrals: appointment pending Vaccines due: Covid, Flu, PCV20, Hep B, and HPV Screenings: pap smear, LMP, and PISQ Overdue care gaps: SDOH and Oral health screening documented in this encounter Plan of Treatment Not on file documented as of this encounter Visit Diagnoses Not on filedocumented in this encounter Additional Health Concerns Assessment Noted Time PHQ-9 Depression Total Score: 9 01/21/20 25 11:09 AM EST documented as of this encounter Care Teams Division Sales Manager Relationship Specialty Start Date End Date Gali Pollack NP [address] [place] [phone] PCP - General Family Medicine 04/14/23 Marissa Christian Registered Nurse 02/14/25 Gege Munoz 02/14/25 documented as of this encounter
[2025-02-25 01:01] LABS: CT PCR Urine NOT DETECTED (Not Detect.); NG PCR Urine NOT DETECTED (Not Detect.)
== END 2025-02-24 18:14 | disposition home or self-care (01) ==
LOC: HO.HHCLNP 18:13
PROVIDERS: Visit Provider Nurse Practitioner
DX: N93.9 Abnormal uterine and vaginal bleeding, unspecified (principal); Z20.2 Contact with and (suspected) exposure to infections with a predominantly sexual mode of transmission
CPT/HCPCS: 87491; 87591